=== PATIENT | female | born 1950 | race Caucasian/White ===

== ENCOUNTER → 2017-03-19 | Outpatient (CLI) | payer MEDICARE, OTHER ==
--- NOTE | 2017-03-19 11:23 | WOMENS IMAGING REPORT ---
EXAM DESCRIPTION: BONE DENSITY HIP/SPINE COMPLETED DATE/TIME: 03/19/2017 10:34 am REASON FOR STUDY: N95.9 Z12.31 ENCNTR SCREEN MAMMOGRAM FOR MALIGNANT NEOPLASM OF KAMRYN N95.9 UNSPECI FIED MENOPAUSAL AND PERIMENOPAUSAL DISORDER COMPARISON: None. TECHNIQUE: Dual-Energy X-ray Absorptiometry (DEXA) of the AP Spine and Hip. LIMITATIONS: None. FINDINGS: LUMBAR SPINE: The bone mineral density (BMD) measured from L1-L4 in the AP projection correlates with a T-score of +1.2, which is normal as defined by the World Health Organization. Please note that this does includ e vertebral body endplate sclerosis and posterior element bony sclerosis. HIP: The bone mineral density (BMD) measured in the left femoral neck at the hip correlates with a T-score of -2.1, which is osteopenic as defined by the World Health Organization. IMPRESSION: 1. LUMBAR SPINE: Normal 2. HIP: Osteopenic COMMENT: The World Health Organization defines low BMD as follows: T-score: Normal: Greater than -1.0 Osteopenia: Between -1.0 and -2.5 Osteoporosis: Less than -2.5 without fractures Established osteoporosis: Less than -2.5 with fractures In general, you may wish to consider: Diagnosis Treatment Follow-up DEXA Normal BMD Prevention 2-3 years Osteopenia Prevention/Therapy 1-2 years Osteoporosis Therapy Yearly TECHNICAL DOCUMENTATION: JOB ID: [id number] [employer]- All Rights Reserved
== END ==
LOC: WI 09:38
PROVIDERS: ATTEND Family Medicine
DX: Z12.31 Encounter for screening mammogram for malignant neoplasm of breast (principal); N95.9 Unspecified menopausal and perimenopausal disorder
CPT/HCPCS: 77063; 77080; G0202; 77067

== ENCOUNTER 2019-12-06 13:51 | Inpatient (IN) | payer MEDICARE, OTHER ==
[~2019-12-06 13:51] MED LIST: PHENYLEPHRINE HCL INJ/PF 10 MG/1 ML SDV ONE; ROCURONIUM BROMIDE INJ 50 MG/5 ML VIAL IV ONE; SUCCINYLCHOLINE CHLORIDE INJ 200 MG/10 ML VIAL ONE
[2019-12-06] MEDS ORDERED: NORMAL SALINE 1000 ML 1,000 ML IV ONE ×3 (14:18→16:36)
[2019-12-06] MEDS ORDERED: PANTOPRAZOLE SODIUM 40 MG VIAL IV ONE (14:19)
[2019-12-06 14:36] LABS: ABSOLUTE BASOPHILS # (AUTO) 0.1 10^3/uL (0.0-0.2); ABSOLUTE EOSINOPHILS # (AUTO) 0.3 10^3/uL (0.0-0.6); ABSOLUTE NEUT (AUTO) 7.6 10^3/uL (1.7-8.2); ALBUMIN 3.6 g/dL (3.5-5.0); ALKALINE PHOSPHATASE 57 U/L (38-126); ANION GAP 9 (5-19); ASPARTATE AMINO TRANSFERASE 19 U/L (14-36); BASOPHILS % (AUTO) 0.7 % (0-2); BILIRUBIN,TOTAL 0.4 mg/dL (0.2-1.3); BLOOD UREA NITROGEN 26 mg/dL (7-20); CALCIUM 8.8 mg/dL (8.4-10.2); CARBON DIOXIDE 23 mmol/L (22-30); CHLORIDE 103 mmol/L (98-107); EOSINOPHILS % (AUTO) 2.8 % (0-6); GLUCOSE 104 mg/dL (75-110); HEMATOCRIT 34.1 % (36.0-47.0); HEMOGLOBIN 11.7 g/dL (12.0-15.5); LYMPHOCYTES % (AUTO) 24.6 % (13-45); MEAN CORPUSCULAR HGB CONC 34.2 g/dL (32.0-36.0); MEAN CORPUSCULAR VOLUME 88 fl (80-97); MONOCYTES % (AUTO) 8.6 % (3-13); PLATELET COUNT 220 10^3/uL (150-450); POTASSIUM 4.7 mmol/L (3.6-5.0); RED CELL DISTRIBUTION WIDTH 16.5 % (11.5-14.0); SEGMENTED NEUTROPHILS % (AUTO) 63.3 % (42-78); TOTAL CELLS COUNTED % (AUTO) 100 %; TOTAL PROTEIN 6.3 g/dL (6.3-8.2)
--- NOTE | 2019-12-06 15:03 | ER Document Report ---
ED General - General Chief Complaint: GI Bleeding Stated Complaint: GI BLEED Time Seen by Provider: 12/06/19 14:01 Primary Care Provider: MARCOS RODRIGUEZ PA-C [Primary Care Provider] - Follow up as needed Mode of Arrival: Medic Information source: Patient TRAVEL OUTSIDE OF THE [place] IN LAST 30 DAYS: No - HPI Notes: Patient presents with the sudden onset of vomiting blood. She states she was at the grocery store when she began to have some epigastric pain and vomited blood. She states she continues to have constant epigastric pain. It is moderate in intensity. It is sharp and burning. Nothing makes it better or worse. It radiates into her back. Paramedics states she vomited approximately 500 cc of bright red blood at the scene. She has vomited several more times since she has been in the emergency department. She states she has never vomited blood in the past. No history of GI bleeds. No history of blood thinners. She states she did have bariatric surgery about 10 years ago. - Related Data Allergies/Adverse Reactions: No Known Allergies Allergy (Unverified 03/09/12 18:57) Home Medications: mobic. omeprazole Past Medical History - General Information source: Patient - Social History Smoking Status: Former Smoker Frequency of alcohol use: None Drug Abuse: None Family History: Reviewed & Not Pertinent Patient has homicidal ideation: No - Immunizations Hx Diphtheria, Pertussis, Tetanus Vaccination: No Review of Systems - Review of Systems Constitutional: Malaise, Weakness. denies: Chills, Fever Cardiovascular: denies: Chest pain, Palpitations Respiratory: denies: Cough, Short of breath -: Yes All other systems reviewed and negative Physical Exam - Vital signs Vitals: Temp 98.1 F 12/06/19 14:12 Interpretation: Normal - General General appearance: Appears well, Alert - HEENT Head: Normocephalic, Atraumatic Eyes: Normal Pupils: PERRL - Respiratory Respiratory status: No respiratory distress Chest status: Nontender Breath sounds: Normal Chest palpation: Normal - Cardiovascular Rhythm: Regular Heart sounds: Normal auscultation Murmur: No - Abdominal Inspection: Normal Distension: No distension Bowel sounds: Normal Tenderness: Tender - Mild epigastric tenderness to palpation Organomegaly: No organomegaly - Back Back: Normal, Nontender - Extremities General upper extremity: Normal inspection, Nontender, Normal color, Normal ROM, Normal temperature General lower extremity: Normal inspection, Nontender, Normal color, Normal ROM, Normal temperature, Normal weight bearing. No: Godwin's sign - Neurological Neuro grossly intact: Yes Cognition: Normal Orientation: AAOx4 Boston Coma Scale Eye Opening: Spontaneous Boston Coma Scale Verbal: Oriented Boston Coma Scale Motor: Obeys Commands Boston Coma Scale Total: 15 Speech: Normal Motor strength normal: LUE, RUE, LLE, RLE Sensory: Normal - Psychological Associated symptoms: Normal affect, Normal mood - Skin Skin Temperature: Warm Skin Moisture: Dry Skin Color: Normal Course - Re-evaluation Re-evalutation: 12/06/19 15:00 At this time patient currently has a blood pressure of 131/66. Heart rate is 108. She has not had any more significant emesis that I have seen. She has been educated about the need to be transferred. I called and spoke with interventional radiology who states that they do not have the equipment to perform an interventional procedure on this patient. I also spoke with the surgeon, Dr. Hernandez, who states that patient needs either GI or interventional. I have called [facility] who has accepted the patient in transfer. We are trying to arrange for a helicopter at this time. She is receiving Protonix and fluids. She has been typed and screened. Blood products were obviously be given if necessary. - Vital Signs Vital signs: Temp Pulse Resp BP Pulse Ox 98.1 F 106 H 16 120/79 97 12/06/19 14:21 12/06/19 14:21 12/06/19 14:21 12/06/19 14:21 12/06/19 14:21 - Laboratory Result Diagrams: 12/06/19 14:00 12/06/19 14:00 Laboratory results interpreted by me: 12/06/19 12/06/19 14:00 14:00 WBC 12.0 H Hgb 11.7 L Hct 34.1 L RDW 16.5 H Sodium 134.8 L BUN 26 H Creatinine 0.49 L Critical Care Note - Critical Care Note Total time excluding time spent on procedures (mins): 55 Comments: Approximate 55 minutes of critical care time were spent on this patient. This included multiple reassessments. And included talking to multiple consultants. It included reviewing labs. Discharge - Discharge Clinical Impression: Upper GI hemorrhage Condition: Critical Disposition: Pending Sale To [facility] Referrals: MARCOS RODRIGUEZ PA-C [Primary Care Provider] - Follow up as needed
[2019-12-06] MEDS ORDERED: NORMAL SALINE 250 ML IV PRN ×3 (15:21→22:55)
--- NOTE | 2019-12-06 16:47 | PDOC H&P ---
History of Present Illness Admission Date/PCP: 12/06/19 16:22 MARCOS RODRIGUEZ PA-C History of Present Illness: YELITZA MCMILLAN is a 69 year old vhgppi37/04/20 16:12 Initially I discussed the case with Dr. Hernandez. I also discussed it with interventional radiology here. Interventional radiology told me they did not have the coils to do the procedure. It was decided that patient's best care would be if she was transferred. Patient was accepted in transfer. While we are waiting for the helicopter to arrive patient suddenly became hypotensive, pale, diaphoretic and altered. Patient immediately had another liter of fluids started and was placed in reverse Trendelenburg. Her blood pressure did come up to 117 systolic. Pulse came down to 102. Her color did come back and became more alert and talkative. Blood had already been ordered in the meantime before this episode. We called and asked for to be rushed once this episode happened. We have now started blood transfusion. I then called Dr. Hernandez back and stated that I was concerned that maybe she was not stable for transfer. He has come and seen the patient and believes that she should not be transferred and is going to take the patient to the operating room. Past Medical History Cardiac Medical History: Reports: Hypertension Past Surgical History Past Surgical History: Reports: Gastric Bypass Surgery, Orthopedic Surgery - l. knee Social History Smoking Status: Former Smoker Family History Family History: Reviewed & Not Pertinent Parental Family History Reviewed: No Children Family History Reviewed: NA Sibling(s) Family History Reviewed.: NA Medication/Allergy Home Medications: Divalproex Sodium [Depakote Er 500 Mg Tab.Sr] 3,000 mg PO QHS 03/09/12 Allergies/Adverse Reactions: No Known Allergies Allergy (Unverified 03/09/12 18:57) Review of Systems Constitutional: PRESENT: anorexia, fatigue, weight loss Eyes: ABSENT: as per HPI, visual disturbances, other Ears: ABSENT: as per HPI, hearing changes, other Nose, Mouth, and Throat: ABSENT: as per HPI, headache(s), mouth pain, sore throat, vertigo, other Breasts: ABSENT: as per HPI, other Cardiovascular: ABSENT: as per HPI, chest pain, dyspnea on exertion, edema, orthropnea, palpitations, other Respiratory: ABSENT: as per HPI, cough, dyspnea, hemoptysis, sputum, other Gastrointestinal: PRESENT: hematemesis, melena, nausea, vomiting Genitourinary: ABSENT: as per HPI, difficulty urinating, dysuria, hematuria, nocturia, other Integumentary: ABSENT: as per HPI, diaphoresis, erythema, lesions, pruritus, rash, wounds, other Neurological: PRESENT: confusion, convulsions Endocrine: ABSENT: as per HPI, cold intolerance, flushing, heat intolerance, menstrual abnormalities, polydipsia, polyphagia, polyuria, other Hematologic/Lymphatic: ABSENT: as per HPI, easy bleeding, easy bruising, lymphad enopathy, other Allergic/Immunologic: ABSENT: as per HPI, seasonal rhinorrhea, other Physical Exam Vital Signs: Temp Pulse Resp BP Pulse Ox 97.9 F 98 14 157/70 H 99 12/06/19 16:01 12/06/19 16:31 12/06/19 16:31 12/06/19 16:30 12/06/19 16:31 Intake & Output 12/05/19 12/06/19 12/07/19 06:59 06:59 06:59 Intake Total 3300 Balance 3300 Weight 86.183 kg General appearance: PRESENT: no acute distress Head exam: PRESENT: normocephalic Eye exam: PRESENT: EOMI Ear exam: PRESENT: normal external ear exam Mouth exam: PRESENT: moist Teeth exam: PRESENT: poor dentation Respiratory exam: PRESENT: clear to auscultation shwetha Cardiovascular exam: PRESENT: RRR Pulses: PRESENT: normal radial pulses, normal femoral pulses Breast: PRESENT: Normal GI/Abdominal exam: PRESENT: soft, other - bright red blood per ng tube. Rectal exam: PRESENT: deferred Gentrourinary exam: PRESENT: indwelling catheter Extremities exam: PRESENT: full ROM Musculoskeletal exam: PRESENT: full ROM Neurological exam: PRESENT: altered, awake Skin exam: PRESENT: dry Results Laboratory Results: 12/06/19 14:00 12/06/19 14:00 12/06/19 12/06/19 12/06/19 14:00 14:00 14:00 WBC 12.0 H RBC 3.90 Hgb 11.7 L Hct 34.1 L MCV 88 MCH 30.0 MCHC 34.2 RDW 16.5 H Plt Count 220 Seg Neutrophils % 63.3 Sodium 134.8 L Potassium 4.7 Chloride 103 Carbon Dioxide 23 Anion Gap 9 BUN 26 H Creatinine 0.49 L Est GFR ( Amer) > 60 Glucose 104 Calcium 8.8 Total Bilirubin 0.4 AST 19 Alkaline Phosphatase 57 Total Protein 6.3 Albumin 3.6 Blood Type Cancelled Antibody Screen Cancelled 12/06/19 14:42 WBC RBC Hgb Hct MCV MCH MCHC RDW Plt Count Seg Neutrophils % Sodium Potassium Chloride Carbon Dioxide Anion Gap BUN Creatinine Est GFR ( Amer) Glucose Calcium Total Bilirubin AST Alkaline Phosphatase Total Protein Albumin Blood Type O POSITIVE Antibody Screen NEGATIVE Assessment & Plan - Plan Summary Plan Summary: Impression this is a 69-year-old female with a previous history of gastric bypass surgery. She has had previous history of ulcer disease which has been treated by [id number] proton pump inhibitors. She is really never been followed for her ulcer disease. She is had also had poor follow-up after gastric bypass surgery. She presents today with acute onset of vigorous upper GI bleeding hematemesis with bright red blood reported by the emergency room doctor is at [facility] 700 cc when she arrived here. That was ongoing after she had the initial 700 cc. An NG tube was placed which shows bright red blood being suctioned from her upper intestinal tract. She is also had fairly bright blood from her rectum. She remained somewhat hypotensive in the emergency room did respond initially to IV fluids but subsequent to that had another dip in her blood pressure upon waiting for the helicopter to transfer her divided. Therefore she is deemed by the emergency room physician and me is unstable for transfer at this point since she is in a Trendelenburg position with a marginal blood pressure. She is received 2 units of blood since her stay in the emergency room as well as 3 units of IV fluid she continues to have some blood per NG tube she will be taken to the operating room now for endoscopy and possible laparotomy. The risks and benefits of been explained to her caregiver which include bleeding infection pulmonary embolism stroke myocardial infarction and . She also understands the possibility of injury to adjacent organs including the pancreas the colon the small bowel the spleen and hepatic ducts. She understands the possibility of need for additional surgery and continued bleeding postoperatively. She will be given an ICU bed subsequent to her surgery.
--- NOTE | 2019-12-06 16:50 | Operative Report ---
Nonrecallable Operative Report DATE OF SURGERY: 12/06/19 PREOPERATIVE DIAGNOSIS: GI bleeding, hypotension due to to hemorrhagic shock. POSTOPERATIVE DIAGNOSIS: GI bleeding hypotension due to hemorrhagic shock. OPERATION: Right femoral line placement SURGEON: AMINAH COSTA ANESTHESIA: Local TISSUE REMOVED OR ALTERED: None COMPLICATIONS: None ESTIMATED BLOOD LOSS: 5 cc INTRAOPERATIVE FINDINGS: See note PROCEDURE: After appropriate timeout site verification the right groin was prepped and dr aped in usual sterile fashion. Using 1% lidocaine plain a small skin wheal was made over the femoral vein. The vein was then accessed with a 22-gauge needle for a finder needle. After appropriate contact of the vein was made we then use a 16-gauge needle passed into the vein through the needle a J-wire was placed into the inferior vena cava. A small skin diamond was made on this at the skin level with a an 11 blade. The dilator was then utilized to dilate a tract. The dilator was then removed and a triple-lumen catheter was placed over the wire secured in place with 2-0 silk suture. Patient tolerated the procedure well. Estimated blood loss 5 cc no complications
[2019-12-06] MEDS ORDERED: EPINEPHRINE INJ 1 MG/10 ML DISP.SYRIN ONE (17:05)
[2019-12-06] MEDS ORDERED: DEXAMETHASONE SOD PHOSPHATE INJ 4 MG/1 ML VIAL ONE (17:06)
[2019-12-06] MEDS ORDERED: ONDANSETRON HCL INJ/PF 4 MG/2 ML SDV ONE (17:06)
[2019-12-06] MEDS ORDERED: MIDAZOLAM 2 MG/2 ML INJ ONE (17:06)
[2019-12-06] MEDS ORDERED: FENTANYL CITRATE INJ/PF 100 MCG/2 ML AMPUL ONE ×3 (17:06→22:31)
[2019-12-06] MEDS ORDERED: PROPOFOL INJ 200 MG/20 ML VIAL IV ONE (17:07)
[2019-12-06 18:16] LABS: ABSOLUTE BASOPHILS # (AUTO) 0.1 10^3/uL (0.0-0.2); ABSOLUTE EOSINOPHILS # (AUTO) 0.1 10^3/uL (0.0-0.6); ABSOLUTE LYMPHOCYTES (AUTO) 1.6 10^3/uL (0.5-4.7); ABSOLUTE MONOCYTES (AUTO) 0.6 10^3/uL (0.1-1.4); ABSOLUTE NEUT (AUTO) 8.1 10^3/uL (1.7-8.2); BASOPHILS % (AUTO) 0.8 % (0-2); HEMATOCRIT 25.8 % (36.0-47.0); LYMPHOCYTES % (AUTO) 15.4 % (13-45); MEAN CORPUSCULAR HEMOGLOBIN 30.3 pg (27.0-33.4); MEAN CORPUSCULAR HGB CONC 34.9 g/dL (32.0-36.0); MEAN CORPUSCULAR VOLUME 87 fl (80-97); MONOCYTES % (AUTO) 5.8 % (3-13); PLATELET COUNT 147 10^3/uL (150-450); RED BLOOD COUNT 2.98 10^6/uL (3.72-5.28); RED CELL DISTRIBUTION WIDTH 14.6 % (11.5-14.0); TOTAL CELLS COUNTED % (AUTO) 100 %; WHITE BLOOD COUNT 10.5 10^3/uL (4.0-10.5)
[2019-12-06] MEDS ORDERED: CALCIUM GLUC IN NACL, ISO-OSM 1 GM/50 ML RTUPB IV ONE (18:22)
[2019-12-06] MEDS ORDERED: CALCIUM GLUCONATE 1000 MG/10 ML INJ IV ONE (18:23)
[2019-12-06] MEDS ORDERED: CEFAZOLIN INJ 1 GM VIAL ONE (18:29)
[2019-12-06] MEDS ORDERED: METRONIDAZOLE 500 MG/NS RTU 500 MG/100 ML RTUPB IV ONE (18:29)
[2019-12-06] MEDS ORDERED: METHYLENE BLUE 50 MG/10 ML AMPULE ONE (19:05)
--- NOTE | 2019-12-06 19:08 | EKG REPORT ---
SEVERITY:- ABNORMAL ECG - SINUS TACHYCARDIA PROBABLE INFERIOR INFARCT, OLD LA ENLARGEMENT : Confirmed by: Eugene Weiner MD 06-Dec-2019 19:07:48
[2019-12-06] MEDS ORDERED: RINGERS SOLUTION,LACTATED 1,000 ML IV ONE (21:20)
[2019-12-06] MEDS ORDERED: FENTANYL CITRATE INJ/PF 100 MCG/2 ML AMPUL IV ONE ×2 (22:00→22:51)
[2019-12-06 22:17] LABS: ARTERIAL BLOOD BASE EXCESS -13.8 mmol/L; ARTERIAL BLOOD H2CO3 1.21 mmol/L (1.05-1.35); ARTERIAL BLOOD HCO3 13.8 mmol/L (20-24); ARTERIAL BLOOD PCO2 40.3 mmHg (35-45); ARTERIAL BLOOD PO2 139.5 mmHg (80-100); ARTERIAL BLOOD TOTAL CO2 15.1 mmol/L (21-25)
[2019-12-06 22:20] LABS: ARTERIAL BLOOD FIO2 40%; HEMATOCRIT 20.6 % (36.0-47.0); MEAN CORPUSCULAR HEMOGLOBIN 30.7 pg (27.0-33.4); MEAN CORPUSCULAR HGB CONC 33.7 g/dL (32.0-36.0); RED BLOOD COUNT 2.26 10^6/uL (3.72-5.28); RED CELL DISTRIBUTION WIDTH 14.6 % (11.5-14.0); WHITE BLOOD COUNT 11.3 10^3/uL (4.0-10.5)
[2019-12-06 22:21] LABS: ARTERIAL BLOOD PH 7.15 (7.35-7.45)
[2019-12-06 22:29] LABS: INTERNATIONAL RATION (INR) 1.65; PROTHROMBIN TIME 19.7 SEC (11.4-15.4)
[2019-12-06 22:30] LABS: PARTIAL THROMBOPLASTIN TIME 31.9 SEC (23.5-35.8)
[2019-12-06 22:34] LABS: ALBUMIN 1.5 g/dL (3.5-5.0); ALKALINE PHOSPHATASE 30 U/L (38-126); ANION GAP 11 (5-19); ASPARTATE AMINO TRANSFERASE 93 U/L (14-36); BILIRUBIN,TOTAL 0.2 mg/dL (0.2-1.3); BLOOD UREA NITROGEN 24 mg/dL (7-20); CARBON DIOXIDE 16 mmol/L (22-30); CHLORIDE 107 mmol/L (98-107); GLUCOSE 297 mg/dL (75-110); PHOSPHORUS 5.5 mg/dL (2.5-4.5); POTASSIUM 4.4 mmol/L (3.6-5.0); TOTAL PROTEIN 3.1 g/dL (6.3-8.2)
--- NOTE | 2019-12-06 22:36 | RADIOLOGY REPORT (SQ) ---
CLINICAL INDICATION: intubated, check tube placement. TECHNIQUE: A single portable AP view was obtained of the chest at 2148 hours. COMPARISON: None available. FINDINGS: The cardiomediastinal silhouette is prominent. The lungs are of low volume but grossly clear. No evidence of effusion or pneumothorax. Endotracheal tube tip and nasogastric tube tip are both in satisfactory position. There also appears to be a left basilar chest drain Right shoulder obscured by postprocessing markers. IMPRESSION: Endotracheal tube and nasogastric tube are in satisfactory position.. There also appears be a left basilar chest drain.
[2019-12-06 22:40] LABS: FIBRINOGEN 139 mg/dL (209-497)
[2019-12-06 22:44] LABS: CALCIUM 6.8 mg/dL (8.4-10.2)
[2019-12-06 22:53] LABS: HEMOGLOBIN 6.9 g/dL (12.0-15.5); PLATELET COUNT 85 10^3/uL (150-450)
[2019-12-06] MEDS ORDERED: RINGERS SOLUTION,LACTATED 1,500 ML IV ONE (22:54)
[2019-12-06] MEDS ORDERED: DEXTROSE 50%-WATER 25 GM/50 ML DISP.SYRIN IV PRN ×2 (22:57)
[2019-12-06] MEDS ORDERED: GLUCAGON,HUMAN RECOMB 1 MG INJ SUBCUT PRN (22:57)
[2019-12-06] MEDS ORDERED: DEXTROSE 40% GEL 15 GM TUBE PO PRN ×2 (22:57)
[2019-12-06] MEDS ORDERED: MAGNESIUM SULFATE 4 GM/100 ML RTUPB IV ONE ×2 (23:00→23:38)
[2019-12-06 23:05] LABS: MEAN CORPUSCULAR VOLUME 91 fl (80-97)
[2019-12-06] MEDS ORDERED: DEXMEDETOMIDINE IN 0.9 % NACL 400 MCG/100 ML RTUPB IV PRN (23:28)
[2019-12-06] MEDS ORDERED: HYDROMORPHONE HCL INJ/PF 2 MG/ML AMPULE ONE (23:43)
[2019-12-06] MEDS ORDERED: DEXMEDETOMIDINE IN 0.9 % NACL 400 MCG/100 ML RTUPB IV ONE (23:44)
[2019-12-06] MEDS: RINGERS SOLUTION,LACTATED 1,000 ML IV PRN (23:50)
[2019-12-06] MEDS ORDERED: HYDROMORPHONE HCL INJ/PF 2 MG/ML AMPULE IV ONE (23:59)
[2019-12-06] MEDS ORDERED: METHOCARBAMOL INJ/PF 1000 MG/10 ML SDV IV ONE (23:59)
[2019-12-07] MEDS: ALBUMIN HUMAN 12.5 GM/50 ML RTUINJ IV PRN ×4 (00:05→05:00)
[2019-12-07] MEDS ORDERED: METHOCARBAMOL INJ/PF 1000 MG/10 ML SDV ONE (00:22)
[2019-12-07] MEDS ORDERED: NORMAL SALINE 250 ML IV PRN ×3 (00:31→03:02)
[2019-12-07] MEDS: MIDAZOLAM 2 MG/2 ML INJ IV PRN ×2 (01:38→04:48)
--- NOTE | 2019-12-07 01:43 | Operative Report ---
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 After appropriate timeout site verification the procedure commenced. The Olympus gastroscope was passed into the posterior pharynx and easily traversed the upper esophageal sphincter into the esophagus. Upon reaching the proximal esophagus there is a large amount of blood clot noted in the esophagus this was suctioned to gain better visualization. We finally were able to manipulate the scope down to the GE junction and noted a moderate sized hiatal hernia. Scope traversed the hiatal hernia into the gastric pouch upon reaching the gastric pouch there was a large amount of clot noted this was also suctioned free. After using a large amount of irrigant and suction we were finally able to identify the gastrojejunal anastomosis. On the posterior side of the anastomosis there was a large clot that was noted with debris this was difficult to clear of the clot but finally after some irrigation and suction we were able to identify the posterior ulcer that was bleeding vigorously. There was a constant pulsatile stream of blood noted from the posterior portion of the ulcer with a vessel that could not easily be identified but we could noted the navjot nued arterial bleed. The bleed was very vigorous and I did not feel that it could be controlled with either epinephrine injection or clips. For this reason the scope was then withdrawn. The patient's abdomen was quickly prepped and draped. A midline incision was used from the xiphoid to just below the umbilicus dissection was carried down through subtenons tissue with Bovie cautery the midline fascia was entered she had a large ventral hernia with colon adhesed in the ventral hernia which was removed with blunt dissection.. Finally we were able to gain access to the abdominal cavity and mobilized the loose adhesions from the anterior abdominal wall with sharp and blunt dissection. Once we are able to do that we placed a Bookwalter retractor and upper arms. We we were able to gain access to the upper abdomen. I then identified the Curtis limb and noted that the colon was full of blood as well as the Curtis limb. We mobilized the gastric remnant as well as the Curtis limb and and gastric pouch away from the undersurface first of the left lobe of the liver. We then were able to mobilize the triangular ligament of the left lobe of the liver with Bovie cautery and then retracted the left lobe of the liver medially. This gave us better access to the upper abdomen and the gastric pouch. Once I was able to identify the gastric pouch I got better visualization of the gastrojejunal anastomosis. It appeared that there was an ulcer on the lesser curvature of the gastric pouch that was penetrating the top of the pancreas and the left gastric artery. I was able to bluntly mobilize the left gastric artery away from the top of the pancreas and came across it with the LigaSure device. As I divided that we noted that the ulcer had been penetrating the top of the pancreas and it at this point now was open after I divided the left gastric artery with the LigaSure device. this maneuver was able to stem the bleeding. Once we divided the ulcer off the top of the pancreas and control the left gastric artery we then came across the proximal gastric pouch with 2 firings of the Endo ANITRA stapler with a green load. The the distal gastric pouch from the more proximal portion of it and the GE junction. Once this was completed I then divided the Curtis limb just distal to the anastomosis with one firing of the Endo ANITRA stapler with a blue load. I then mobilized the gastric pouch away from the short gastric vessels with the LigaSure device and then completely mobilized the gastric pouch and proximal Curtis limb and then remove that section of stomach and jejunum. The Curtis limb appeared to be in the retrogastric position I mobilized away from the gastric remnant. Once this was completed the bleeding seemed to stop in the reconstructive portion of the procedure commenced. I asked anesthesia to pass a 21 mm Orvil device and noted it in the abdomen and in the gastric pouch I used the Bovie cautery and made a small rent in the gastric pouch and pulled the Orvil device into it. I then and opened up the end of the Curtis limb passed a 21 mm EEA stapler into the end of the Curtis limb pierced it out it side connected to the Orvil l device in the remaining gastric pouch closed and fired creating a new gastrojejunostomy. I amputated off the end of the Curtis limb the pant leg with one firing the Endo ANITRA stapler with a blue load. I then asked anesthesia to pass an NG tube and that was manipulated past the new anastomosis into the proximal Curtis limb. I placed a bowel clamp on the Curtis limb distal to the NG tube and asked anesthesia to fill it with methylene blue dyed saline and under some pressure. There is no leak from the anastomosis. I reinforced the new gastrojejunal anastomosis with interrupted 2-0 silk suture. Once this was completed we then turned attention to the jejunum just distal to the jejunojejunostomy I used a small section of bowel for a feeding tube. I used a Dobbhoff feeding tube passed in through the left abdominal wall and made a pursestring suture in the jejunum with 2-0 chromic suture. I placed a Dobbhoff tube into the jejunum tied down the chromic suture and performed a Witzel maneuver with 2-0 silk suture. Once this was completed I tacked this up to the left abdominal wall with interrupted placed 2-0 silk suture. We irrigated out the abdominal cavity. I palpated the splenic artery which was intact I palpated the hepatic artery which was intact and the left gastric artery has been taken with the LigaSure device. There is no significant bleeding from the left gastric artery however I did place a [id number] 2-0 silk suture in the stump of it. Again we checked it for any residual bleeding there was none there was some mild ooze from the splenic hilum which was controlled with FloSeal and Surgicel pack. Once we remove the laparotomy sponges it was dry and the irrigant was clear after re-irrigation the abdominal cavity. I then used 2 Martin-Chavez drains placed on each side of the new gastrojeju nostomy and brought them out through the right and left abdominal wall. I then closed the midline fascia with a running double looped 0 PDS suture. The skin was then closed with standard skin clips. Estimated blood loss for the procedure was 600 cc from the abdominal portion of the procedure however the patient lost an additional 200 cc of blood from the bleeding ulcer during the endoscopy. For a total of approximately 800 cc blood loss. Patient received only 2 units of packed red cells during the procedure. She was then transferred directly to the intensive care unit for continued resu scitation. Her blood pressure after the operation was approximately 90-100 systolic. Sponge needle counts were correct x2 at the termination of the procedure.
[2019-12-07] MEDS ORDERED: CEFAZOLIN SODIUM 0.5 GM in DEXTROSE 5%-WATER 25 ML IV SCH ×2 (02:00→04:00)
[2019-12-07] MEDS ORDERED: VASOPRESSIN INJ 20 UNIT/1 ML VIAL IV ONE (02:15)
[2019-12-07] MEDS: FENTANYL CITRATE INJ/PF 100 MCG/2 ML AMPUL IV PRN ×3 (02:16→10:11)
[2019-12-07 02:22] LABS: ARTERIAL BLOOD BASE EXCESS -6.1 mmol/L; ARTERIAL BLOOD H2CO3 1.32 mmol/L (1.05-1.35); ARTERIAL BLOOD HCO3 20.4 mmol/L (20-24); ARTERIAL BLOOD O2 SATURATION 90.4 % (94-98); ARTERIAL BLOOD PCO2 43.9 mmHg (35-45); ARTERIAL BLOOD PH 7.29 (7.35-7.45); ARTERIAL BLOOD PO2 65.1 mmHg (80-100); ARTERIAL BLOOD TOTAL CO2 21.7 mmol/L (21-25)
--- NOTE | 2019-12-07 02:24 | Operative Report ---
Bedside Procedure - History of Present Illness History of Present Illness: YELITZA MCMILLAN is a 69 year old female with PMH hypothyroidism, epilepsy, HTN, and Curtis-en-y gastric bypass surgery who presented to [facility] with hematemesis. She was subsequently taken to the OR and found to have a marginal ulcer at the Curtis-gastric anastamosis site, resulting in an exploratory laparotomy with gastrectomy and esophagojejunal anastamosis. Postoperatively she was admitted to the ICU with hypotension, sanguineous drainage from both abdominal BAN's. She received 2L of LR transiently improving her BP. Given refractory hypotension in setting of GI bleeding/hypovolemia, it is prudent to proceed with an arterial line for closer hemodynamic monitoring. PROCEDURE: ARTERIAL LINE PROCEDURALIST: MOHAN PINO ANESTHESIA: 2 ML 1% LIDOCAINE COMPLICATIONS: NONE Consent obtained from patient's sister. Patient placed in proper procedural position followed by prepping and draping in usual sterile fashion. Utilizing ultrasound with a sterile sleeve and lubricant, the left radial artery was identified and the subcutaneous tissue superficial to the artery was anesthetized with 1% lidocaine. Next, a preloaded 18-gauge 4.45 cm catheter over 20-gauge introducer needle with internal guide wire was visualized entering the left radial artery with return of pulsatile blood. The guidewire was advanced through the needle into the left radial artery, the catheter was then advanced over the wire into the artery and the needle as well as guidewire were removed, again noting a pulsatile flow of blood from the catheter. Catheter was secured with a suture, hooked up to transducer tubing in usual fashion, and a sterile occlusive transparent dressing was applied. Patient tolerated procedure well. No complications. EBL 3 mL Indication for Procedure: refractory hypotension due to blood loss Date: 12/06/19 Provider: WILDA CHARLES
[2019-12-07 02:26] LABS: ARTERIAL BLOOD FIO2 30%
--- NOTE | 2019-12-07 02:28 | CRITICAL CARE ADMISSION REPORT ---
HPI Date:: 12/06/19 Time:: 21:00 Reason for ICU Reason:: s/p gastrectomy with esophagojejnal anastamosis, on mechanically assisted ventilator, hypotension due to blood loss HPI: YELITZA BROWN is a 69 year old female with PMH hypothyroidism, epilepsy, HTN, and Curtis-en-y gastric bypass surgery who presented to [facility] with hematemesis. While waiting in the ED for air transport to arrive and take her to another medical center, Mrs Brown suddenly became unstable with hypotension, pallor, diaphoretic and altered mental status for which she received IV fluids as well as 2 PRBC's and was taken to the OR by Dr Hernandez. Findings: marginal bleeding ulcer at gastro-jejunal anastamosis of Curtis limb that had eroded into the left gastric artery. She now presents to ICU status post gastrectomy with esophagojejunal anastamosis, J-tube placement, bridled NG tube, and two abdominal BAN drains for weaning from mechanical ventilator as well as hypotension due to bleeding for which she will require ongoing resuscitation. History obtained from:: medical record, RN - Diagnosis/Plan (1) Upper GI hemorrhage Is this a current diagnosis for this admission?: Yes Plan: Marginal ulcer of Curtis-gastric anastamosis now status post exploratory laparotomy with esophagojejunal anastomosis. Replete clotting factors Serial H&H, transfuse PRBCs PRN Monitor output quantity/characteristics from BAN drains and nasojejunal tube (2) Marginal ulcer Is this a current diagnosis for this admission?: Yes Plan: Plan as above (3) Hypotension due to blood loss Is this a current diagnosis for this admission?: Yes Plan: Resuscitate PRN with a preference of blood and clotting factors. We will also need crystalloid solution. Check cortisol level to determine if adrenal insufficiency and need for steroids. In a follow-up discussion with surgery, sounds like patient has cumulatively bled more than initially thought and that patient may have nearly had entire blood volume replaced. This concerns me for arginine vasopressin depletion for which I will give 40 units of exogenous Vasopressin; discussed with Dr Hernandez. (4) Acute blood loss anemia Is this a current diagnosis for this admission?: Yes Plan: Plan as above (5) Hypofibrinogenemia Is this a current diagnosis for this admission?: Yes Plan: Give 1 unit of cryoprecipitate (6) On mechanically assisted ventilation Is this a current diagnosis for this admission?: Yes Plan: Continue full mechanical ventilatory support while resuscitating. Goal is for spontaneous breathing trial in the early childhood assistant if hemodynamically stable. Decrease FiO2 in light of the ABG results. (7) Acute postoperative pain Is this a current diagnosis for this admission?: Yes Plan: Unable to utilize fentanyl gtt for analgosedation due to institutional drug shortage. Several pushes have been utilized which are effective but short-lived. Now that BP improved with blood products, will administer Dilaudid 1 mg now and evaluate response. Seek to avoid oversedation so patient can be liberated from ventilator tomorrow if hemodynamically stable. Can augment with low dose Precedex which has some analgesic properties, mon itoring HR/BP. Multimodal pain control with Ofirmev and Robaxin IV. (8) Hypomagnesemia Is this a current diagnosis for this admission?: Yes Plan: Give 4 g of magnesium sulfate. Check another magnesium level in 24 hours. (9) Hypothyroidism Qualifiers: Hypothyroidism type: unspecified Qualified Code(s): E03.9 - Hypothyroidism, unspecified Is this a current diagnosis for this admission?: Yes Plan: Resume levothyroxine when determine home dose (10) Epilepsy Qualifiers: Epilepsy type: unspecified Intractability: not intractable Status epilepticus: without status epilepticus Qualified Code(s): G40.909 - Epilepsy, unspecified, not intractable, without status epilepticus Is this a current diagnosis for this admission?: Yes Plan: Hx epilepsy on Depakote. Resume home Depakote albeit in IV form for now until cleared for PO. Will check valproic level first Past Medical History Cardiac Medical History: Reports: Hypertension Neurological Medical History: Reports: Seizures - Epilepsy Endocrine Medical History: Reports: Hypothyroidism Past Surgical History Past Surgical History: Reports: Gastric Bypass Surgery, Orthopedic Surgery - left knee Social/Family History - Social History Social History Note: unable to obtain at this time due to endotracheal tube and agitation Smoking Status: Former Smoker - Medication/Allergies Home Medications: Divalproex Sodium [Depakote Er 500 Mg Tab.Sr] 3,000 mg PO QHS 03/09/12 Allergies/Adverse Reactions: No Known Allergies Allergy (Unverified 03/09/12 18:57) Review of Systems ROS unobtainable: Due to endotracheal tube Physical Exam Vital Signs: Temp Pulse Resp BP Pulse Ox 97.4 F 101 H 16 156/64 H 100 12/06/19 23:31 12/06/19 23:31 12/06/19 23:31 12/06/19 23:31 12/06/19 23:31 Intake & Output 12/05/19 12/06/19 12/07/19 06:59 06:59 06:59 Intake Total 45822 Output Total 870 Balance 9185 Weight 86.183 kg Weight/Height Weight 86.183 kg Height 5 ft 8 in General appearance: PRESENT: no acute distress, cooperative, morbidly obese Head exam: PRESENT: atraumatic, normocephalic Eye exam: PRESENT: conjunctiva pink, EOMI, PERRLA, other - scleral edema bilaterally. ABSENT: periorbital swelling Ear exam: PRESENT: normal external ear exam Mouth exam: PRESENT: dry mucosa, neck supple, tongue midline Throat exam: PRESENT: other - ETT and NG tubes in place Neck exam: ABSENT: JVD, lymphadenopathy, tenderness, tracheal deviation Respiratory exam: PRESENT: clear to auscultation shwetha, symmetrical, unlabored. ABSENT: accessory muscle use, tachypnea Cardiovascular exam: PRESENT: +S1, +S2 Pulses: PRESENT: other - thready peripheral pulses to radial/DP/PT bilaterally Vascular exam: PRESENT: pallor GI/Abdominal exam: PRESENT: soft, other - protuberant, midline ex-lap incision C/D/I, 2 abdominal BAN drains to bulb compression with sanguineous drainage. ABSENT: rigid Rectal exam: PRESENT: deferred Gentrourinary exam: PRESENT: indwelling catheter Extremities exam: ABSENT: calf tenderness, pedal edema, tenderness Musculoskeletal exam: PRESENT: normal inspection. ABSENT: tenderness Neurological exam: PRESENT: awake, other - following commands, though understandably agitated from endotracheal tube, nods head yes to having abdominal incisional pain Skin exam: PRESENT: dry, intact, pallor, other - cool to touch. ABSENT: jaundice Laboratory/Radiographs Laboratory Results: 12/06/19 21:55 12/06/19 21:55 12/06/19 12/06/19 12/06/19 14:00 14:00 14:00 WBC 12.0 H RBC 3.90 Hgb 11.7 L Hct 34.1 L MCV 88 MCH 30.0 MCHC 34.2 RDW 16.5 H Plt Count 220 Seg Neutrophils % 63.3 Carbonic Acid HCO3/H2CO3 Ratio ABG pH ABG pCO2 ABG pO2 ABG HCO3 ABG O2 Saturation ABG Base Excess FiO2 Sodium 134.8 L Potassium 4.7 Chloride 103 Carbon Dioxide 23 Anion Gap 9 BUN 26 H Creatinine 0.49 L Est GFR ( Amer) > 60 Glucose 104 Calcium 8.8 Ionized Calcium Vandana Phosphorus Magnesium Total Bilirubin 0.4 AST 19 Alkaline Phosphatase 57 Total Protein 6.3 Albumin 3.6 Blood Type Cancelled Antibody Screen Cancelled 12/06/19 12/06/19 12/06/19 14:42 17:59 21:55 WBC 10.5 RBC 2.98 L Hgb 9.0 L D Hct 25.8 L MCV 87 MCH 30.3 MCHC 34.9 RDW 14.6 H Plt Count 147 L Seg Neutrophils % 77.0 Carbonic Acid 1.21 HCO3/H2CO3 Ratio 11:1 ABG pH 7.15 L* ABG pCO2 40.3 ABG pO2 139.5 H ABG HCO3 13.8 L ABG O2 Saturation 98.0 ABG Base Excess -13.8 FiO2 40% Sodium Potassium Chloride Carbon Dioxide Anion Gap BUN Creatinine Est GFR ( Amer) Glucose Calcium Ionized Calcium Vandana 1.07 L Phosphorus Magnesium Total Bilirubin AST Alkaline Phosphatase Total Protein Albumin Blood Type O POSITIVE Antibody Screen NEGATIVE 12/06/19 12/06/19 21:55 21:55 WBC 11.3 H RBC 2.26 L Hgb 6.9 L D Hct 20.6 L MCV 91 D MCH 30.7 MCHC 33.7 RDW 14.6 H Plt Count 85 L Seg Neutrophils % Carbonic Acid HCO3/H2CO3 Ratio ABG pH ABG pCO2 ABG pO2 ABG HCO3 ABG O2 Saturation ABG Base Excess FiO2 Sodium 133.8 L Potassium 4.4 Chloride 107 Carbon Dioxide 16 L Anion Gap 11 BUN 24 H Creatinine 0.69 Est GFR ( Amer) > 60 Glucose 297 H Calcium 6.8 L* Ionized Calcium Vandana Phosphorus 5.5 H Magnesium 1.4 L Total Bilirubin 0.2 AST 93 H Alkaline Phosphatase 30 L Total Protein 3.1 L Albumin 1.5 L Blood Type Antibody Screen Impressions: Chest X-Ray 12/06/19 00:00 IMPRESSION: Endotracheal tube and nasogastric tube are in satisfactory position.. There also appears be a left basilar chest drain. POCUS performed by myself upon initial evaluation of hypotension demonstrates profound hypovolemia with extremely underfilled ventricles. Unable to fully evaluate ventricular wall motion due to this. All labs, radiographs, diagnostic studies and EKGs were personally reviewed: Yes In addition, reports of radiographic and diagnostic studies were read: Yes Critical Time Critical Time (minutes): 120 -: The care of a critically ill patient is dynamic. This note represents a static moment in the admission process. Orders and treatments may be given simultaneously and urgently, and time is not jewelry sales representative of the treatment process. This patient requires Critical Care secondary to life threatening organ or limb dysfunction. Without Critical Care services, the patient is at risk for increased mortality and morbidity.
[2019-12-07 02:29] LABS: HEMATOCRIT 33.4 % (36.0-47.0); MEAN CORPUSCULAR HEMOGLOBIN 30.7 pg (27.0-33.4); MEAN CORPUSCULAR HGB CONC 35.1 g/dL (32.0-36.0); MEAN CORPUSCULAR VOLUME 88 fl (80-97); RED BLOOD COUNT 3.82 10^6/uL (3.72-5.28); RED CELL DISTRIBUTION WIDTH 14.3 % (11.5-14.0)
[2019-12-07 02:30] LABS: INTERNATIONAL RATION (INR) 1.26; PROTHROMBIN TIME 15.9 SEC (11.4-15.4)
[2019-12-07 02:31] LABS: FIBRINOGEN 206 mg/dL (209-497); PARTIAL THROMBOPLASTIN TIME 29.7 SEC (23.5-35.8)
[2019-12-07 02:48] LABS: HEMOGLOBIN 11.7 g/dL (12.0-15.5); PLATELET COUNT 46 10^3/uL (150-450); WHITE BLOOD COUNT 23.1 10^3/uL (4.0-10.5)
[2019-12-07 02:52] LABS: ANION GAP 8 (5-19); BLOOD UREA NITROGEN 26 mg/dL (7-20); CALCIUM 7.4 mg/dL (8.4-10.2); CARBON DIOXIDE 20 mmol/L (22-30); CHLORIDE 107 mmol/L (98-107); GLUCOSE 120 mg/dL (75-110); POTASSIUM 4.8 mmol/L (3.6-5.0)
[2019-12-07] MEDS ORDERED: METRONIDAZOLE 500 MG/NS RTU 250 MG in CONTAINER,EMPTY 1 EACH IV SCH ×2 (04:00→04:30)
[2019-12-07] MEDS ORDERED: CEFAZOLIN 1 GM/D5W RTU 0 GM/0 ML RTUPB IV ONE (04:02)
[2019-12-07] MEDS ORDERED: CEFAZOLIN INJ 1 GM VIAL ONE (04:03)
[2019-12-07] MEDS ORDERED: METRONIDAZOLE 500 MG/NS RTU 0 MG/0 ML RTUPB IV ONE (04:04)
[2019-12-07] MEDS ORDERED: CEFAZOLIN SODIUM IV SCH (05:45)
[2019-12-07] MEDS ORDERED: WATER IV SCH (05:45)
[2019-12-07] MEDS ORDERED: DEXTROSE 5% IV SCH (05:45)
[2019-12-07] MEDS ORDERED: CEFAZOLIN 1 GM/D5W RTU 1 GM/50 ML RTUPB IV ONE (05:58)
[2019-12-07] MEDS ORDERED: METRONIDAZOLE 500 MG/NS RTU 500 MG/100 ML RTUPB IV ONE (05:58)
[2019-12-07] MEDS ORDERED: ACETAMINOPHEN 1,000 MG/100 ML RTUPB IV ONE (06:07)
[2019-12-07] MEDS: ACETAMINOPHEN 1,000 MG/100 ML RTUPB IV SCH ×3 (06:12→21:56)
[2019-12-07] MEDS ORDERED: METRONIDAZOLE 500 MG/NS RTU 500 MG in CONTAINER,EMPTY 1 EACH IV SCH (06:30)
[2019-12-07] MEDS ORDERED: CEFAZOLIN 1 GM/D5W RTU 1 GM/50 ML RTUPB IV SCH (06:30)
[2019-12-07] MEDS: METRONIDAZOLE 500 MG/NS RTU 500 MG/100 ML RTUPB IV SCH ×3 (06:38→18:11)
[2019-12-07] MEDS: CEFAZOLIN 1 GM/D5W RTU 1 GM/50 ML RTUPB IV SCH ×3 (06:38→22:06)
[2019-12-07] MEDS ORDERED: RINGERS SOLUTION,LACTATED 500 ML IV ONE (06:52)
[2019-12-07] MEDS ORDERED: CEFAZOLIN SODIUM 1 GM in DEXTROSE 5%-WATER 50 ML IV SCH (07:00)
--- NOTE | 2019-12-07 07:51 | EKG REPORT ---
SEVERITY:- ABNORMAL ECG - SINUS RHYTHM LOW VOLTAGE IN FRONTAL LEADS AGE UNDETERMINED INFERIOR TX : Confirmed by: Eugene Weiner MD 07-Dec-2019 07:51:10
[2019-12-07 08:25] LABS: HEMATOCRIT 27.3 % (36.0-47.0); HEMOGLOBIN 9.8 g/dL (12.0-15.5); MEAN CORPUSCULAR HEMOGLOBIN 30.6 pg (27.0-33.4); MEAN CORPUSCULAR HGB CONC 35.8 g/dL (32.0-36.0); MEAN CORPUSCULAR VOLUME 86 fl (80-97); RED BLOOD COUNT 3.19 10^6/uL (3.72-5.28); RED CELL DISTRIBUTION WIDTH 14.2 % (11.5-14.0); WHITE BLOOD COUNT 18.9 10^3/uL (4.0-10.5)
[2019-12-07 08:41] LABS: PLATELET COUNT 98 10^3/uL (150-450)
[2019-12-07] MEDS: LEVOTHYROXINE SODIUM INJ/PF 0.1 MG SDV IV SCH (10:06)
[2019-12-07] MEDS: RINGERS SOLUTION,LACTATED 1,000 ML IV PRN ×2 (10:24→20:59)
[2019-12-07 10:30] LABS: ARTERIAL BLOOD BASE EXCESS -4.1 mmol/L; ARTERIAL BLOOD H2CO3 1.25 mmol/L (1.05-1.35); ARTERIAL BLOOD HCO3 21.5 mmol/L (20-24); ARTERIAL BLOOD O2 SATURATION 84.5 % (94-98); ARTERIAL BLOOD PCO2 41.6 mmHg (35-45); ARTERIAL BLOOD PH 7.33 (7.35-7.45); ARTERIAL BLOOD PO2 51.9 mmHg (80-100); ARTERIAL BLOOD TOTAL CO2 22.8 mmol/L (21-25)
[2019-12-07 10:32] LABS: ARTERIAL BLOOD FIO2 35%
[2019-12-07 11:28] LABS: HEMATOCRIT 28.5 % (36.0-47.0); HEMOGLOBIN 10.3 g/dL (12.0-15.5); MEAN CORPUSCULAR HEMOGLOBIN 30.8 pg (27.0-33.4); MEAN CORPUSCULAR HGB CONC 36.1 g/dL (32.0-36.0); MEAN CORPUSCULAR VOLUME 85 fl (80-97); PLATELET COUNT 135 10^3/uL (150-450); RED BLOOD COUNT 3.34 10^6/uL (3.72-5.28); RED CELL DISTRIBUTION WIDTH 14.3 % (11.5-14.0)
[2019-12-07] MEDS ORDERED: MORPHINE SULFATE 10 MG/ML INJ IV ONE (11:29)
--- NOTE | 2019-12-07 12:52 | CDI QUERY ---
CDI Query CDI Review: DEAR PROVIDER PLEASE DOCUMENT IN PROGRESS NOTES AND D/C SUMMARY IF YOU AGREE WITH THE CLINICAL FINDINGS: HYPOVOLEMIC SHOCK? HEMORRHAGIC SHOCK? OTHER? MULTIPLE PRBC INFUSION CRYOPRECIPITATE CRYSTALLOID IVF VASOPRESSIN CONTINUED RESUSITATION
[2019-12-07] MEDS: MORPHINE SULFATE 10 MG/ML INJ IV PRN ×4 (13:16→23:29)
--- NOTE | 2019-12-07 14:33 | PDOC PROGRESS REPORT ---
Subjective Progress Note for:: 12/07/19 Subjective:: awake, exutbated, feesl better Reason For Visit: UPPER GI BLEED Physical Exam Vital Signs: Temp Pulse Resp BP Pulse Ox 98.4 F 114 H 22 H 164/87 H 96 12/07/19 12:00 12/07/19 12:00 12/07/19 12:00 12/07/19 12:00 12/07/19 12:00 Intake & Output 12/06/19 12/07/19 12/08/19 06:59 06:59 06:59 Intake Total 48926 1483 Output Total 1605 940 Balance 9863 543 Weight 103.1 kg 103.1 kg General appearance: PRESENT: mild distress Head exam: PRESENT: normocephalic Eye exam: PRESENT: EOMI Ear exam: PRESENT: normal external ear exam Mouth exam: PRESENT: moist Neck exam: PRESENT: full ROM Cardiovascular exam: PRESENT: RRR Pulses: PRESENT: +2 pedal pulses bilateral GI/Abdominal exam: PRESENT: soft - sabrina's still sl bloody Rectal exam: PRESENT: deferred Gentrourinary exam: PRESENT: indwelling catheter Extremities exam: PRESENT: full ROM, +2 edema Musculoskeletal exam: PRESENT: full ROM Neurological exam: PRESENT: alert, awake, oriented to person, oriented to place Psychiatric exam: PRESENT: appropriate affect Skin exam: PRESENT: dry Results Laboratory Results: 12/07/19 11:20 12/07/19 02:06 12/06/19 12/06/19 12/06/19 14:00 14:00 14:00 WBC 12.0 H RBC 3.90 Hgb 11.7 L Hct 34.1 L MCV 88 MCH 30.0 MCHC 34.2 RDW 16.5 H Plt Count 220 Seg Neutrophils % 63.3 Carbonic Acid HCO3/H2CO3 Ratio ABG pH ABG pCO2 ABG pO2 ABG HCO3 ABG O2 Saturation ABG Base Excess FiO2 Sodium 134.8 L Potassium 4.7 Chloride 103 Carbon Dioxide 23 Anion Gap 9 BUN 26 H Creatinine 0.49 L Est GFR ( Amer) > 60 Glucose 104 Calcium 8.8 Ionized Calcium Vandana Phosphorus Magnesium Total Bilirubin 0.4 AST 19 Alkaline Phosphatase 57 Total Protein 6.3 Albumin 3.6 TSH Blood Type Cancelled Antibody Screen Cancelled 12/06/19 12/06/19 12/06/19 14:42 17:59 21:55 WBC 10.5 RBC 2.98 L Hgb 9.0 L D Hct 25.8 L MCV 87 MCH 30.3 MCHC 34.9 RDW 14.6 H Plt Count 147 L Seg Neutrophils % 77.0 Carbonic Acid 1.21 HCO3/H2CO3 Ratio 11:1 ABG pH 7.15 L* ABG pCO2 40.3 ABG pO2 139.5 H ABG HCO3 13.8 L ABG O2 Saturation 98.0 ABG Base Excess -13.8 FiO2 40% Sodium Potassium Chloride Carbon Dioxide Anion Gap BUN Creatinine Est GFR ( Amer) Glucose Calcium Ionized Calcium Vandana 1.07 L Phosphorus Magnesium Total Bilirubin AST Alkaline Phosphatase Total Protein Albumin TSH Blood Type O POSITIVE Antibody Screen NEGATIVE 12/06/19 12/06/19 12/07/19 21:55 21:55 02:06 WBC 11.3 H RBC 2.26 L Hgb 6.9 L D Hct 20.6 L MCV 91 D MCH 30.7 MCHC 33.7 RDW 14.6 H Plt Count 85 L Seg Neutrophils % Carbonic Acid 1.32 HCO3/H2CO3 Ratio 15:1 ABG pH 7.29 L ABG pCO2 43.9 ABG pO2 65.1 L ABG HCO3 20.4 ABG O2 Saturation 90.4 L ABG Base Excess -6.1 FiO2 30% Sodium 133.8 L Potassium 4.4 Chloride 107 Carbon Dioxide 16 L Anion Gap 11 BUN 24 H Creatinine 0.69 Est GFR ( Amer) > 60 Glucose 297 H Calcium 6.8 L* Ionized Calcium Vandana 1.12 L Phosphorus 5.5 H Magnesium 1.4 L Total Bilirubin 0.2 AST 93 H Alkaline Phosphatase 30 L Total Protein 3.1 L Albumin 1.5 L TSH Blood Type Antibody Screen 12/07/19 12/07/19 12/07/19 02:06 02:06 02:06 WBC 23.1 H D RBC 3.82 Hgb 11.7 L D Hct 33.4 L MCV 88 MCH 30.7 MCHC 35.1 RDW 14.3 H Plt Count 46 L Seg Neutrophils % Carbonic Acid HCO3/H2CO3 Ratio ABG pH ABG pCO2 ABG pO2 ABG HCO3 ABG O2 Saturation ABG Base Excess FiO2 Sodium 135.1 L Potassium 4.8 Chloride 107 Carbon Dioxide 20 L Anion Gap 8 BUN 26 H Creatinine 0.63 Est GFR ( Amer) > 60 Glucose 120 H Calcium 7.4 L Ionized Calcium Vandana Phosphorus Magnesium Total Bilirubin AST Alkaline Phosphatase Total Protein Albumin TSH 1.47 Blood Type Antibody Screen 12/07/19 12/07/19 12/07/19 08:08 10:20 11:20 WBC 18.9 H 19.0 H RBC 3.19 L 3.34 L Hgb 9.8 L 10.3 L Hct 27.3 L 28.5 L MCV 86 85 MCH 30.6 30.8 MCHC 35.8 36.1 H RDW 14.2 H 14.3 H Plt Count 98 L D 135 L Seg Neutrophils % Carbonic Acid 1.25 HCO3/H2CO3 Ratio 17:1 ABG pH 7.33 L ABG pCO2 41.6 ABG pO2 51.9 L ABG HCO3 21.5 ABG O2 Saturation 84.5 L ABG Base Excess -4.1 FiO2 35% Sodium Potassium Chloride Carbon Dioxide Anion Gap BUN Creatinine Est GFR ( Amer) Glucose Calcium Ionized Calcium Vandana Phosphorus Magnesium Total Bilirubin AST Alkaline Phosphatase Total Protein Albumin TSH Blood Type Antibody Screen Impressions: Chest X-Ray 12/06/19 00:00 IMPRESSION: Endotracheal tube and nasogastric tube are in satisfactory position.. There also appears be a left basilar chest drain. Assessment & Plan - Plan Summary Plan Summary: Impression postop day 1 status post exploratory laparotomy with subtotal gastrectomy for control of upper GI bleeding causing hemorrhagic and hypovolemic shock. Patient is done well postoperatively in the intensive care unit she is been resuscitated with packed red blood cells platelets and crystalloids for her he morrhagic and hypovolemic shock. She is now extubated she is answering questions appropriately she is complaining of incisional pain she continues to be volume resuscitated with IV crystalloid. Her blood pressure is now stable and her hemoglobin is relatively stable. She will be continued close monitoring in the ICU for the next 24 to 48 hours. NG tube will remain in place she will remain n.p.o. with NG suction tube feeds will be started possibly tomorrow. Surgery will continue to follow closely
--- NOTE | 2019-12-07 17:32 | PDOC CRITICAL CARE PROG REPORT ---
General Date:: 12/07/19 ICU Day:: 2 Ventilator Day:: 2 Hospital Day:: 2 Resuscitation Status: Full Code Events in the past 12 to 24 Hours:: This 69-year-old obese female was originally seen in consultation at t he request of Dr. Kalia Hernandez for recommendations on further evaluation and management of hypotension and postoperative ventilator management. The patient underwent gastrectomy with esophagojejunal anastomosis for a bleeding gastric ulcer on 12/06/2019. She initially presented to [facility] with hematemesis. She continued to have massive hemorrhage, prompting emergent operative intervention. She has received a total of 6 units PRBC, 1 unit platelets, 6 units FFP and 1 unit cryoprecipitate. She returned from the OR on mechanical ventilatory support. At the time of clinical interview, she remains intubated. She is awake, alert and interactive. She wants the tube out. Case was discussed with Dr. Hernandez, who reports identifying a bleeding gastric artery located at the margin of a previous Curtis-en-Y gastric anastomosis. Review of systems relevant to events:: Cardiovascular: Hypotension Gastrointestinal: Hematemesis Respiratory: Mechanical ventilatory support (postoperative) Hematologic: Anemia Reason for ICU Addmission:: s/p gastrectomy with esophagojejnal anastamosis, on mechanically assisted ventilator, hypotension due to blood loss - Medications: Medications reviewed and adjusted accordingly: Yes Vasopressors:: Vasopressin Sedation:: Fentanyl, Versed Physical Exam Vital Signs: Temp Pulse Resp BP Pulse Ox 97.9 F 106 H 15 136/77 H 90 L 12/07/19 10:00 12/07/19 10:00 12/07/19 10:31 12/07/19 10:31 12/07/19 10:31 Intake & Output 12/06/19 12/07/19 12/08/19 06:59 06:59 06:59 [place] 70205 1383 Output Total 160 615 Balance 9863 768 Weight 103.1 kg Weight/Height Weight 103.1 kg Height 1.73 m General appearance: PRESENT: no acute distress, obese, well-developed Head exam: PRESENT: atraumatic, normocephalic Eye exam: PRESENT: conjunctiva pink, EOMI, PERRLA. ABSENT: conjunctival injection, nystagmus Mouth exam: PRESENT: moist, neck supple. ABSENT: dry mucosa Neck exam: ABSENT: carotid bruit, JVD, tracheal deviation Respiratory exam: PRESENT: clear to auscultation shwetha. ABSENT: rales, rhonchi Cardiovascular exam: PRESENT: RRR, tachycardia Pulses: PRESENT: normal carotid pulses, normal radial pulses, normal dorsalis pedis pul GI/Abdominal exam: PRESENT: diminished bowel sounds, guarding, soft, tenderness - LLQ>RLQ, other - Midline laparotomy incision bandaged. 2 BAN drains intact with modest bloody output. Jejunostomy tube in situ.. ABSENT: distended, firm, rebound, rigid Extremities exam: ABSENT: calf tenderness, clubbing, pedal edema Musculoskeletal exam: PRESENT: normal inspection. ABSENT: deformity, tenderness Neurological exam: PRESENT: alert, awake, CN II-XII grossly intact. ABSENT: motor sensory deficit Skin exam: PRESENT: dry, intact, normal color. ABSENT: pallor Tubes/Lines: PRESENT: Endotracheal Tube, Central Line, Arterial Catheter, Nasogastic Tube, Other - Jejunostomy tube Laboratory/Radiographs Laboratory Results: 12/07/19 08:08 12/07/19 02:06 12/06/19 12/06/19 12/06/19 14:00 14:00 14:00 WBC 12.0 H RBC 3.90 Hgb 11.7 L Hct 34.1 L MCV 88 MCH 30.0 MCHC 34.2 RDW 16.5 H Plt Count 220 Seg Neutrophils % 63.3 Carbonic Acid HCO3/H2CO3 Ratio ABG pH ABG pCO2 ABG pO2 ABG HCO3 ABG O2 Saturation ABG Base Excess FiO2 Sodium 134.8 L Potassium 4.7 Chloride 103 Carbon Dioxide 23 Anion Gap 9 BUN 26 H Creatinine 0.49 L Est GFR ( Amer) > 60 Glucose 104 Calcium 8.8 Ionized Calcium Vandana Phosphorus Magnesium Total Bilirubin 0.4 AST 19 Alkaline Phosphatase 57 Total Protein 6.3 Albumin 3.6 TSH Blood Type Cancelled Antibody Screen Cancelled 12/06/19 12/06/19 12/06/19 14:42 17:59 21:55 WBC 10.5 RBC 2.98 L Hgb 9.0 L D Hct 25.8 L MCV 87 MCH 30.3 MCHC 34.9 RDW 14.6 H Plt Count 147 L Seg Neutrophils % 77.0 Carbonic Acid 1.21 HCO3/H2CO3 Ratio 11:1 ABG pH 7.15 L* ABG pCO2 40.3 ABG pO2 139.5 H ABG HCO3 13.8 L ABG O2 Saturation 98.0 ABG Base Excess -13.8 FiO2 40% Sodium Potassium Chloride Carbon Dioxide Anion Gap BUN Creatinine Est GFR ( Amer) Glucose Calcium Ionized Calcium Vandana 1.07 L Phosphorus Magnesium Total Bilirubin AST Alkaline Phosphatase Total Protein Albumin TSH Blood Type O POSITIVE Antibody Screen NEGATIVE 12/06/19 12/06/19 12/07/19 21:55 21:55 02:06 WBC 11.3 H RBC 2.26 L Hgb 6.9 L D Hct 20.6 L MCV 91 D MCH 30.7 MCHC 33.7 RDW 14.6 H Plt Count 85 L Seg Neutrophils % Carbonic Acid 1.32 HCO3/H2CO3 Ratio 15:1 ABG pH 7.29 L ABG pCO2 43.9 ABG pO2 65.1 L ABG HCO3 20.4 ABG O2 Saturation 90.4 L ABG Base Excess -6.1 FiO2 30% Sodium 133.8 L Potassium 4.4 Chloride 107 Carbon Dioxide 16 L Anion Gap 11 BUN 24 H Creatinine 0.69 Est GFR ( Amer) > 60 Glucose 297 H Calcium 6.8 L* Ionized Calcium Vandana 1.12 L Phosphorus 5.5 H Magnesium 1.4 L Total Bilirubin 0.2 AST 93 H Alkaline Phosphatase 30 L Total Protein 3.1 L Albumin 1.5 L TSH Blood Type Antibody Screen 12/07/19 12/07/19 12/07/19 02:06 02:06 02:06 WBC 23.1 H D RBC 3.82 Hgb 11.7 L D Hct 33.4 L MCV 88 MCH 30.7 MCHC 35.1 RDW 14.3 H Plt Count 46 L Seg Neutrophils % Carbonic Acid HCO3/H2CO3 Ratio ABG pH ABG pCO2 ABG pO2 ABG HCO3 ABG O2 Saturation ABG Base Excess FiO2 Sodium 135.1 L Potassium 4.8 Chloride 107 Carbon Dioxide 20 L Anion Gap 8 BUN 26 H Creatinine 0.63 Est GFR ( Amer) > 60 Glucose 120 H Calcium 7.4 L Ionized Calcium Vandana Phosphorus Magnesium Total Bilirubin AST Alkaline Phosphatase Total Protein Albumin TSH 1.47 Blood Type Antibody Screen 12/07/19 12/07/19 08:08 10:20 WBC 18.9 H RBC 3.19 L Hgb 9.8 L Hct 27.3 L MCV 86 MCH 30.6 MCHC 35.8 RDW 14.2 H Plt Count 98 L D Seg Neutrophils % Carbonic Acid 1.25 HCO3/H2CO3 Ratio 17:1 ABG pH 7.33 L ABG pCO2 41.6 ABG pO2 51.9 L ABG HCO3 21.5 ABG O2 Saturation 84.5 L ABG Base Excess -4.1 FiO2 35% Sodium Potassium Chloride Carbon Dioxide Anion Gap BUN Creatinine Est GFR ( Amer) Glucose Calcium Ionized Calcium Vandana Phosphorus Magnesium Total Bilirubin AST Alkaline Phosphatase Total Protein Albumin TSH Blood Type Antibody Screen Impressions: Chest X-Ray 12/06/19 00:00 IMPRESSION: Endotracheal tube and nasogastric tube are in satisfactory position.. There also appears be a left basilar chest drain. All labs, radiographs, diagnostic studies and EKGs were personally reviewed: Yes In addition, reports of radiographic and diagnostic studies were read: Yes Assessment and Plan - Diagnosis (1) Hemorrhagic shock Is this a current diagnosis for this admission?: Yes Plan: Improving with IV fluids and transfusion of blood products. (2) Upper GI hemorrhage Is this a current diagnosis for this admission?: Yes Plan: Monitor BAN drain output. Status post gastrectomy with esophagojejunal anastomosis. (3) Acute postoperative pain Is this a current diagnosis for this admission?: Yes Plan: Postoperative pain control will need to be optimized for this patient who is undergone open laparotomy. Will use morphine 2 mg IV q 2 hr PRN and fentnayl 100 mcg IV PRN for breakthrough pain. On perioperative Ancef/metronidazole. (4) Endotracheally intubated Is this a current diagnosis for this admission?: Yes Plan: Spontaneous breathing trial today. I anticipate that she will extubate supplemental oxygen. Incentive spirometry. (5) Acute blood loss anemia Is this a current diagnosis for this admission?: Yes Plan: Monitor H&H. (6) Marginal ulcer Is this a current diagnosis for this admission?: Yes (7) Hypotension due to blood loss Is this a current diagnosis for this admission?: Yes Critical Time Critical Time (minutes): 90 Level of Care: ICU -: 1. The care of a critical patient is a dynamic process. This note is a industrial relations representative synopsis but static in nature. The timeframe for treatments given in order is not necessarily the actual time these treatments may have been done. 2. This patient requires critical care secondary to ongoing requirements for therapy not offered or safe outside the critical care environment. Transfer to a lower level of care will result in altered life or limb morbidity and mortality. 3. Multidisciplinary rounds completed. 4. ABCDE bundle addressed.
[2019-12-07 20:57] LABS: HEMATOCRIT 26.5 % (36.0-47.0); HEMOGLOBIN 9.6 g/dL (12.0-15.5); MEAN CORPUSCULAR HGB CONC 36.3 g/dL (32.0-36.0); MEAN CORPUSCULAR VOLUME 86 fl (80-97); PLATELET COUNT 130 10^3/uL (150-450); RED CELL DISTRIBUTION WIDTH 14.6 % (11.5-14.0); WHITE BLOOD COUNT 19.4 10^3/uL (4.0-10.5)
[2019-12-08] MEDS ORDERED: NORMAL SALINE INJ/PF 0.9% 10 ML SDV IV PRN (00:22)
[2019-12-08] MEDS: METRONIDAZOLE 500 MG/NS RTU 500 MG/100 ML RTUPB IV SCH ×4 (01:08→18:11)
[2019-12-08] MEDS: MORPHINE SULFATE 10 MG/ML INJ IV PRN ×7 (01:43→22:04)
[2019-12-08 03:43] LABS: HEMATOCRIT 25.3 % (36.0-47.0); HEMOGLOBIN 9.2 g/dL (12.0-15.5); MEAN CORPUSCULAR HGB CONC 36.2 g/dL (32.0-36.0); MEAN CORPUSCULAR VOLUME 86 fl (80-97); PLATELET COUNT 132 10^3/uL (150-450); RED BLOOD COUNT 2.96 10^6/uL (3.72-5.28); RED CELL DISTRIBUTION WIDTH 14.4 % (11.5-14.0); WHITE BLOOD COUNT 19.1 10^3/uL (4.0-10.5)
[2019-12-08 03:48] LABS: ANION GAP 5 (5-19); BLOOD UREA NITROGEN 23 mg/dL (7-20); CARBON DIOXIDE 25 mmol/L (22-30); CHLORIDE 105 mmol/L (98-107); GLUCOSE 105 mg/dL (75-110); PHOSPHORUS 2.8 mg/dL (2.5-4.5); POTASSIUM 3.9 mmol/L (3.6-5.0)
[2019-12-08] MEDS: CEFAZOLIN 1 GM/D5W RTU 1 GM/50 ML RTUPB IV SCH ×3 (06:31→21:59)
--- NOTE | 2019-12-08 07:44 | PDOC PROGRESS REPORT ---
Subjective Progress Note for:: 12/08/19 Subjective:: awake, feels ok Reason For Visit: UPPER GI BLEED Physical Exam Vital Signs: Temp Pulse Resp BP Pulse Ox 98 F 117 H 17 116/66 94 12/08/19 03:39 12/07/19 22:00 12/08/19 06:45 12/08/19 06:32 12/08/19 06:45 Intake & Output 12/07/19 12/08/19 12/09/19 06:59 06:59 06:59 Intake Total 52187 3483 Output Total 1605 2635 Balance 9863 848 Weight 103.1 kg 107.9 kg General appearance: PRESENT: no acute distress Head exam: PRESENT: normocephalic Eye exam: PRESENT: EOMI Mouth exam: PRESENT: moist Teeth exam: PRESENT: poor dentation Neck exam: PRESENT: full ROM Respiratory exam: PRESENT: clear to auscultation shwetha Cardiovascular exam: PRESENT: RRR, tachycardia Pulses: PRESENT: normal radial pulses, normal femoral pulses Breast: PRESENT: Normal GI/Abdominal exam: PRESENT: soft - sabrina's serous Rectal exam: PRESENT: deferred Extremities exam: PRESENT: full ROM Musculoskeletal exam: PRESENT: full ROM Neurological exam: PRESENT: alert, awake, oriented to person, oriented to place Psychiatric exam: PRESENT: appropriate affect Skin exam: PRESENT: dry Results Laboratory Results: 12/08/19 03:32 12/08/19 03:21 12/06/19 12/07/19 12/07/19 14:42 08:08 10:20 WBC 18.9 H RBC 3.19 L Hgb 9.8 L Hct 27.3 L MCV 86 MCH 30.6 MCHC 35.8 RDW 14.2 H Plt Count 98 L D Carbonic Acid 1.25 HCO3/H2CO3 Ratio 17:1 ABG pH 7.33 L ABG pCO2 41.6 ABG pO2 51.9 L ABG HCO3 21.5 ABG O2 Saturation 84.5 L ABG Base Excess -4.1 FiO2 35% Sodium Potassium Chloride Carbon Dioxide Anion Gap BUN Creatinine Est GFR ( Amer) Glucose Calcium Phosphorus Magnesium Blood Type O POSITIVE Antibody Screen NEGATIVE 12/07/19 12/07/19 12/08/19 11:20 20:36 03:21 WBC 19.0 H 19.4 H RBC 3.34 L 3.10 L Hgb 10.3 L 9.6 L Hct 28.5 L 26.5 L MCV 85 86 MCH 30.8 31.0 MCHC 36.1 H 36.3 H RDW 14.3 H 14.6 H Plt Count 135 L 130 L Carbonic Acid HCO3/H2CO3 Ratio ABG pH ABG pCO2 ABG pO2 ABG HCO3 ABG O2 Saturation ABG Base Excess FiO2 Sodium 134.8 L Potassium 3.9 Chloride 105 Carbon Dioxide 25 Anion Gap 5 BUN 23 H Creatinine 0.45 L Est GFR ( Amer) > 60 Glucose 105 Calcium 8.0 L Phosphorus 2.8 Magnesium 2.1 Blood Type Antibody Screen 12/08/19 03:32 WBC 19.1 H RBC 2.96 L Hgb 9.2 L Hct 25.3 L MCV 86 MCH 31.0 MCHC 36.2 H RDW 14.4 H Plt Count 132 L Carbonic Acid HCO3/H2CO3 Ratio ABG pH ABG pCO2 ABG pO2 ABG HCO3 ABG O2 Saturation ABG Base Excess FiO2 Sodium Potassium Chloride Carbon Dioxide Anion Gap BUN Creatinine Est GFR ( Amer) Glucose Calcium Phosphorus Magnesium Blood Type Antibody Screen Assessment & Plan - Plan Summary Plan Summary: pt remains stable overnight hct stable overnight no further bleeding from sabrina's abd soft, incision clean sl tachy this am plan- out of bed todayt ice chips incentive spirometer start tube feeds. cont icu monitioring
[2019-12-08] MEDS: RINGERS SOLUTION,LACTATED 1,000 ML IV PRN ×3 (07:55→21:21)
[2019-12-08] MEDS ORDERED: SODIUM PHOS,M-BASIC-D-BASIC 40 MMOL in NORMAL SALINE 500 ML IV ONE (08:00)
--- NOTE | 2019-12-08 08:35 | RADIOLOGY REPORT (SQ) ---
EXAM DESCRIPTION: CHEST SINGLE VIEW IMAGES COMPLETED DATE/TIME: 12/08/2019 6:23 am REASON FOR STUDY: dyspnea COMPARISON: 12/06/2019 EXAM PARAMETERS: NUMBER OF VIEWS: One view. TECHNIQUE: Single frontal radiographic view of the chest acquired. RADIATION DOSE: NA LIMITATIONS: None. FINDINGS: LUNGS AND PLEURA: Low lung volumes with bibasilar opacities, likely atelectasis. No large effusion. No pneumothorax. MEDIASTINUM AND HILAR STRUCTURES: No masses. Contour normal. HEART AND VASCULAR STRUCTURES: Stable. BONES: No acute findings. HARDWARE: Extubation. Enteric tube tip overlies gastric body. OTHER: No other significant finding. IMPRESSION: Extubation. Low lung volumes with bibasilar opacities, likely atelectasis. TECHNICAL DOCUMENTATION: JOB ID: [id number] 2010 [employer]- All Rights Reserved Reading location - IP/workstation name: [email or web address]
[2019-12-08] MEDS: LEVOTHYROXINE SODIUM INJ/PF 0.1 MG SDV IV SCH (09:52)
--- NOTE | 2019-12-08 12:11 | PDOC CRITICAL CARE PROG REPORT ---
General Date:: 12/08/19 ICU Day:: 3 Hospital Day:: 3 Resuscitation Status: Full Code Events in the past 12 to 24 Hours:: This 69-year-old obese female was originally seen in consultation at the request of Dr. Kalia Hernandez for recommendations on further evaluation and management of hypotension and postoperative ventilator management. The patient underwent gastrectomy with esophagojejunal anastomosis for a bleeding gastric ulcer on 12/06/2019. She initially presented to [facility] with hematemesis. She continued to have massive hemorrhage, prompting emergent operative intervention. She has received a total of 6 units PRBC, 1 unit platelets, 6 units FFP and 1 unit cryoprecipitate. She returned from the OR on mechanical ventilatory support. At the time of clinical interview, she remains intubated. She is awake, alert and interactive. She wants the tube out. Case was discussed with Dr. Hernandez, who reports identifying a bleeding gastric artery located at the margin of a previous Curtis-en-Y gastric anastomosis. 12/07: Patient was successfully extubated to nasal cannula yesterday. Cooperating diligently with incentive spirometry. Complains of diffuse back pain ("uncomfortable in bed"). No ecchymoses. Reports frequent belching but no flatus. Wants to know if Trinh catheter can be removed. Not requiring vasopressors for blood pressure support. Reports satisfactory postoperative pain control on IV Tylenol and morphine. General surgery recommendations to start tube feeds noted. Review of systems relevant to events:: Cardiovascular: Hypotension Gastrointestinal: Hematemesis Respiratory: Mechanical ventilatory support (postoperative) Hematologic: Anemia Reason for ICU Addmission:: s/p gastrectomy with esophagojejnal anastamosis, on mechanically assisted ventilator, hypotension due to blood loss - Medications: Medications reviewed and adjusted accordingly: Yes Vasopressors:: None Sedation:: Not applicable Physical Exam Vital Signs: Temp Pulse Resp BP Pulse Ox 98.1 F 119 H 27 H 152/65 H 94 12/08/19 10:00 12/08/19 10:00 12/08/19 10:02 12/08/19 10:02 12/08/19 10:02 Intake & Output 12/07/19 12/08/19 12/09/19 06:59 06:59 06:59 Intake Total 8634603 6463 Output Total 1605 2635 360 Balance 9863 1848 -360 Weight 103.1 kg 107.9 kg Weight/Height Weight 107.9 kg Height 1.73 m General appearance: PRESENT: no acute distress, morbidly obese, well-developed, well-nourished Head exam: PRESENT: atraumatic, normocephalic Eye exam: PRESENT: conjunctiva pink, EOMI, PERRLA. ABSENT: scleral icterus Mouth exam: PRESENT: dry mucosa, tongue midline Neck exam: ABSENT: carotid bruit, JVD, lymphadenopathy, thyromegaly Respiratory exam: PRESENT: clear to auscultation shwetha. ABSENT: rales, rhonchi, wheezes Cardiovascular exam: PRESENT: RRR. ABSENT: diastolic murmur, rubs, systolic murmur GI/Abdominal exam: PRESENT: hypoactive bowel sounds, soft, tenderness. ABSENT: distended, guarding, mass, organolmegaly, rebound Extremities exam: PRESENT: pedal edema. ABSENT: calf tenderness, clubbing Musculoskeletal exam: PRESENT: normal inspection. ABSENT: deformity Neurological exam: PRESENT: alert, awake, oriented to person, oriented to place, oriented to time, oriented to situation, CN II-XII grossly intact. ABSENT: motor sensory deficit Tubes/Lines: PRESENT: Central Line, Arterial Catheter - 2 BAN drains, jejunostomy tube, Other Laboratory/Radiographs Laboratory Results: 12/08/19 03:32 12/08/19 03:21 12/06/19 12/07/19 12/08/19 14:42 20:36 03:21 WBC 19.4 H RBC 3.10 L Hgb 9.6 L Hct 26.5 L MCV 86 MCH 31.0 MCHC 36.3 H RDW 14.6 H Plt Count 130 L Sodium 134.8 L Potassium 3.9 Chloride 105 Carbon Dioxide 25 Anion Gap 5 BUN 23 H Creatinine 0.45 L Est GFR ( Amer) > 60 Glucose 105 Calcium 8.0 L Phosphorus 2.8 Magnesium 2.1 Blood Type O POSITIVE Antibody Screen NEGATIVE 12/08/19 03:32 WBC 19.1 H RBC 2.96 L Hgb 9.2 L Hct 25.3 L MCV 86 MCH 31.0 MCHC 36.2 H RDW 14.4 H Plt Count 132 L Sodium Potassium Chloride Carbon Dioxide Anion Gap BUN Creatinine Est GFR ( Amer) Glucose Calcium Phosphorus Magnesium Blood Type Antibody Screen Impressions: Chest X-Ray 12/08/19 05:00 IMPRESSION: Extubation. Low lung volumes with bibasilar opacities, likely atelectasis. All labs, radiographs, diagnostic studies and EKGs were personally reviewed: Yes In addition, reports of radiographic and diagnostic studies were read: Yes Assessment and Plan - Diagnosis (1) Chest pain Qualifiers: Chest pain type: precordial pain Qualified Code(s): R07.2 - Precordial pain Is this a current diagnosis for this admission?: Yes Plan: A be related to anxiety. Restart sertraline (home medication). Check troponin. Check 12-lead EKG. (2) Hemorrhagic shock Is this a current diagnosis for this admission?: Yes Plan: Resolved (3) Upper GI hemorrhage Is this a current diagnosis for this admission?: Yes Plan: Monitor BAN drain output. Status post gastrectomy with esophagojejunal anastomosis. (4) Acute postoperative pain Is this a current diagnosis for this admission?: Yes Plan: Well controlled with IV Tylenol and morphine as needed. Continue Ancef/Flagyl. I will defer to general surgery service regarding timing of discontinuation of antibiotics. (5) Acute blood loss anemia Is this a current diagnosis for this admission?: Yes Plan: Monitor H&H. Hemoglobin 9.6>9.2 (6) Marginal ulcer Is this a current diagnosis for this admission?: Yes (7) Hypotension due to blood loss Is this a current diagnosis for this admission?: Yes (8) Epilepsy Qualifiers: Epilepsy type: unspecified Intractability: not intractable Status epilepticus: without status epilepticus Qualified Code(s): G40.909 - Epilepsy, unspecified, not intractable, without status epilepticus Is this a current diagnosis for this admission?: Yes Plan: Restart Depakote (takes Depakote ER 1500 mg p.o. nightly at home). (9) Hypothyroidism Qualifiers: Hypothyroidism type: unspecified Qualified Code(s): E03.9 - Hypothyroidism, unspecified Is this a current diagnosis for this admission?: Yes Plan: Continue Synthroid Plan Summary: Start tube feeds, as recommended by general surgery. We will restart Depakote via jejunostomy tube. PT/OT consult. Should be able to transfer out of ICU soon. Critical Time Critical Time (minutes): 60 Level of Care: ICU -: 1. The care of a critical patient is a dynamic process. This note is a chemical sales representative synopsis but static in nature. The timeframe for treatments given in order is not necessarily the actual time these treatments may have been done. 2. This patient requires critical care secondary to ongoing requirements for therapy not offered or safe outside the critical care environment. Transfer to a lower level of care will result in altered life or limb morbidity and mortality. 3. Multidisciplinary rounds completed. 4. ABCDE bundle addressed.
[2019-12-08] MEDS ORDERED: SERTRALINE HCL 50 MG TABLET JT SCH (12:15)
[2019-12-08] MEDS ORDERED: VALPROATE SODIUM SYRUP 250 MG/5 ML UDCUP PO SCH (12:15)
[2019-12-08] MEDS: SERTRALINE HCL 50 MG TABLET JT SCH (14:02)
[2019-12-08] MEDS: VALPROATE SODIUM SYRUP 250 MG/5 ML UDCUP JT SCH ×2 (14:04→21:07)
--- NOTE | 2019-12-08 19:53 | EKG REPORT ---
SEVERITY:- ABNORMAL ECG - SINUS TACHYCARDIA LOW VOLTAGE IN FRONTAL LEADS CONSIDER INFERIOR INFARCT LA ENLARGEMENT : Confirmed by: Eugene Weiner MD 08-Dec-2019 19:52:50
[2019-12-08] MEDS: FENTANYL CITRATE INJ/PF 100 MCG/2 ML AMPUL IV PRN (21:09)
[2019-12-08] MEDS ORDERED: METHOCARBAMOL INJ/PF 1000 MG/10 ML SDV IV SCH (23:00)
[2019-12-09] MEDS: METRONIDAZOLE 500 MG/NS RTU 500 MG/100 ML RTUPB IV SCH ×4 (00:34→20:08)
[2019-12-09] MEDS: MORPHINE SULFATE 10 MG/ML INJ IV PRN ×2 (00:34→02:26)
[2019-12-09] MEDS ORDERED: METHOCARBAMOL INJ/PF 1000 MG/10 ML SDV ONE (01:43)
[2019-12-09] MEDS: FENTANYL CITRATE INJ/PF 100 MCG/2 ML AMPUL IV PRN (03:07)
[2019-12-09 03:25] LABS: HEMATOCRIT 24.1 % (36.0-47.0); HEMOGLOBIN 8.6 g/dL (12.0-15.5); MEAN CORPUSCULAR HEMOGLOBIN 31.2 pg (27.0-33.4); MEAN CORPUSCULAR HGB CONC 35.5 g/dL (32.0-36.0); MEAN CORPUSCULAR VOLUME 88 fl (80-97); PLATELET COUNT 160 10^3/uL (150-450); RED BLOOD COUNT 2.74 10^6/uL (3.72-5.28); RED CELL DISTRIBUTION WIDTH 14.6 % (11.5-14.0); WHITE BLOOD COUNT 21.9 10^3/uL (4.0-10.5)
[2019-12-09 03:41] LABS: BLOOD UREA NITROGEN 15 mg/dL (7-20); GLUCOSE 96 mg/dL (75-110); PHOSPHORUS 2.4 mg/dL (2.5-4.5); POTASSIUM 3.7 mmol/L (3.6-5.0)
[2019-12-09 03:42] LABS: ABSOLUTE LYMPHOCYTES# (MANUAL) 0.7 10^3/uL (0.5-4.7); ABSOLUTE MONOCYTES # (MANUAL) 2.2 10^3/uL (0.1-1.4); BASOPHILS % (MANUAL) 0 % (0-2); EOSINOPHILS % (MANUAL) 0 % (0-6); LYMPHOCYTES % (MANUAL) 3 % (13-45); MONOCYTES % (MANUAL) 10 % (3-13); PLATELET COMMENT ADEQUATE; RBC MORPHOLOGY COMMENT NORMO-CYTIC/CHROMIC; SEGMENTED NEUTROPHILS % (MAN) 87 % (42-78); TOTAL CELLS COUNTED 100
[2019-12-09 03:46] LABS: CARBON DIOXIDE 28 mmol/L (22-30); CHLORIDE 105 mmol/L (98-107)
[2019-12-09 03:49] LABS: ANION GAP 4 (5-19)
[2019-12-09] MEDS: HYDROCOD/ACETAMIN 7.5-325 MG/15 ML ORAL SOLN UDCUP JT PRN ×3 (03:51→21:22)
[2019-12-09] MEDS: CEFAZOLIN 1 GM/D5W RTU 1 GM/50 ML RTUPB IV SCH ×3 (05:53→21:30)
[2019-12-09] MEDS: VALPROATE SODIUM SYRUP 250 MG/5 ML UDCUP JT SCH ×3 (05:53→21:21)
--- NOTE | 2019-12-09 09:22 | PDOC PROGRESS REPORT ---
Subjective Progress Note for:: 12/09/19 Subjective:: awake, alert, comfortable min c/o incisional pain passed stool Reason For Visit: UPPER GI BLEED Physical Exam Vital Signs: Temp Pulse Resp BP Pulse Ox 97.9 F 124 H 20 141/74 H 95 12/09/19 03:46 12/08/19 22:00 12/09/19 06:04 12/09/19 06:04 12/09/19 06:04 Intake & Output 12/08/19 12/09/19 12/10/19 06:59 06:59 06:59 Intake Total 4483 912 Output Total 2635 1055 Balance 1848 -143 Weight 107.9 kg 110.3 kg General appearance: PRESENT: no acute distress Head exam: PRESENT: normocephalic Eye exam: PRESENT: EOMI Ear exam: PRESENT: normal external ear exam Mouth exam: PRESENT: moist Teeth exam: PRESENT: poor dentation Neck exam: PRESENT: full ROM Respiratory exam: PRESENT: decreased breath sounds Cardiovascular exam: PRESENT: RRR Pulses: PRESENT: +2 pedal pulses bilateral Vascular exam: PRESENT: normal capillary refill Breast: PRESENT: Normal GI/Abdominal exam: PRESENT: diminished bowel sounds, soft Rectal exam: PRESENT: deferred Gentrourinary exam: PRESENT: indwelling catheter Extremities exam: PRESENT: full ROM Neurological exam: PRESENT: alert, awake, oriented to person, oriented to place Psychiatric exam: PRESENT: appropriate affect Skin exam: PRESENT: dry Results Laboratory Results: 12/09/19 03:15 12/09/19 03:15 12/09/19 12/09/19 03:15 03:15 WBC 21.9 H RBC 2.74 L Hgb 8.6 L Hct 24.1 L MCV 88 MCH 31.2 MCHC 35.5 RDW 14.6 H Plt Count 160 Seg Neutrophils % Not Reportable Sodium 136.7 L Potassium 3.7 Chloride 105 Carbon Dioxide 28 Anion Gap 4 L BUN 15 Creatinine 0.42 L Est GFR ( Amer) > 60 Glucose 96 Calcium 8.0 L Phosphorus 2.4 L Magnesium 2.0 12/08/19 12:18 Troponin I < 0.012 Impressions: Chest X-Ray 12/08/19 05:00 IMPRESSION: Extubation. Low lung volumes with bibasilar opacities, likely atelectasis. Assessment & Plan - Plan Summary Plan Summary: s/p completion gastrectomy (after old gastric bypass) for massive gi bleed pod 2 extubated still sl tachy gerneralized edema after multiple blood txn now passing some stool tube feeds started yesterday appreciated input and care of Dr Pagan. discused with him this morning consider diuresis iwth albumin. surgery will cont to follow.
[2019-12-09] MEDS: METHOCARBAMOL INJ/PF 1000 MG/10 ML SDV IV SCH ×2 (09:23→17:49)
[2019-12-09] MEDS: LEVOTHYROXINE SODIUM INJ/PF 0.1 MG SDV IV SCH (09:23)
[2019-12-09] MEDS: SERTRALINE HCL 50 MG TABLET JT SCH (09:24)
[2019-12-09] MEDS: ALBUMIN HUMAN 12.5 GM/50 ML RTUINJ IV SCH ×2 (11:30→12:00)
[2019-12-09] MEDS: DEXMEDETOMIDINE IN 0.9 % NACL 400 MCG/100 ML RTUPB IV PRN (11:48)
[2019-12-09] MEDS ORDERED: FUROSEMIDE INJ/PF 20 MG/2 ML SDV IV ONE (12:30)
--- NOTE | 2019-12-09 12:57 | EKG REPORT ---
SEVERITY:- ABNORMAL ECG - SINUS TACHYCARDIA OLD INFERIOR PR : Confirmed by: Eugene Weiner MD 09-Dec-2019 12:56:35
[2019-12-09] MEDS ORDERED: ALBUTEROL SULFATE 0.083% NEB 2.5 MG/3 ML AMPUL NEB ONE (14:07)
--- NOTE | 2019-12-09 14:19 | PDOC CRITICAL CARE PROG REPORT ---
General Date:: 12/09/19 ICU Day:: 4 Hospital Day:: 4 Resuscitation Status: Full Code Events in the past 12 to 24 Hours:: This 69-year-old obese female was originally seen in consultation at the request of Dr. Kalia Hernandez for recommendations on further evaluation and management of hypotension and postoperative ventilator management. The patient underwent gastrectomy with esophagojejunal anastomosis for a bleeding gastric ulcer on 12/06/2019. She initially presented to [facility] with hematemesis. She continued to have massive hemorrhage, prompting emergent operative intervention. She has received a total of 6 units PRBC, 1 unit platelets, 6 units FFP and 1 unit cryoprecipitate. She returned from the OR on mechanical ventilatory support. At the time of clinical interview, she remains intubated. She is awake, alert and interactive. She wants the tube out. Case was discussed with Dr. Hernandez, who reports identifying a bleeding gastric artery located at the margin of a previous Curtis-en-Y gastric anastomosis. 12/07: Patient was successfully extubated to nasal cannula yesterday. Cooperating diligently with incentive spirometry. Complains of diffuse back pain ("uncomfortable in bed"). No ecchymoses. Reports frequent belching but no flatus. Wants to know if Trinh catheter can be removed. Not requiring vasopressors for blood pressure support. Reports satisfactory postoperative pain control on IV Tylenol and morphine. General surgery recommendations to start tube feeds noted. 12/08: Case discussed with Dr. Hernandez. The patient was able to tolerate being out of bed to chair for several hours yesterday. Overall, in good spirits; however, does seem to have periods of anxiety. She has remained tachycardic subsequent to surgery. She does occasionally endorse discomfort but denies unsatisfactory postop pain control. On the other hand, it is noted that she takes Vyvanse and Adderall at home and has missed several doses. Her other complaint is that she is "puffy". Although she does diligently attempt incentive spirometry, she is only able to pull about 200 mL. At present, she seems to have satisfactory oxygen saturation on 35% face tent. Review of systems relevant to events:: Cardiovascular: Hypotension Gastrointestinal: Hematemesis Respiratory: Mechanical ventilatory support (postoperative) Hematologic: Anemia Reason for ICU Addmission:: s/p gastrectomy with esophagojejnal anastamosis, on mechanically assisted ventilator, hypotension due to blood loss - Medications: Medications reviewed and adjusted accordingly: Yes Vasopressors:: None Sedation:: Not applicable Physical Exam Vital Signs: Temp Pulse Resp BP Pulse Ox 98.9 F 115 H 19 146/68 H 94 12/09/19 12:00 12/09/19 12:00 12/09/19 13:45 12/09/19 13:03 12/09/19 13:45 Intake & Output 12/08/19 12/09/19 12/10/19 06:59 06:59 06:59 Intake Total 4483 912 125 Output Total 2635 1055 200 Balance 1848 -143 -75 Weight 107.9 kg 110.3 kg Weight/Height Weight 110.3 kg Height 1.73 m General appearance: PRESENT: no acute distress, well-developed, well-nourished Head exam: PRESENT: atraumatic, normocephalic Eye exam: PRESENT: conjunctiva pink, EOMI, PERRLA. ABSENT: scleral icterus Mouth exam: PRESENT: moist, tongue midline Neck exam: ABSENT: carotid bruit, JVD, lymphadenopathy, thyromegaly Respiratory exam: PRESENT: crackles - Basilar crackles, decreased breath sounds - Shallow respirations. ABSENT: rhonchi, wheezes Cardiovascular exam: PRESENT: RRR, tachycardia. ABSENT: diastolic murmur, rubs, systolic murmur Pulses: PRESENT: normal dorsalis pedis pul GI/Abdominal exam: PRESENT: hypoactive bowel sounds, soft, tenderness, other - Midline laparotomy incision clean, dry, intact. ABSENT: distended, guarding, mass, organolmegaly, rebound Extremities exam: PRESENT: full ROM, pedal edema. ABSENT: calf tenderness, clubbing Musculoskeletal exam: PRESENT: normal inspection. ABSENT: deformity, tenderness Neurological exam: PRESENT: alert, awake, oriented to person, oriented to place, oriented to time, oriented to situation, CN II-XII grossly intact. ABSENT: motor sensory deficit Tubes/Lines: PRESENT: Other - J-tube. 2 BAN drains. Laboratory/Radiographs Laboratory Results: 12/09/19 03:15 12/09/19 03:15 12/09/19 12/09/19 03:15 03:15 WBC 21.9 H RBC 2.74 L Hgb 8.6 L Hct 24.1 L MCV 88 MCH 31.2 MCHC 35.5 RDW 14.6 H Plt Count 160 Seg Neutrophils % Not Reportable Sodium 136.7 L Potassium 3.7 Chloride 105 Carbon Dioxide 28 Anion Gap 4 L BUN 15 Creatinine 0.42 L Est GFR ( Amer) > 60 Glucose 96 Calcium 8.0 L Phosphorus 2.4 L Magnesium 2.0 12/08/19 12/09/19 12:18 12:10 Troponin I < 0.012 < 0.012 Impressions: Chest X-Ray 12/08/19 05:00 IMPRESSION: Extubation. Low lung volumes with bibasilar opacities, likely atelectasis. All labs, radiographs, diagnostic studies and EKGs were personally reviewed: Yes In addition, reports of radiographic and diagnostic studies were read: Yes Assessment and Plan - Diagnosis (1) Chest pain Qualifiers: Chest pain type: precordial pain Qualified Code(s): R07.2 - Precordial pain Is this a current diagnosis for this admission?: Yes Plan: I doubt that this is of cardiac etiology. Nonetheless, will check troponin and 12-lead EKG for completeness. She was restarted on sertraline yesterday. Home medications also include V yvanse and Adderall. As these medications are not available on our formulary, I will attempt to use low-dose Precedex until she is allowed to take p.o. medications (patient's personal supply). . (2) Hemorrhagic shock Is this a current diagnosis for this admission?: Yes Plan: Resolved (3) Upper GI hemorrhage Is this a current diagnosis for this admission?: Yes (4) Acute postoperative pain Is this a current diagnosis for this admission?: Yes Plan: Well controlled with IV Tylenol and morphine as needed. Continue Ancef/Flagyl. I will defer to general surgery service regarding timing of discontinuation of antibiotics. (5) Acute blood loss anemia Is this a current diagnosis for this admission?: Yes Plan: Monitor H&H. Hemoglobin 9.6>9.2--> 8.6 (6) Marginal ulcer Is this a current diagnosis for this admission?: Yes (7) Hypotension due to blood loss Is this a current diagnosis for this admission?: Yes Plan: Albumin 25 g IV (may need to be followed by furosemide single dose). (8) Epilepsy Qualifiers: Epilepsy type: unspecified Intractability: not intractable Status epilepticus: without status epilepticus Qualified Code(s): G40.909 - Epilepsy, unspecified, not intractable, without status epilepticus Is this a current diagnosis for this admission?: Yes (9) Hypothyroidism Qualifiers: Hypothyroidism type: unspecified Qualified Code(s): E03.9 - Hypothyroidism, unspecified Is this a current diagnosis for this admission?: Yes Plan: Change Synthroid from IV to J-tube. Will resume 88 mcg p.o. daily dose. Critical Time Critical Time (minutes): 60 Level of Care: ICU -: 1. The care of a critical patient is a dynamic process. This note is a bank representative synopsis but static in nature. The timeframe for treatments given in order is not necessarily the actual time these treatments may have been done. 2. This patient requires critical care secondary to ongoing requirements for therapy not offered or safe outside the critical care environment. Transfer to a lower level of care will result in altered life or limb morbidity and mortality. 3. Multidisciplinary rounds completed. 4. ABCDE bundle addressed.
[2019-12-09] MEDS: RINGERS SOLUTION,LACTATED 1,000 ML IV PRN (17:49)
[2019-12-09] MEDS: ALBUTEROL SULFATE 0.083% NEB 2.5 MG/3 ML AMPUL NEB PRN (22:24)
[2019-12-10] MEDS: METRONIDAZOLE 500 MG/NS RTU 500 MG/100 ML RTUPB IV SCH ×4 (00:48→18:26)
[2019-12-10] MEDS: METHOCARBAMOL INJ/PF 1000 MG/10 ML SDV IV SCH (01:42)
[2019-12-10] MEDS: ALBUTEROL SULFATE 0.083% NEB 2.5 MG/3 ML AMPUL NEB PRN (02:43)
[2019-12-10 04:27] LABS: ABSOLUTE EOSINOPHILS # (AUTO) 0.1 10^3/uL (0.0-0.6); ABSOLUTE LYMPHOCYTES (AUTO) 1.1 10^3/uL (0.5-4.7); ABSOLUTE MONOCYTES (AUTO) 2.4 10^3/uL (0.1-1.4); ABSOLUTE NEUT (AUTO) 14.7 10^3/uL (1.7-8.2); BASOPHILS % (AUTO) 0.1 % (0-2); EOSINOPHILS % (AUTO) 0.3 % (0-6); HEMATOCRIT 20.5 % (36.0-47.0); LYMPHOCYTES % (AUTO) 6.2 % (13-45); MEAN CORPUSCULAR HEMOGLOBIN 30.6 pg (27.0-33.4); MEAN CORPUSCULAR HGB CONC 34.6 g/dL (32.0-36.0); MEAN CORPUSCULAR VOLUME 88 fl (80-97); MONOCYTES % (AUTO) 13.2 % (3-13); PLATELET COUNT 184 10^3/uL (150-450); RED BLOOD COUNT 2.32 10^6/uL (3.72-5.28); SEGMENTED NEUTROPHILS % (AUTO) 80.2 % (42-78); TOTAL CELLS COUNTED % (AUTO) 100 %; WHITE BLOOD COUNT 18.4 10^3/uL (4.0-10.5)
[2019-12-10 04:29] LABS: HEMOGLOBIN 7.1 g/dL (12.0-15.5)
[2019-12-10] MEDS ORDERED: NORMAL SALINE 250 ML IV PRN (04:32)
[2019-12-10 04:36] LABS: BLOOD UREA NITROGEN 17 mg/dL (7-20); GLUCOSE 106 mg/dL (75-110); PHOSPHORUS 2.5 mg/dL (2.5-4.5); POTASSIUM 3.3 mmol/L (3.6-5.0)
[2019-12-10 04:41] LABS: ANION GAP 5 (5-19); CARBON DIOXIDE 28 mmol/L (22-30); CHLORIDE 106 mmol/L (98-107)
[2019-12-10] MEDS ORDERED: POTASSI CL 20 MEQ/50 ML RIDER 20 MEQ/50 ML RTUPB IV ONE (04:56)
[2019-12-10] MEDS: VALPROATE SODIUM SYRUP 250 MG/5 ML UDCUP JT SCH ×3 (05:01→21:53)
[2019-12-10] MEDS: DEXMEDETOMIDINE IN 0.9 % NACL 400 MCG/100 ML RTUPB IV PRN (05:04)
[2019-12-10] MEDS: HYDROCOD/ACETAMIN 7.5-325 MG/15 ML ORAL SOLN UDCUP JT PRN ×2 (05:04→17:05)
[2019-12-10] MEDS: POTASSI CL 20 MEQ/50 ML RIDER 20 MEQ/50 ML RTUPB IV SCH ×2 (05:16→06:46)
[2019-12-10] MEDS: LEVOTHYROXINE SODIUM 0.088 MG TABLET JT SCH (06:21)
[2019-12-10] MEDS: CEFAZOLIN 1 GM/D5W RTU 1 GM/50 ML RTUPB IV SCH ×3 (06:22→21:54)
--- NOTE | 2019-12-10 08:07 | RADIOLOGY REPORT (SQ) ---
EXAM DESCRIPTION: CHEST SINGLE VIEW IMAGES COMPLETED DATE/TIME: 12/10/2019 6:20 am REASON FOR STUDY: wheezing, dyspnea COMPARISON: 12/08/2019 EXAM PARAMETERS: NUMBER OF VIEWS: One view. TECHNIQUE: Single frontal radiographic view of the chest acquired. RADIATION DOSE: NA LIMITATIONS: Low lung volumes. FINDINGS: LUNGS AND PLEURA: There is perihilar airspace disease. MEDIASTINUM AND HILAR STRUCTURES: No masses. Contour normal. HEART AND VASCULAR STRUCTURES: Heart is enlarged. The central vascular prominence. BONES: No acute findings. HARDWARE: NG tube remains in place. OTHER: No other significant finding. IMPRESSION: Findings are consistent with vascular congestion new from yesterday. NG tube remains in place. TECHNICAL DOCUMENTATION: JOB ID: [id number] 2010 [employer]- All Rights Reserved Reading location - IP/workstation name: [email or web address]
[2019-12-10] MEDS: MORPHINE SULFATE 10 MG/ML INJ IV PRN ×2 (08:23→19:42)
[2019-12-10] MEDS ORDERED: HALOPERIDOL LACTATE INJ 5 MG/1 ML VIAL IV ONE (09:00)
--- NOTE | 2019-12-10 10:10 | PDOC PROGRESS REPORT ---
Subjective Progress Note for:: 12/10/19 Subjective:: up in chair, more confused today have not restarted her home meds as yet not on formulary, family bringing them today Reason For Visit: UPPER GI BLEED Physical Exam Vital Signs: Temp Pulse Resp BP Pulse Ox 99.7 F 100 18 132/78 H 95 12/10/19 08:00 12/10/19 08:00 12/10/19 08:00 12/10/19 08:00 12/10/19 08:00 Intake & Output 12/09/19 12/10/19 12/11/19 06:59 06:59 06:59 Intake Total 962 1609 600 Output Total 1055 1510 60 Balance -93 99 540 Weight 110.3 kg 108.9 kg General appearance: PRESENT: no acute distress Head exam: PRESENT: normocephalic Eye exam: PRESENT: EOMI Ear exam: PRESENT: normal external ear exam Mouth exam: PRESENT: dry mucosa Neck exam: PRESENT: full ROM Respiratory exam: PRESENT: clear to auscultation shwetha Cardiovascular exam: PRESENT: RRR Pulses: PRESENT: normal radial pulses, normal femoral pulses Vascular exam: PRESENT: normal capillary refill Breast: PRESENT: Normal GI/Abdominal exam: PRESENT: soft, other - jps min op Rectal exam: PRESENT: deferred Extremities exam: PRESENT: full ROM Musculoskeletal exam: PRESENT: full ROM Neurological exam: PRESENT: awake, oriented to place Skin exam: PRESENT: dry Results Laboratory Results: 12/10/19 04:09 12/10/19 04:09 12/07/19 12/10/19 12/10/19 02:06 04:09 04:09 WBC 18.4 H RBC 2.32 L Hgb 7.1 L Hct 20.5 L MCV 88 MCH 30.6 MCHC 34.6 RDW 15.0 H Plt Count 184 Seg Neutrophils % 80.2 H Sodium 135.1 L 138.9 Potassium 4.8 3.3 L Chloride 107 106 Carbon Dioxide 20 L 28 Anion Gap 8 5 BUN 26 H 17 Creatinine 0.63 0.48 L Est GFR ( Amer) > 60 > 60 Glucose 120 H 106 Calcium 7.4 L 8.0 L Phosphorus 2.5 Magnesium 2.0 Blood Type Antibody Screen 12/10/19 04:50 WBC RBC Hgb Hct MCV MCH MCHC RDW Plt Count Seg Neutrophils % Sodium Potassium Chloride Carbon Dioxide Anion Gap BUN Creatinine Est GFR ( Amer) Glucose Calcium Phosphorus Magnesium Blood Type O POSITIVE Antibody Screen NEGATIVE 12/08/19 12/09/19 12:18 12:10 Troponin I < 0.012 < 0.012 Impressions: Chest X-Ray 12/10/19 00:00 IMPRESSION: Findings are consistent with vascular congestion new from yesterday. NG tube remains in place. Assessment & Plan - Plan Summary Plan Summary: pt diiuresed yesterday less swollen hct this am 20 1 unit ordered more confused today, however on precedex and home meds yet to start no obvious bleeding iain tube feeds will increase rate to 40cc will plan on ugi in am to check anastomosis ok to restart hoime meds via ng
[2019-12-10] MEDS ORDERED: ZIPRASIDONE MESYLATE INJ/PF 20 MG SDV IM PRN (10:58)
[2019-12-10] MEDS: SERTRALINE HCL 50 MG TABLET JT SCH (11:13)
[2019-12-10 11:40] LABS: HEMATOCRIT 25.4 % (36.0-47.0); HEMOGLOBIN 8.8 g/dL (12.0-15.5); MEAN CORPUSCULAR HEMOGLOBIN 30.8 pg (27.0-33.4); MEAN CORPUSCULAR HGB CONC 34.8 g/dL (32.0-36.0); MEAN CORPUSCULAR VOLUME 88 fl (80-97); PLATELET COUNT 199 10^3/uL (150-450); RED BLOOD COUNT 2.87 10^6/uL (3.72-5.28); RED CELL DISTRIBUTION WIDTH 14.8 % (11.5-14.0); WHITE BLOOD COUNT 18.5 10^3/uL (4.0-10.5)
--- NOTE | 2019-12-10 13:23 | PDOC CRITICAL CARE PROG REPORT ---
General Date:: 12/10/19 ICU Day:: 5 Hospital Day:: 5 Resuscitation Status: Full Code Events in the past 12 to 24 Hours:: This 69-year-old obese female was originally seen in consultation at the request of Dr. Kalia Hernandez for recommendations on further evaluation and management of hypotension and postoperative ventilator management. The patient underwent gastrectomy with esophagojejunal anastomosis for a bleeding gastric ulcer on 12/06/2019. She initially presented to [facility] with hematemesis. She continued to have massive hemorrhage, prompting emergent operative intervention. She has received a total of 6 units PRBC, 1 unit platelets, 6 units FFP and 1 unit cryoprecipitate. She returned from the OR on mechanical ventilatory support. At the time of clinical interview, she remains intubated. She is awake, alert and interactive. She wants the tube out. Case was discussed with Dr. Hernandez, who reports identifying a bleeding gastric artery located at the margin of a previous Curtis-en-Y gastric anastomosis. 12/07: Patient was successfully extubated to nasal cannula yesterday. Cooperating diligently with incentive spirometry. Complains of diffuse back pain ("uncomfortable in bed"). No ecchymoses. Reports frequent belching but no flatus. Wants to know if Trinh catheter can be removed. Not requiring vasopressors for blood pressure support. Reports satisfactory postoperative pain control on IV Tylenol and morphine. General surgery recommendations to start tube feeds noted. 12/08: Case discussed with Dr. Hernandez. The patient was able to tolerate being out of bed to chair for several hours yesterday. Overall, in good spirits; however, does seem to have periods of anxiety. She has remained tachycardic subsequent to surgery. She does occasionally endorse discomfort but denies unsatisfactory postop pain control. On the other hand, it is noted that she takes Vyvanse and Adderall at home and has missed several doses. Her other complaint is that she is "puffy". Although she does diligently attempt incentive spirometry, she is only able to pull about 200 mL. At present, she seems to have satisfactory oxygen saturation on 35% face tent. 12/09: Case discussed with Dr. Hernandez. Continues to do well postoperatively. Mentally/psychologically, the patient is starting to show signs of delirium. She has emotional lability, irritability and occasionally demonstrates confusion factual information. In the interim, we did start a low-dose Precedex infusion, which has been quite helpful. However, she appears to develop hypotension while on Precedex infusion. Consequently, we did try a 2.5 mg dose of Haldol IV (single dose) this morning, which has provide the patient with considerable relief. In fact, her tachycardia is dramatically improved. At the time of clinical interview, the patient is out of bed to a bedside chair. She is able to move around and adjust her position in the chair quite nimbly. Review of systems relevant to events:: Cardiovascular: Hypotension Gastrointestinal: Hematemesis, postop abdominal pain Respiratory: Hypoxia, postoperative atelectasis Hematologic: Anemia Reason for ICU Addmission:: s/p gastrectomy with esophagojejnal anastamosis, on mechanically assisted ventilator, hypotension due to blood loss - Medications: Medications reviewed and adjusted accordingly: Yes Vasopressors:: None Sedation:: Not applicable Physical Exam Vital Signs: Temp Pulse Resp BP Pulse Ox 100.0 F 96 15 118/56 L 100 12/10/19 12:00 12/10/19 12:00 12/10/19 12:00 12/10/19 12:00 12/10/19 12:00 Intake & Output 12/09/19 12/10/19 12/11/19 06:59 06:59 06:59 Intake Total 962 1609 700 Output Total 1055 1510 225 Balance -93 99 475 Weight 110.3 kg 108.9 kg Weight/Height Weight 108.9 kg Height 1.73 m General appearance: PRESENT: disheveled, mild distress, well-developed, well- nourished Head exam: PRESENT: atraumatic, normocephalic Eye exam: PRESENT: conjunctiva pink, EOMI, PERRLA. ABSENT: scleral icterus Neck exam: ABSENT: carotid bruit, JVD, lymphadenopathy, thyromegaly Respiratory exam: PRESENT: crackles, decreased breath sounds, rales. ABSENT: prolonged expiratory phas, rhonchi, wheezes Cardiovascular exam: PRESENT: RRR. ABSENT: gallop, rubs, systolic murmur Pulses: PRESENT: normal carotid pulses, normal radial pulses GI/Abdominal exam: PRESENT: hypoactive bowel sounds, soft. ABSENT: distended, guarding, mass, organolmegaly, rebound, tenderness Extremities exam: PRESENT: full ROM. ABSENT: calf tenderness, clubbing, pedal edema Neurological exam: PRESENT: alert, awake, CN II-XII grossly intact. ABSENT: motor sensory deficit Psychiatric exam: PRESENT: agitated, anxious Tubes/Lines: PRESENT: Nasogastic Tube, Other - 2 BAN drains. Jejunostomy tube. Laboratory/Radiographs Laboratory Results: 12/10/19 11:25 12/10/19 04:09 12/07/19 12/10/19 12/10/19 02:06 04:09 04:09 WBC 18.4 H RBC 2.32 L Hgb 7.1 L Hct 20.5 L MCV 88 MCH 30.6 MCHC 34.6 RDW 15.0 H Plt Count 184 Seg Neutrophils % 80.2 H Sodium 135.1 L 138.9 Potassium 4.8 3.3 L Chloride 107 106 Carbon Dioxide 20 L 28 Anion Gap 8 5 BUN 26 H 17 Creatinine 0.63 0.48 L Est GFR ( Amer) > 60 > 60 Glucose 120 H 106 Calcium 7.4 L 8.0 L Phosphorus 2.5 Magnesium 2.0 Blood Type Antibody Screen 12/10/19 12/10/19 04:50 11:25 WBC 18.5 H RBC 2.87 L Hgb 8.8 L Hct 25.4 L MCV 88 MCH 30.8 MCHC 34.8 RDW 14.8 H Plt Count 199 Seg Neutrophils % Sodium Potassium Chloride Carbon Dioxide Anion Gap BUN Creatinine Est GFR ( Amer) Glucose Calcium Phosphorus Magnesium Blood Type O POSITIVE Antibody Screen NEGATIVE 12/08/19 12/09/19 12/10/19 12:18 12:10 11:25 Troponin I < 0.012 < 0.012 NT-Pro-B Natriuret Pep 858 H Impressions: Chest X-Ray 12/10/19 00:00 IMPRESSION: Findings are consistent with vascular congestion new from [facility]. NG tube remains in place. All labs, radiographs, diagnostic studies and EKGs were personally reviewed: Yes In addition, reports of radiographic and diagnostic studies were read: Yes Assessment and Plan - Diagnosis (1) Postoperative hypoxia Is this a current diagnosis for this admission?: Yes Plan: Of note, proBNP was elevated (858) and chest x-ray findings are compatible with vascular congestion. She may benefit from diuresis. Incentive spirometry. (2) Delirium due to multiple etiologies Is this a current diagnosis for this admission?: Yes Plan: Case discussed with Dr. Hernandez. Will restart home medications, as able. As Haldol 2.5 mg appears to have had a helpful effect, may consider Geodon 10 mg IM every 12 hours as needed. (3) Chest pain Qualifiers: Chest pain type: precordial pain Qualified Code(s): R07.2 - Precordial pain Is this a current diagnosis for this admission?: Yes Plan: I doubt that this is of cardiac etiology. Opponent I has been undetectable x2. The patient's chest pain seems to be most exquisitely associated with her level of anxiety. Home medications also include Vyvanse and Adderall. (4) Hemorrhagic shock Is this a current diagnosis for this admission?: Yes (5) Upper GI hemorrhage Is this a current diagnosis for this admission?: Yes (6) Acute postoperative pain Is this a current diagnosis for this admission?: Yes (7) Acute blood loss anemia Is this a current diagnosis for this admission?: Yes (8) Marginal ulcer Is this a current diagnosis for this admission?: Yes (9) Hypotension due to blood loss Is this a current diagnosis for this admission?: Yes (10) Epilepsy Qualifiers: Epilepsy type: unspecified Intractability: not intractable Status epilepticus: without status epilepticus Qualified Code(s): G40.909 - Epilepsy, unspecified, not intractable, without status epilepticus Is this a current diagnosis for this admission?: Yes Plan: Restart Depakote (takes Depakote ER 1500 mg p.o. nightly at home). (11) Hypothyroidism Qualifiers: Hypothyroidism type: unspecified Qualified Code(s): E03.9 - Hypothyroidism, unspecified Is this a current diagnosis for this admission?: Yes Plan: Change Synthroid from IV to J-tube. Will resume 88 mcg p.o. daily dose. Critical Time Critical Time (minutes): 60 Level of Care: ICU -: 1. The care of a critical patient is a dynamic process. This note is a senior account representative synopsis but static in nature. The timeframe for treatments given in order is not necessarily the actual time these treatments may have been done. 2. This patient requires critical care secondary to ongoing requirements for therapy not offered or safe outside the critical care environment. Transfer to a lower level of care will result in altered life or limb morbidity and mortality. 3. Multidisciplinary rounds completed. 4. ABCDE bundle addressed.
[2019-12-11] MEDS: HYDROCOD/ACETAMIN 7.5-325 MG/15 ML ORAL SOLN UDCUP JT PRN ×4 (00:38→23:03)
[2019-12-11] MEDS: METRONIDAZOLE 500 MG/NS RTU 500 MG/100 ML RTUPB IV SCH ×4 (00:38→18:55)
[2019-12-11 06:14] LABS: HEMATOCRIT 27.6 % (36.0-47.0); HEMOGLOBIN 9.7 g/dL (12.0-15.5); MEAN CORPUSCULAR HGB CONC 35.2 g/dL (32.0-36.0); MEAN CORPUSCULAR VOLUME 88 fl (80-97); PLATELET COUNT 261 10^3/uL (150-450); RED BLOOD COUNT 3.13 10^6/uL (3.72-5.28); WHITE BLOOD COUNT 15.7 10^3/uL (4.0-10.5)
[2019-12-11] MEDS: VALPROATE SODIUM SYRUP 250 MG/5 ML UDCUP JT SCH ×3 (06:17→23:05)
[2019-12-11] MEDS: LEVOTHYROXINE SODIUM 0.088 MG TABLET JT SCH (06:17)
[2019-12-11] MEDS: CEFAZOLIN 1 GM/D5W RTU 1 GM/50 ML RTUPB IV SCH ×3 (06:18→23:04)
[2019-12-11 06:38] LABS: BLOOD UREA NITROGEN 17 mg/dL (7-20); CALCIUM 8.2 mg/dL (8.4-10.2); GLUCOSE 106 mg/dL (75-110); POTASSIUM 3.9 mmol/L (3.6-5.0)
[2019-12-11 06:43] LABS: CARBON DIOXIDE 30 mmol/L (22-30); CHLORIDE 107 mmol/L (98-107)
[2019-12-11 06:49] LABS: ANION GAP 3 (5-19)
--- NOTE | 2019-12-11 07:48 | PDOC PROGRESS REPORT ---
Subjective Progress Note for:: 12/11/19 Subjective:: awake this am cooperative no bm yesterday recieved 1 unit prbc. Reason For Visit: UPPER GI BLEED Physical Exam Vital Signs: Temp Pulse Resp BP Pulse Ox 100.2 F 106 H 18 165/73 H 100 12/11/19 05:59 12/10/19 22:00 12/11/19 06:15 12/11/19 06:09 12/11/19 06:15 Intake & Output 12/10/19 12/11/19 12/12/19 06:59 06:59 06:59 Intake Total 1659 1100 Output Total 1510 1445 Balance 149 -345 Weight 108.9 kg 107 kg General appearance: PRESENT: no acute distress Head exam: PRESENT: normocephalic Eye exam: PRESENT: EOMI Mouth exam: PRESENT: moist Teeth exam: PRESENT: poor dentation Neck exam: PRESENT: full ROM Respiratory exam: PRESENT: clear to auscultation shwetha Cardiovascular exam: PRESENT: RRR Pulses: PRESENT: normal radial pulses, normal femoral pulses Vascular exam: PRESENT: normal capillary refill Breast: PRESENT: Normal GI/Abdominal exam: PRESENT: soft, other - sabrina serous Rectal exam: PRESENT: deferred Gentrourinary exam: PRESENT: indwelling catheter Extremities exam: PRESENT: full ROM Musculoskeletal exam: PRESENT: full ROM Neurological exam: PRESENT: alert, awake, oriented to place Psychiatric exam: PRESENT: appropriate affect Skin exam: PRESENT: dry Results Laboratory Results: 12/11/19 05:50 12/11/19 05:50 12/07/19 12/10/19 12/11/19 02:06 11:25 05:50 WBC 18.5 H 15.7 H RBC 2.87 L 3.13 L Hgb 8.8 L 9.7 L Hct 25.4 L 27.6 L MCV 88 88 MCH 30.8 31.0 MCHC 34.8 35.2 RDW 14.8 H 15.0 H Plt Count 199 261 Sodium 135.1 L Potassium 4.8 Chloride 107 Carbon Dioxide 20 L Anion Gap 8 BUN 26 H Creatinine 0.63 Est GFR ( Amer) > 60 Glucose 120 H Calcium 7.4 L 12/11/19 05:50 WBC RBC Hgb Hct MCV MCH MCHC RDW Plt Count Sodium 140.0 Potassium 3.9 Chloride 107 Carbon Dioxide 30 Anion Gap 3 L BUN 17 Creatinine 0.33 L Est GFR ( Amer) > 60 Glucose 106 Calcium 8.2 L 12/08/19 12/09/19 12/10/19 12:18 12:10 11:25 Troponin I < 0.012 < 0.012 NT-Pro-B Natriuret Pep 858 H Impressions: Chest X-Ray 12/10/19 00:00 IMPRESSION: Findings are consistent with vascular congestion new from yesterday. NG tube remains in place. Assessment & Plan - Plan Summary Plan Summary: doing ok will obtain ugi arlene
[2019-12-11] MEDS: RINGERS SOLUTION,LACTATED 1,000 ML IV PRN (09:17)
[2019-12-11] MEDS ORDERED: NITROGLYCERIN 0.4 MG/TAB 25 TAB/BOTTLE ONE (09:22)
[2019-12-11] MEDS: SERTRALINE HCL 50 MG TABLET JT SCH (09:29)
[2019-12-11] MEDS ORDERED: NITROGLYCERIN 0.4 MG/TAB 25 TAB/BOTTLE SL ONE (10:00)
[2019-12-11] MEDS: MORPHINE SULFATE 10 MG/ML INJ IV PRN ×3 (12:45→20:35)
--- NOTE | 2019-12-11 16:21 | RADIOLOGY REPORT (SQ) ---
EXAM DESCRIPTION: CT ABD/PELVIS NO ORAL OR IV IMAGES COMPLETED DATE/TIME: 12/11/2019 3:59 pm REASON FOR STUDY: Post UGI to assess for esophagojeunostomy (s/p emergency gastrectomy) COMPARISON: Upper GI same date TECHNIQUE: CT scan of the abdomen and pelvis performed with oral contrast and no intravenous contras t. Images reviewed with lung, soft tissue, and bone windows. Reconstructed coronal and sagittal MPR i mages reviewed. All images stored on PACS. All CT scanners at this facility use dose modulation, iterative reconstruction, and/or weight based d osing when appropriate to reduce radiation dose to as low as reasonably achievable (ALARA). [facility]: Dose Right [facility]: CareDose [facility]: Dose Right [facility]: Teradose 4D [facility]: Smart Revert RADIATION DOSE: CT Rad equipment meets quality standard of care and radiation dose reduction techniq ues were employed. CTDIvol: 27.1 mGy. DLP: 1567 mGy-cm. mGy. LIMITATIONS: None. FINDINGS: LOWER CHEST: No significant findings. No nodules or infiltrates. NON-CONTRASTED LIVER, SPLEEN, ADRENALS: Large bilateral pleural effusions with atelectasis opacities. PANCREAS: No masses. No peripancreatic inflammatory changes. GALLBLADDER: No identified stones by CT criteria. No inflammatory changes to suggest cholecystitis. RIGHT KIDNEY AND URETER: No suspicious masses. Assessment limited by lack of IV contrast. No signif icant calcifications. No hydronephrosis or hydroureter. LEFT KIDNEY AND URETER: No suspicious masses. Assessment limited by lack of IV contrast. No signifi cant calcifications. No hydronephrosis or hydroureter. AORTA AND RETROPERITONEUM: No aneurysm. No retroperitoneal masses or adenopathy. BOWEL AND PERITONEAL CAVITY: Contrast injected in the esophagus jejunostomy tube. Small pouch at the anastomosis but no anastomotic leak. No obstruction. APPENDIX: Normal. PELVIS, BLADDER, AND ABDOMINAL WALL: Trinh catheter. BONES: No significant findings. OTHER: Anasarca. IMPRESSION: No identified leak at the anastomotic site. There is a small pouch containing contain c ontrast which communicates. Large bilateral pleural effusions and basilar opacities. TECHNICAL DOCUMENTATION: JOB ID: [id number] Quality ID # [id number]: Final reports with documentation of one or more dose reduction techniques (e.g., Au tomated exposure control, adjustment of the mA and/or kV according to patient size, use of iterative reconstruction technique) 2010 [employer]- All Rights Reserved Reading location - IP/workstation name: [email or web address]
--- NOTE | 2019-12-11 16:42 | RADIOLOGY REPORT (SQ) ---
EXAM DESCRIPTION: UGI W/ SINGLE CONTRAST IMAGES COMPLETED DATE/TIME: 12/11/2019 12:52 pm REASON FOR STUDY: r/o leak for esophagojejunostomy COMPARISON: CT of the abdomen pelvis dated 10/11/2019. TECHNIQUE: Under fluoroscopic guidance, patient ingested water soluble contrast. Fluoroscopic spot i mages and routine radiographic images acquired and stored on PACS. 12 MM BARIUM TABLET GIVEN: No. LIMITATIONS: Body habitus. FLUOROSCOPY TIME: FLUORO TIME: 1 minutes 12 seconds 14 images saved to PACS. FINDINGS: NEUROMUSCULAR COORDINATION OF SWALLOW: Not assessed due to jejunostomy-tube. ESOPHAGEAL MOTILITY: Not assessed due to jejunostomy -tube. ESOPHAGEAL MUCOSA: Do not assess due to jejunostomy-tube. ANASTOMOSIS SITE: Small pouch filled with contrast. No extravasation at the anastomosis site. DUODENUM: Mucosa normal. No extrinsic masses or malrotation. PROXIMAL JEJUNUM: Normal mucosal pattern. No dilatation, segmentation, strictures or masses. NON-GI TRACT STRUCTURES: No significant finding. OTHER: No other significant finding. IMPRESSION: NO EXTRAVASATION OF CONTRAST. SMALL POUCH CONTAINING CONTRAST. COMMENT: Quality ID [id number]: Final reports for procedures using fluoroscopy that document radiation exp osure indices, or exposure time and number of fluorographic images (if radiation exposure indices are not available) TECHNICAL DOCUMENTATION: JOB ID: [id number] 2010 [employer]- All Rights Reserved Reading location - IP/workstation name: [email or web address]
--- NOTE | 2019-12-11 18:00 | PDOC CRITICAL CARE PROG REPORT ---
General Date:: 12/11/19 ICU Day:: 6 Hospital Day:: 6 Resuscitation Status: Full Code Events in the past 12 to 24 Hours:: 12/05: 69-year-old obese female seen in consultation at the request of Dr. Kalia Hernandez for recommendations on further evaluation and management of hypotension and postoperative ventilator management after gastrectomy with esophagojejunal anastomosis for a bleeding marginal ulcer. She has received a total of 6 units PRBC, 1 unit platelets, 6 units FFP and 1 unit cryoprecipitate. She returned from the OR on mechanical ventilatory support. 12/07: Patient was successfully extubated to nasal cannula yesterday. Cooperating diligently with incentive spirometry. Complains of diffuse back pain ("uncomfortable in bed"). No ecchymoses. Reports frequent belching but no flatus. Wants to know if Trinh catheter can be removed. Not requiring vasopressors for blood pressure support. Reports satisfactory postoperative pain control on IV Tylenol and morphine. General surgery recommendations to start tube feeds noted. 12/08: Case discussed with Dr. Hernandez. The patient was able to tolerate being out of bed to chair for several hours yesterday. Overall, in good spirits; however, does seem to have periods of anxiety. She has remained tachycardic subsequent to surgery. She does occasionally endorse discomfort but denies unsatisfactory postop pain control. On the other hand, it is noted that she takes Vyvanse and Adderall at home and has missed several doses. Her other complaint is that she is "puffy". Although she does diligently attempt incentive spirometry, she is only able to pull about 200 mL. At present, she seems to have satisfactory oxygen saturation on 35% face tent. 12/09: Case discussed with Dr. Hernandze. Continues to do well postoperatively. Mentally/psychologically, the patient is starting to show signs of delirium. She has emotional lability, irritability and occasionally demonstrates confusion factual information. In the interim, we did start a low-dose Precedex infusion, which has been quite helpful. However, she appears to develop hypotension while on Precedex infusion. Consequently, we did try a 2.5 mg dose of Haldol IV (single dose) this morning, which has provide the patient with considerable relief. In fact, her tachycardia is dramatically improved. At the time of clinical interview, the patient is out of bed to a bedside chair. She is able to move around and adjust her position in the chair quite nimbly. 12/10: Case discussed with Dr. Hernandez. Patient continues to do well postoperatively. Spent time out of bed to chair for several hours yesterday. Although the patient has not yet been able to restart her home Vyvanse and Adderall, she did well with Haldol and Geodon yesterday. She is anticipating upper GI series today, in hopes of being able to have the NG tube removed. Review of systems relevant to events:: Cardiovascular: Hypotension Gastrointestinal: Hematemesis, postop abdominal pain Respiratory: Hypoxia, postoperative atelectasis Hematologic: Anemia Reason for ICU Addmission:: s/p gastrectomy with esophagojejnal anastamosis, on mechanically assisted ventilator, hypotension due to blood loss - Medications: Medications reviewed and adjusted accordingly: Yes Sedation:: Haldol as needed, Geodon as needed Physical Exam Vital Signs: Temp Pulse Resp BP Pulse Ox 99.7 F 117 H 19 167/86 H 97 12/11/19 08:00 12/11/19 08:00 12/11/19 08:00 12/11/19 08:00 12/11/19 08:00 Intake & Output 12/10/19 12/11/19 12/12/19 06:59 06:59 06:59 Intake Total 1659 1100 Output Total 1510 1445 150 Balance 149 -345 -150 Weight 108.9 kg 107 kg Weight/Height Weight 107 kg Height 1.73 m General appearance: PRESENT: no acute distress, well-developed, well-nourished Head exam: PRESENT: atraumatic, normocephalic Eye exam: PRESENT: conjunctiva pink, EOMI, PERRLA. ABSENT: scleral icterus Mouth exam: PRESENT: dry mucosa, tongue midline Respiratory exam: PRESENT: clear to auscultation shwetha. ABSENT: rales, rhonchi, wheezes Cardiovascular exam: PRESENT: RRR, tachycardia. ABSENT: diastolic murmur, rubs, systolic murmur Pulses: PRESENT: normal dorsalis pedis pul GI/Abdominal exam: PRESENT: hypoactive bowel sounds, soft, tenderness. ABSENT: distended, guarding, mass, organolmegaly, rebound Extremities exam: PRESENT: full ROM, pedal edema. ABSENT: calf tenderness, clubbing Neurological exam: PRESENT: alert, awake, oriented to person, oriented to place, oriented to time, oriented to situation, CN II-XII grossly intact. ABSENT: motor sensory deficit Laboratory/Radiographs Laboratory Results: 12/11/19 05:50 12/11/19 05:50 12/10/19 12/11/19 12/11/19 11:25 05:50 05:50 WBC 18.5 H 15.7 H RBC 2.87 L 3.13 L Hgb 8.8 L 9.7 L Hct 25.4 L 27.6 L MCV 88 88 MCH 30.8 31.0 MCHC 34.8 35.2 RDW 14.8 H 15.0 H Plt Count 199 261 Sodium 140.0 Potassium 3.9 Chloride 107 Carbon Dioxide 30 Anion Gap 3 L BUN 17 Creatinine 0.33 L Est GFR ( Amer) > 60 Glucose 106 Calcium 8.2 L 12/08/19 12/09/19 12/10/19 12:18 12:10 11:25 Troponin I < 0.012 < 0.012 NT-Pro-B Natriuret Pep 858 H Impressions: Chest X-Ray 12/10/19 00:00 IMPRESSION: Findings are consistent with vascular congestion new from yesterday. NG tube remains in place. All labs, radiographs, diagnostic studies and EKGs were personally reviewed: Yes In addition, reports of radiographic and diagnostic studies were read: Yes Assessment and Plan - Diagnosis (1) Postoperative hypoxia Is this a current diagnosis for this admission?: Yes Plan: Titrate supplemental oxygen to maintain SPO2 93+% Incentive spirometry. (2) Delirium due to multiple etiologies Is this a current diagnosis for this admission?: Yes Plan: Case discussed with Dr. Hernandez. Family members report that the patient does have a significant psychiatric history. Will restart home medications, as able. As Haldol 2.5 mg IV as needed, Geodon 10 mg IM every 12 hours as needed. (3) Chest pain Qualifiers: Chest pain type: precordial pain Qualified Code(s): R07.2 - Precordial pain Is this a current diagnosis for this admission?: Yes Plan: I doubt that this is of cardiac etiology. Troponin-I has been undetectable x2. Of note, she was given 1 sublingual nitroglycerin with immediate relief, suspicious for esophageal spasm. There is also a correlation with her level of anxiety. (4) Upper GI hemorrhage Is this a current diagnosis for this admission?: Yes Plan: Monitor BAN drain output. Status post gastrectomy with esophagojejunal anastomosis. Hemoglobin 9.7. Anticipating upper GI series today. (5) Acute postoperative pain Is this a current diagnosis for this admission?: Yes Plan: Well controlled with IV Tylenol and morphine as needed. Continue Ancef/Flagyl. I will defer to general surgery service regarding timing of discontinuation of antibiotics. (6) Acute blood loss anemia Is this a current diagnosis for this admission?: Yes (7) Marginal ulcer Is this a current diagnosis for this admission?: Yes (8) Hypotension due to blood loss Is this a current diagnosis for this admission?: Yes (9) Epilepsy Qualifiers: Epilepsy type: unspecified Intractability: not intractable Status epilepticus: without status epilepticus Qualified Code(s): G40.909 - Epilepsy, unspecified, not intractable, without status epilepticus Is this a current diagnosis for this admission?: Yes (10) Hypothyroidism Qualifiers: Hypothyroidism type: unspecified Qualified Code(s): E03.9 - Hypothyroidism, unspecified Is this a current diagnosis for this admission?: Yes Plan: Change Synthroid from IV to J-tube. Will resume 88 mcg p.o. daily dose. Critical Time Critical Time (minutes): 60 Level of Care: ICU -: 1. The care of a critical patient is a dynamic process. This note is a inside sales account representative synopsis but static in nature. The timeframe for treatments given in order is not necessarily the actual time these treatments may have been done. 2. This patient requires critical care secondary to ongoing requirements for therapy not offered or safe outside the critical care environment. Transfer to a lower level of care will result in altered life or limb morbidity and mortality. 3. Multidisciplinary rounds completed. 4. ABCDE bundle addressed.
[2019-12-11] MEDS ORDERED: ACETAMINOPHEN SOLN 325 MG/10.15 ML UDCUP ONE (21:02)
[2019-12-12] MEDS: METRONIDAZOLE 500 MG/NS RTU 500 MG/100 ML RTUPB IV SCH ×4 (01:27→18:27)
[2019-12-12] MEDS: FENTANYL CITRATE INJ/PF 100 MCG/2 ML AMPUL IV PRN ×4 (01:27→18:30)
[2019-12-12] MEDS ORDERED: ALBUMIN HUMAN 12.5 GM/50 ML RTUINJ IV ONE (03:10)
[2019-12-12] MEDS: LEVOTHYROXINE SODIUM 0.088 MG TABLET JT SCH (06:01)
[2019-12-12] MEDS: VALPROATE SODIUM SYRUP 250 MG/5 ML UDCUP JT SCH ×3 (06:01→21:02)
[2019-12-12] MEDS: CEFAZOLIN 1 GM/D5W RTU 1 GM/50 ML RTUPB IV SCH (06:02)
[2019-12-12 07:13] LABS: CALCIUM 8.1 mg/dL (8.4-10.2); GLUCOSE 108 mg/dL (75-110)
[2019-12-12 07:14] LABS: HEMATOCRIT 25.3 % (36.0-47.0); HEMOGLOBIN 8.6 g/dL (12.0-15.5); MEAN CORPUSCULAR HEMOGLOBIN 30.4 pg (27.0-33.4); MEAN CORPUSCULAR VOLUME 89 fl (80-97); PLATELET COUNT 209 10^3/uL (150-450); RED BLOOD COUNT 2.83 10^6/uL (3.72-5.28); RED CELL DISTRIBUTION WIDTH 15.2 % (11.5-14.0); WHITE BLOOD COUNT 17.1 10^3/uL (4.0-10.5)
[2019-12-12 07:14] LABS: ANION GAP 1 (5-19); BLOOD UREA NITROGEN 19 mg/dL (7-20); CARBON DIOXIDE 32 mmol/L (22-30); CHLORIDE 109 mmol/L (98-107); POTASSIUM 3.6 mmol/L (3.6-5.0)
[2019-12-12 07:44] LABS: ABSOLUTE MONOCYTES # (MANUAL) 0.7 10^3/uL (0.1-1.4); BAND NEUTROPHILS % (MANUAL) 1 % (3-5); BASOPHILS % (MANUAL) 0 % (0-2); EOSINOPHILS % (MANUAL) 0 % (0-6); LYMPHOCYTES % (MANUAL) 6 % (13-45); METAMYELOCYTES % (MANUAL) 3 % (0-1); MONOCYTES % (MANUAL) 4 % (3-13); NUCLEATED RED BLOOD CELLS 1 /100 WBC (0); SEGMENTED NEUTROPHILS % (MAN) 86 % (42-78); TOTAL CELLS COUNTED 100
[2019-12-12 07:45] LABS: ANISOCYTOSIS SLIGHT; POIKILOCYTOSIS SLIGHT
[2019-12-12 07:46] LABS: OVALOCYTES SLIGHT; PLATELET COMMENT ADEQUATE
[2019-12-12] MEDS: ACETAMINOPHEN 325 MG TABLET PO PRN ×2 (09:33→20:05)
[2019-12-12] MEDS: SERTRALINE HCL 50 MG TABLET JT SCH (09:33)
[2019-12-12] MEDS ORDERED: CEFEPIME 1 GM/D5W RTU 1 GM/50 ML RTUPB IV SCH (11:00)
--- NOTE | 2019-12-12 11:42 | PDOC PROGRESS REPORT ---
Subjective Progress Note for:: 12/12/19 Subjective:: feels ok Reason For Visit: UPPER GI BLEED Physical Exam Vital Signs: Temp Pulse Resp BP Pulse Ox 99.0 F 108 H 20 141/91 H 93 12/12/19 10:00 12/12/19 10:00 12/12/19 10:00 12/12/19 10:00 12/12/19 10:00 Intake & Output 12/11/19 12/12/19 12/13/19 06:59 06:59 06:59 Intake Total 2075 500 200 Output Total 1445 1420 295 Balance 630 -920 -95 Weight 107 kg 107.9 kg General appearance: PRESENT: no acute distress Head exam: PRESENT: normocephalic Eye exam: PRESENT: EOMI Ear exam: PRESENT: normal external ear exam Mouth exam: PRESENT: moist Neck exam: PRESENT: full ROM Respiratory exam: PRESENT: clear to auscultation shwetha Cardiovascular exam: PRESENT: RRR Pulses: PRESENT: normal radial pulses Vascular exam: PRESENT: normal capillary refill Breast: PRESENT: Normal GI/Abdominal exam: PRESENT: soft Rectal exam: PRESENT: deferred Extremities exam: PRESENT: full ROM Musculoskeletal exam: PRESENT: full ROM Neurological exam: PRESENT: alert, awake, oriented to person, oriented to place Psychiatric exam: PRESENT: appropriate affect Skin exam: PRESENT: dry Results Laboratory Results: 12/12/19 06:50 12/12/19 04:30 12/11/19 12/12/19 12/12/19 20:50 04:30 06:50 WBC 17.1 H RBC 2.83 L Hgb 8.6 L Hct 25.3 L MCV 89 MCH 30.4 MCHC 34.0 RDW 15.2 H Plt Count 209 Seg Neutrophils % Not Reportable Sodium 142.2 Potassium 3.6 Chloride 109 H Carbon Dioxide 32 H Anion Gap 1 L BUN 19 Creatinine 0.44 L Est GFR ( Amer) > 60 Glucose 108 Lactic Acid 1.9 Calcium 8.1 L 12/11/19 20:50 Blood Blood Culture (PCR) - Final Klebsiella Oxytoca 12/08/19 12/09/19 12/10/19 12:18 12:10 11:25 Troponin I < 0.012 < 0.012 NT-Pro-B Natriuret Pep 858 H Impressions: Chest X-Ray 12/10/19 00:00 IMPRESSION: Findings are consistent with vascular congestion new from yesterday. NG tube remains in place. Abdomen/Pelvis CT 12/11/19 00:00 IMPRESSION: No identified leak at the anastomotic site. There is a small pouch containing contain contrast which communicates. Large bilateral pleural effusions and basilar opacities. Upper GI Series-Limited 12/11/19 00:00 IMPRESSION: NO EXTRAVASATION OF CONTRAST. SMALL POUCH CONTAINING CONTRAST. Assessment & Plan - Plan Summary Plan Summary: doing ok will obtain ugi todday 12/12/2019. Patient is doing well today her NG tube is still in place that CT scan and an upper GI done yesterday did not show evidence of leak we will remove her NG tube today. We will increase activity start some p.o. liquids. Continue tube feeds continue IV antibiotics. We will order physical therapy for increase mobilization probably okay for patient to
[2019-12-12] MEDS: RINGERS SOLUTION,LACTATED 1,000 ML IV PRN (14:43)
--- NOTE | 2019-12-12 16:31 | PDOC CRITICAL CARE PROG REPORT ---
General Date:: 12/12/19 ICU Day:: 7 Hospital Day:: 7 Resuscitation Status: Full Code Events in the past 12 to 24 Hours:: 12/05: 69-year-old obese female seen in consultation at the request of Dr. Kalia Hernandez for recommendations on further evaluation and management of hypotension and postoperative ventilator management after gastrectomy with esophagojejunal anastomosis for a bleeding marginal ulcer. She has received a total of 6 units PRBC, 1 unit platelets, 6 units FFP and 1 unit cryoprecipitate. She returned from the OR on mechanical ventilatory support. 12/07: Patient was successfully extubated to nasal cannula yesterday. Cooperating diligently with incentive spirometry. Complains of diffuse back pain ("uncomfortable in bed"). No ecchymoses. Reports frequent belching but no flatus. Wants to know if Trinh catheter can be removed. Not requiring vasopressors for blood pressure support. Reports satisfactory postoperative pain control on IV Tylenol and morphine. General surgery recommendations to start tube feeds noted. 12/08: Case discussed with Dr. Hernandez. The patient was able to tolerate being out of bed to chair for several hours yesterday. Overall, in good spirits; however, does seem to have periods of anxiety. She has remained tachycardic subsequent to surgery. She does occasionally endorse discomfort but denies unsatisfactory postop pain control. On the other hand, it is noted that she takes Vyvanse and Adderall at home and has missed several doses. Her other complaint is that she is "puffy". Although she does diligently attempt incentive spirometry, she is only able to pull about 200 mL. At present, she seems to have satisfactory oxygen saturation on 35% face tent. 12/09: Case discussed with Dr. Hernandez. Continues to do well postoperatively. Mentally/psychologically, the patient is starting to show signs of delirium. She has emotional lability, irritability and occasionally demonstrates confusion factual information. In the interim, we did start a low-dose Precedex infusion, which has been quite helpful. However, she appears to develop hypotension while on Precedex infusion. Consequently, we did try a 2.5 mg dose of Haldol IV (single dose) this morning, which has provide the patient with considerable relief. In fact, her tachycardia is dramatically improved. At the time of clinical interview, the patient is out of bed to a bedside chair. She is able to move around and adjust her position in the chair quite nimbly. 12/10: Case discussed with Dr. Hernandez. Patient continues to do well postoperatively. Spent time out of bed to chair for several hours yesterday. Although the patient has not yet been able to restart her home Vyvanse and Adderall, she did well with Haldol and Geodon yesterday. She is anticipating upper GI series today, in hopes of being able to have the NG tube removed. 12/11: Doing well. In better spirits today. New fever (T-max 102.2 F). Has been on Ancef/metronidazole postoperatively. Had upper GI series yesterday. NG tube has been removed. Starting p.o. intake. Blood cultures obtained last night isolating gram-negative rods: Klebsiella oxytoca. Review of systems relevant to events:: Cardiovascular: Hypotension Gastrointestinal: Hematemesis, postop abdominal pain Respiratory: Hypoxia, postoperative atelectasis Hematologic: Anemia Reason for ICU Addmission:: s/p gastrectomy with esophagojejnal anastamosis, on mechanically assisted ventilator, hypotension due to blood loss - Medications: Medications reviewed and adjusted accordingly: Yes Physical Exam Vital Signs: Temp Pulse Resp BP Pulse Ox 99.0 F 101 H 17 126/66 H 96 12/12/19 08:00 12/12/19 08:00 12/12/19 08:00 12/12/19 08:00 12/12/19 08:00 Intake & Output 12/11/19 12/12/19 12/13/19 06:59 06:59 06:59 Intake Total 2075 500 200 Output Total 1445 1420 155 Balance 630 -920 45 Weight 107 kg 107.9 kg Weight/Height Weight 107.9 kg Height 1.73 m General appearance: PRESENT: no acute distress, well-developed, well-nourished Eye exam: PRESENT: conjunctiva pink, EOMI, PERRLA. ABSENT: scleral icterus Mouth exam: PRESENT: moist, tongue midline Respiratory exam: PRESENT: crackles, decreased breath sounds - Bases Pulses: PRESENT: normal dorsalis pedis pul GI/Abdominal exam: PRESENT: hypoactive bowel sounds, soft, tenderness, other - Laparotomy incision clean, dry and intact. ABSENT: distended, guarding, mass, organolmegaly, rebound Extremities exam: PRESENT: full ROM, pedal edema, +1 edema. ABSENT: calf tenderness, clubbing Neurological exam: PRESENT: alert, awake, oriented to person, oriented to place, oriented to time, oriented to situation, CN II-XII grossly intact. ABSENT: motor sensory deficit Tubes/Lines: PRESENT: Other - BAN drains, J-tube Laboratory/Radiographs Laboratory Results: 12/12/19 06:50 12/12/19 04:30 12/11/19 12/12/19 12/12/19 20:50 04:30 06:50 WBC 17.1 H RBC 2.83 L Hgb 8.6 L Hct 25.3 L MCV 89 MCH 30.4 MCHC 34.0 RDW 15.2 H Plt Count 209 Seg Neutrophils % Not Reportable Sodium 142.2 Potassium 3.6 Chloride 109 H Carbon Dioxide 32 H Anion Gap 1 L BUN 19 Creatinine 0.44 L Est GFR ( Amer) > 60 Glucose 108 Lactic Acid 1.9 Calcium 8.1 L 12/11/19 20:50 Blood Blood Culture (PCR) - Final Klebsiella Oxytoca 12/08/19 12/09/19 12/10/19 12:18 12:10 11:25 Troponin I < 0.012 < 0.012 NT-Pro-B Natriuret Pep 858 H Impressions: Chest X-Ray 12/10/19 00:00 IMPRESSION: Findings are consistent with vascular congestion new from yesterday. NG tube remains in place. Abdomen/Pelvis CT 12/11/19 00:00 IMPRESSION: No identified leak at the anastomotic site. There is a small pouch containing contain contrast which communicates. Large bilateral pleural effusions and basilar opacities. Upper GI Series-Limited 12/11/19 00:00 IMPRESSION: NO EXTRAVASATION OF CONTRAST. SMALL POUCH CONTAINING CONTRAST. All labs, radiographs, diagnostic studies and EKGs were personally reviewed: Yes In addition, reports of radiographic and diagnostic studies were read: Yes Assessment and Plan - Diagnosis (1) Bacteremia due to Klebsiella pneumoniae Is this a current diagnosis for this admission?: Yes Plan: Stop Ancef. Start cefepime 1 g IV every 12 hours. Central venous catheter looks good. However, if ever and leukocytosis are not improving within the next 24 hours on cefepime, removal of the central venous catheter should be considered. Repeat blood cultures in a.m. (2) Postoperative hypoxia Is this a current diagnosis for this admission?: Yes Plan: Titrate supplemental oxygen to maintain SPO2 93+% Incentive spirometry. (3) Delirium due to multiple etiologies Is this a current diagnosis for this admission?: Yes Plan: Case discussed with Dr. Hernandez. Family members report that the patient does have a significant psychiatric history. Will restart home medications, as able. As Haldol 2.5 mg IV as needed, Geodon 10 mg IM every 12 hours as needed. (4) Chest pain Qualifiers: Chest pain type: precordial pain Qualified Code(s): R07.2 - Precordial pain Is this a current diagnosis for this admission?: Yes (5) Upper GI hemorrhage Is this a current diagnosis for this admission?: Yes (6) Acute postoperative pain Is this a current diagnosis for this admission?: Yes (7) Acute blood loss anemia Is this a current diagnosis for this admission?: Yes (8) Marginal ulcer Is this a current diagnosis for this admission?: Yes (9) Hypotension due to blood loss Is this a current diagnosis for this admission?: Yes (10) Epilepsy Qualifiers: Epilepsy type: unspecified Intractability: not intractable Status epilepticus: without status epilepticus Qualified Code(s): G40.909 - Epilepsy, unspecified, not intractable, without status epilepticus Is this a current diagnosis for this admission?: Yes (11) Hypothyroidism Qualifiers: Hypothyroidism type: unspecified Qualified Code(s): E03.9 - Hypothyroidism, unspecified Is this a current diagnosis for this admission?: Yes (12) Bilateral pleural effusion Is this a current diagnosis for this admission?: Yes Plan: likely secondary to 3rd spacing from postoperative state and nutritional status. Too small to tap at this time. Critical Time Critical Time (minutes): 45 Level of Care: ICU -: 1. The care of a critical patient is a dynamic process. This note is a congressional representative synopsis but static in nature. The timeframe for treatments g iven in order is not necessarily the actual time these treatments may have been done. 2. This patient requires critical care secondary to ongoing requirements for therapy not offered or safe outside the critical care environment. Transfer to a lower level of care will result in altered life or limb morbidity and mortality. 3. Multidisciplinary rounds completed. 4. ABCDE bundle addressed.
[2019-12-12] MEDS ORDERED: PANTOPRAZOLE SODIUM 40 MG VIAL IV ONE (17:41)
[2019-12-12] MEDS ORDERED: MAG HYDROX/AL HYDROX/SIMETH SUSP 30 ML UDCUP ONE (17:41)
[2019-12-12 19:44] LABS: APPEARANCE,URINE SLIGHTLY-CLOUDY; BILIRUBIN,URINE NEGATIVE (NEGATIVE); COLOR,URINE AMBER; GLUCOSE, URINE NEGATIVE (NEGATIVE); KETONES,URINE NEGATIVE (NEGATIVE); PROTEIN,URINE 30 mg/dL (NEGATIVE); URINE SPECIFIC GRAVITY 1.021
[2019-12-12] MEDS: CEFEPIME 1 GM/D5W RTU 1 GM/50 ML RTUPB IV SCH (21:05)
[2019-12-12] MEDS: MORPHINE SULFATE 10 MG/ML INJ IV PRN (21:58)
[2019-12-13] MEDS: FENTANYL CITRATE INJ/PF 100 MCG/2 ML AMPUL IV PRN ×2 (00:37→08:48)
[2019-12-13] MEDS: METRONIDAZOLE 500 MG/NS RTU 500 MG/100 ML RTUPB IV SCH ×4 (01:00→18:02)
[2019-12-13] MEDS: MORPHINE SULFATE 10 MG/ML INJ IV PRN ×3 (02:41→19:20)
[2019-12-13 05:11] LABS: HEMOGLOBIN 9.3 g/dL (12.0-15.5); MEAN CORPUSCULAR HEMOGLOBIN 30.5 pg (27.0-33.4); MEAN CORPUSCULAR HGB CONC 34.5 g/dL (32.0-36.0); MEAN CORPUSCULAR VOLUME 89 fl (80-97); PLATELET COUNT 208 10^3/uL (150-450); RED BLOOD COUNT 3.06 10^6/uL (3.72-5.28); RED CELL DISTRIBUTION WIDTH 14.6 % (11.5-14.0)
[2019-12-13] MEDS: VALPROATE SODIUM SYRUP 250 MG/5 ML UDCUP JT SCH (05:11)
[2019-12-13] MEDS: LEVOTHYROXINE SODIUM 0.088 MG TABLET JT SCH (05:11)
[2019-12-13 05:34] LABS: ABSOLUTE LYMPHOCYTES# (MANUAL) 0.6 10^3/uL (0.5-4.7); ABSOLUTE MONOCYTES # (MANUAL) 3.2 10^3/uL (0.1-1.4); BAND NEUTROPHILS % (MANUAL) 6 % (3-5); BASOPHILS % (MANUAL) 0 % (0-2); EOSINOPHILS % (MANUAL) 4 % (0-6); LYMPHOCYTES % (MANUAL) 4 % (13-45); MONOCYTES % (MANUAL) 20 % (3-13); POLYCHROMASIA 1+; SEGMENTED NEUTROPHILS % (MAN) 66 % (42-78); TOTAL CELLS COUNTED 100
[2019-12-13 05:35] LABS: ANISOCYTOSIS 1+; BLOOD UREA NITROGEN 18 mg/dL (7-20); CALCIUM 8.2 mg/dL (8.4-10.2); GLUCOSE 102 mg/dL (75-110); PLATELET COMMENT ADEQUATE; POTASSIUM 3.7 mmol/L (3.6-5.0)
[2019-12-13] MEDS ORDERED: HALOPERIDOL LACTATE INJ 5 MG/1 ML VIAL IV ONE (05:40)
[2019-12-13 05:41] LABS: CARBON DIOXIDE 32 mmol/L (22-30); CHLORIDE 107 mmol/L (98-107)
[2019-12-13] MEDS ORDERED: HALOPERIDOL LACTATE INJ 5 MG/1 ML VIAL ONE (05:41)
[2019-12-13 05:42] LABS: ANION GAP 2 (5-19); PREALBUMIN 6.7 mg/dL (17.6-36.0)
[2019-12-13] MEDS ORDERED: PANTOPRAZOLE SODIUM 40 MG VIAL IV SCH (10:00)
[2019-12-13] MEDS: SERTRALINE HCL 50 MG TABLET JT SCH (10:56)
[2019-12-13] MEDS: CEFEPIME 1 GM/D5W RTU 1 GM/50 ML RTUPB IV SCH ×2 (10:57→21:44)
[2019-12-13] MEDS: FUROSEMIDE INJ/PF 20 MG/2 ML SDV IV SCH ×2 (10:58→21:45)
--- NOTE | 2019-12-13 11:01 | PDOC CRITICAL CARE PROG REPORT ---
General Date:: 12/13/19 ICU Day:: 7 Hospital Day:: 7 Resuscitation Status: Full Code Events in the past 12 to 24 Hours:: Starting to eat. Need to mobilize. Hope to downgrade later today. Review of systems relevant to events:: GI, neurological-anxious Reason for ICU Addmission:: s/p gastrectomy with esophagojejnal anastamosis, on mechanically assisted ventilator, hypotension due to blood loss - Medications: Medications reviewed and adjusted accordingly: Yes Vasopressors:: None Sedation:: None Physical Exam Vital Signs: Temp Pulse Resp BP Pulse Ox 99.1 F 94 14 160/103 H 98 12/13/19 08:00 12/13/19 09:28 12/13/19 10:30 12/13/19 10:21 12/13/19 10:30 Intake & Output 12/12/19 12/13/19 12/14/19 06:59 06:59 06:59 Intake Total 1500 500 Output Total 1420 1821 225 Balance 80 -1321 -225 Weight 107.9 kg 108 kg Weight/Height Weight 108 kg Height 5 ft 8 in General appearance: PRESENT: no acute distress, well-developed, well-nourished Head exam: PRESENT: atraumatic, normocephalic Eye exam: PRESENT: conjunctival injection Ear exam: PRESENT: normal external ear exam Mouth exam: PRESENT: moist, tongue midline Respiratory exam: PRESENT: clear to auscultation shwetha. ABSENT: rales, rhonchi, wheezes Cardiovascular exam: PRESENT: RRR. ABSENT: diastolic murmur, rubs, systolic murmur GI/Abdominal exam: PRESENT: normal bowel sounds, soft, other - Incision clean. JPs with small out put.. ABSENT: distended, guarding, mass, organolmegaly, rebound, tenderness Rectal exam: PRESENT: deferred Extremities exam: PRESENT: full ROM. ABSENT: calf tenderness, clubbing, pedal edema Musculoskeletal exam: PRESENT: normal inspection Neurological exam: PRESENT: alert, awake, oriented to person, oriented to place, oriented to time, oriented to situation, CN II-XII grossly intact, other - Sleepy. ABSENT: motor sensory deficit Psychiatric exam: PRESENT: anxious Skin exam: PRESENT: dry, intact, warm. ABSENT: cyanosis, rash Laboratory/Radiographs Laboratory Results: 12/13/19 04:35 12/13/19 04:35 12/12/19 12/13/19 12/13/19 18:22 04:35 04:35 WBC 16.0 H RBC 3.06 L Hgb 9.3 L Hct 27.0 L MCV 89 MCH 30.5 MCHC 34.5 RDW 14.6 H Plt Count 208 Seg Neutrophils % Not Reportable Sodium 141.3 Potassium 3.7 Chloride 107 Carbon Dioxide 32 H Anion Gap 2 L BUN 18 Creatinine 0.29 L Est GFR ( Amer) > 60 Glucose 102 Calcium 8.2 L Phosphorus 3.0 Magnesium 2.2 Prealbumin 6.7 L Urine Color DESTINY Urine Appearance SLIGHTLY-CLOUDY Urine pH 6.0 Ur Specific [place] 1.021 Urine Protein 30 H Urine Glucose (UA) NEGATIVE Urine Ketones NEGATIVE Urine Blood MODERATE H Urine RBC (Auto) 127 12/11/19 20:50 Blood Blood Culture (PCR) - Final Klebsiella Oxytoca 12/08/19 12/09/19 12/10/19 12:18 12:10 11:25 Troponin I < 0.012 < 0.012 NT-Pro-B Natriuret Pep 858 H Impressions: Chest X-Ray 12/10/19 00:00 IMPRESSION: Findings are consistent with vascular congestion new from yesterday. NG tube remains in place. Abdomen/Pelvis CT 12/11/19 00:00 IMPRESSION: No identified leak at the anastomotic site. There is a small pouch containing contain contrast which communicates. Large bilateral pleural effusions and basilar opacities. Upper GI Series-Limited 12/11/19 00:00 IMPRESSION: NO EXTRAVASATION OF CONTRAST. SMALL POUCH CONTAINING CONTRAST. All labs, radiographs, diagnostic studies and EKGs were personally reviewed: Yes In addition, reports of radiographic and diagnostic studies were read: Yes Assessment and Plan - Diagnosis (1) Bacteremia due to Klebsiella pneumoniae Is this a current diagnosis for this admission?: Yes Plan: On cefepime and flagyl. (2) Marginal ulcer Is this a current diagnosis for this admission?: Yes Plan: Repaired surgically. (3) Upper GI hemorrhage Is this a current diagnosis for this admission?: Yes Plan: The cause of her hemmorhagic shock which was brief. Plan Summary: If she does well, transfer to floor later today. Critical Time Critical Time (minutes): 35 Level of Care: ICU Anticipated discharge: Home with Homehealth Within: within 72 hours -: 1. The care of a critical patient is a dynamic process. This note is a tax compliance representative synopsis but static in nature. The timeframe for treatments given in order is not necessarily the actual time these treatments may have been done. 2. This patient requires critical care secondary to ongoing requirements for therapy not offered or safe outside the critical care environment. Transfer to a lower level of care will result in altered life or limb morbidity and mortality. 3. Multidisciplinary rounds completed. 4. ABCDE bundle addressed.
[2019-12-13] MEDS: MAG HYDROX/AL HYDROX/SIMETH SUSP 30 ML UDCUP PO PRN (15:02)
[2019-12-13] MEDS: RINGERS SOLUTION,LACTATED 1,000 ML IV PRN (18:01)
[2019-12-13] MEDS: PANTOPRAZOLE SODIUM 40 MG TABLET.DR PO SCH (21:44)
[2019-12-13] MEDS: DIVALPROEX SODIUM 500 MG TAB.SR.24H PO SCH (21:44)
[2019-12-14] MEDS: METRONIDAZOLE 500 MG/NS RTU 500 MG/100 ML RTUPB IV SCH (00:52)
[2019-12-14] MEDS: HYDROCOD/ACETAMIN 7.5-325 MG/15 ML ORAL SOLN UDCUP JT PRN ×3 (03:53→19:33)
[2019-12-14 06:02] LABS: ABSOLUTE EOSINOPHILS # (AUTO) 0.4 10^3/uL (0.0-0.6); ABSOLUTE MONOCYTES (AUTO) 3.4 10^3/uL (0.1-1.4); ABSOLUTE NEUT (AUTO) 12.7 10^3/uL (1.7-8.2); BASOPHILS % (AUTO) 0.2 % (0-2); EOSINOPHILS % (AUTO) 2.2 % (0-6); HEMATOCRIT 28.1 % (36.0-47.0); HEMOGLOBIN 9.6 g/dL (12.0-15.5); LYMPHOCYTES % (AUTO) 5.6 % (13-45); MEAN CORPUSCULAR HEMOGLOBIN 30.4 pg (27.0-33.4); MEAN CORPUSCULAR VOLUME 89 fl (80-97); MONOCYTES % (AUTO) 19.5 % (3-13); PLATELET COUNT 279 10^3/uL (150-450); RED BLOOD COUNT 3.15 10^6/uL (3.72-5.28); SEGMENTED NEUTROPHILS % (AUTO) 72.5 % (42-78); TOTAL CELLS COUNTED % (AUTO) 100 %; WHITE BLOOD COUNT 17.4 10^3/uL (4.0-10.5)
[2019-12-14 06:17] LABS: BLOOD UREA NITROGEN 18 mg/dL (7-20); GLUCOSE 106 mg/dL (75-110); POTASSIUM 3.7 mmol/L (3.6-5.0)
[2019-12-14 06:22] LABS: CARBON DIOXIDE 34 mmol/L (22-30); CHLORIDE 102 mmol/L (98-107)
[2019-12-14 06:23] LABS: ANION GAP 2 (5-19)
[2019-12-14] MEDS ORDERED: LISDEXAMFETAMINE DIMESYLATE 50 MG PO SCH (08:00)
--- NOTE | 2019-12-14 08:26 | PDOC PROGRESS REPORT ---
Subjective Progress Note for:: 12/14/19 Subjective:: feels better, more alert Reason For Visit: UPPER GI BLEED Physical Exam Vital Signs: Temp Pulse Resp BP Pulse Ox 98.3 F 105 H 14 111/59 L 97 12/13/19 20:00 12/13/19 20:00 12/14/19 06:04 12/14/19 06:04 12/14/19 06:04 Intake & Output 12/13/19 12/14/19 12/15/19 06:59 06:59 06:59 Intake Total 550 3150 Output Total 1821 2670 Balance -1271 480 Weight 108 kg 107.6 kg General appearance: PRESENT: no acute distress Head exam: PRESENT: normocephalic Eye exam: PRESENT: EOMI Ear exam: PRESENT: normal external ear exam Mouth exam: PRESENT: moist Teeth exam: PRESENT: edentulous Neck exam: PRESENT: full ROM Respiratory exam: PRESENT: clear to auscultation shwetha Cardiovascular exam: PRESENT: RRR Breast: PRESENT: Normal GI/Abdominal exam: PRESENT: soft - both sabrina's are clear serous Rectal exam: PRESENT: deferred Gentrourinary exam: PRESENT: indwelling catheter Extremities exam: PRESENT: full ROM Musculoskeletal exam: PRESENT: full ROM Neurological exam: PRESENT: alert, awake, oriented to person, oriented to place Skin exam: PRESENT: dry Results Laboratory Results: 12/14/19 05:39 12/14/19 05:39 12/14/19 12/14/19 05:39 05:39 WBC 17.4 H RBC 3.15 L Hgb 9.6 L Hct 28.1 L MCV 89 MCH 30.4 MCHC 34.0 RDW 15.0 H Plt Count 279 Seg Neutrophils % 72.5 Sodium 138.4 Potassium 3.7 Chloride 102 Carbon Dioxide 34 H Anion Gap 2 L BUN 18 Creatinine 0.33 L Est GFR ( Amer) > 60 Glucose 106 Calcium 8.0 L 12/11/19 20:50 Blood Blood Culture (PCR) - Final Klebsiella Oxytoca 12/08/19 12/09/19 12/10/19 12:18 12:10 11:25 Troponin I < 0.012 < 0.012 NT-Pro-B Natriuret Pep 858 H Impressions: Chest X-Ray 12/10/19 00:00 IMPRESSION: Findings are consistent with vascular congestion new from yesterday. NG tube remains in place. Abdomen/Pelvis CT 12/11/19 00:00 IMPRESSION: No identified leak at the anastomotic site. There is a small pouch containing contain contrast which communicates. Large bilateral pleural effusions and basilar opacities. Upper GI Series-Limited 12/11/19 00:00 IMPRESSION: NO EXTRAVASATION OF CONTRAST. SMALL POUCH CONTAINING CONTRAST. Assessment & Plan - Plan Summary Plan Summary: pt now taking full liquids vanilla ice cream pudding pts sabrina's remain clear serous iain tube feeds less anxious wbc sl up to 17k less edema plan cont full liquids ok to tx to reg floor.
--- NOTE | 2019-12-14 08:39 | PDOC CRITICAL CARE PROG REPORT ---
General Date:: 12/14/19 ICU Day:: 8 Hospital Day:: 8 Resuscitation Status: Full Code Events in the past 12 to 24 Hours:: More alert. Still sleepy but stable. Review of systems relevant to events:: Neurological, GI Reason for ICU Addmission:: s/p gastrectomy with esophagojejnal anastamosis, on mechanically assisted ventilator, hypotension due to blood loss, all resolved - Medications: Medications reviewed and adjusted accordingly: Yes Vasopressors:: None Sedation:: None Physical Exam Vital Signs: Temp Pulse Resp BP Pulse Ox 98.3 F 105 H 14 111/59 L 97 12/13/19 20:00 12/13/19 20:00 12/14/19 06:04 12/14/19 06:04 12/14/19 06:04 Intake & Output 12/13/19 12/14/19 12/15/19 06:59 06:59 06:59 Intake Total 550 3150 Output Total 1821 2670 Balance -1271 480 Weight 108 kg 107.6 kg Weight/Height Weight 107.6 kg Height 5 ft 8 in General appearance: PRESENT: no acute distress, cooperative, well-developed, well-nourished Head exam: PRESENT: atraumatic, normocephalic Eye exam: PRESENT: conjunctiva pink, EOMI, PERRLA. ABSENT: scleral icterus Ear exam: PRESENT: normal external ear exam Mouth exam: PRESENT: moist, tongue midline Respiratory exam: PRESENT: clear to auscultation shwetha. ABSENT: rales, rhonchi, wheezes Cardiovascular exam: PRESENT: RRR. ABSENT: diastolic murmur, rubs, systolic murmur GI/Abdominal exam: PRESENT: normal bowel sounds, soft, other - Incision clean. Tolerated tube feedings.. ABSENT: distended, guarding, mass, organolmegaly, rebound, tenderness Rectal exam: PRESENT: deferred Gentrourinary exam: PRESENT: indwelling catheter Extremities exam: PRESENT: full ROM. ABSENT: calf tenderness, clubbing, pedal edema Musculoskeletal exam: PRESENT: normal inspection Neurological exam: PRESENT: alert, awake, oriented to person, oriented to place, oriented to time, oriented to situation, CN II-XII grossly intact, other - Sl eepy.. ABSENT: motor sensory deficit Psychiatric exam: PRESENT: agitated - Occassionaly Skin exam: PRESENT: dry, intact, warm. ABSENT: cyanosis, rash Tubes/Lines: PRESENT: Peg Tube Laboratory/Radiographs Laboratory Results: 12/14/19 05:39 12/14/19 05:39 12/14/19 12/14/19 05:39 05:39 WBC 17.4 H RBC 3.15 L Hgb 9.6 L Hct 28.1 L MCV 89 MCH 30.4 MCHC 34.0 RDW 15.0 H Plt Count 279 Seg Neutrophils % 72.5 Sodium 138.4 Potassium 3.7 Chloride 102 Carbon Dioxide 34 H Anion Gap 2 L BUN 18 Creatinine 0.33 L Est GFR ( Amer) > 60 Glucose 106 Calcium 8.0 L 12/11/19 20:50 Blood Blood Culture (PCR) - Final Klebsiella Oxytoca 12/08/19 12/09/19 12/10/19 12:18 12:10 11:25 Troponin I < 0.012 < 0.012 NT-Pro-B Natriuret Pep 858 H Impressions: Chest X-Ray 12/10/19 00:00 IMPRESSION: Findings are consistent with vascular congestion new from yesterday. NG tube remains in place. Abdomen/Pelvis CT 12/11/19 00:00 IMPRESSION: No identified leak at the anastomotic site. There is a small pouch containing contain contrast which communicates. Large bilateral pleural effusions and basilar opacities. Upper GI Series-Limited 12/11/19 00:00 IMPRESSION: NO EXTRAVASATION OF CONTRAST. SMALL POUCH CONTAINING CONTRAST. All labs, radiographs, diagnostic studies and EKGs were personally reviewed: Yes In addition, reports of radiographic and diagnostic studies were read: Yes Assessment and Plan - Diagnosis (1) Bacteremia due to Klebsiella pneumoniae Is this a current diagnosis for this admission?: Yes Plan: Probably bacteremic from a UTI. Continue antibiotics for now. Probably contributing to sleepiness. (2) Marginal ulcer Is this a current diagnosis for this admission?: Yes Plan: Repaired surgically. (3) Upper GI hemorrhage Is this a current diagnosis for this admission?: Yes Plan: Resolved. Hgb 9.6 resolved. (4) UTI (urinary tract infection) Qualifiers: Urinary tract infection type: acute cystitis Hematuria presence: without hematuria Qualified Code(s): N30.00 - Acute cystitis without hematuria Is this a current diagnosis for this admission?: Yes Plan: Growing GNR, likely klebsiella, continue antibiotics. Remove mercado. (5) Physical deconditioning Is this a current diagnosis for this admission?: Yes Plan: PT ordered to mobilize more. Plan Summary: OK to transfer to medical floor. Critical Time Critical Time (minutes): 30 Level of Care: MEDICAL Anticipated discharge: Home Within: within 72 hours -: 1. The care of a critical patient is a dynamic process. This note is a public health representative synopsis but static in nature. The timeframe for treatments given in order is not necessarily the actual time these treatments may have been done. 2. This patient requires critical care secondary to ongoing requirements for therapy not offered or safe outside the critical care environment. Transfer to a lower level of care will result in altered life or limb morbidity and mortality. 3. Multidisciplinary rounds completed. 4. ABCDE bundle addressed.
[2019-12-14] MEDS: MORPHINE SULFATE 10 MG/ML INJ IV PRN (09:25)
[2019-12-14] MEDS: CEFEPIME 1 GM/D5W RTU 1 GM/50 ML RTUPB IV SCH ×2 (09:28→21:33)
[2019-12-14] MEDS: HYDROCHLOROTHIAZIDE 12.5 MG TABLET PO SCH (09:29)
[2019-12-14] MEDS: LOSARTAN POTASSIUM 50 MG TABLET PO SCH (09:31)
[2019-12-14] MEDS: SERTRALINE HCL 50 MG TABLET PO SCH (09:31)
[2019-12-14] MEDS: LEVOTHYROXINE SODIUM 0.088 MG TABLET PO SCH (09:33)
[2019-12-14] MEDS ORDERED: DEXTROAMPHETAMINE PO SCH (10:00)
[2019-12-14] MEDS ORDERED: (PENDING PHARMACY ID) (Sertraline Hcl [Sertraline Hcl] 25 MG) PO SCH (10:00)
[2019-12-14] MEDS ORDERED: [UNRECOGNIZED DRUG - OTHER] PO SCH (10:00)
[2019-12-14] MEDS ORDERED: (PENDING PHARMACY ID) (Telmisartan/Hydrochlorothiazid [Telmisartan-Hctz 40-12.5 Mg Tb] 1 E PO SCH (10:00)
[2019-12-14] MEDS ORDERED: AMPHETAMINE PO SCH (10:00)
[2019-12-14] MEDS: MAG HYDROX/AL HYDROX/SIMETH SUSP 30 ML UDCUP PO PRN (13:17)
[2019-12-14] MEDS: RINGERS SOLUTION,LACTATED 1,000 ML IV PRN (15:31)
[2019-12-14] MEDS: DIVALPROEX SODIUM 500 MG TAB.SR.24H PO SCH (21:31)
[2019-12-14] MEDS: PANTOPRAZOLE SODIUM 40 MG TABLET.DR PO SCH (21:32)
[2019-12-15] MEDS: HYDROCOD/ACETAMIN 7.5-325 MG/15 ML ORAL SOLN UDCUP JT PRN ×3 (01:04→12:53)
[2019-12-15] MEDS: LEVOTHYROXINE SODIUM 0.088 MG TABLET PO SCH (06:13)
[2019-12-15 07:59] LABS: HEMATOCRIT 28.3 % (36.0-47.0); HEMOGLOBIN 9.7 g/dL (12.0-15.5); MEAN CORPUSCULAR HEMOGLOBIN 30.3 pg (27.0-33.4); MEAN CORPUSCULAR HGB CONC 34.1 g/dL (32.0-36.0); MEAN CORPUSCULAR VOLUME 89 fl (80-97); PLATELET COUNT 361 10^3/uL (150-450); RED BLOOD COUNT 3.19 10^6/uL (3.72-5.28); RED CELL DISTRIBUTION WIDTH 14.8 % (11.5-14.0); WHITE BLOOD COUNT 16.3 10^3/uL (4.0-10.5)
[2019-12-15 08:24] LABS: ABSOLUTE LYMPHOCYTES# (MANUAL) 1.1 10^3/uL (0.5-4.7); ABSOLUTE MONOCYTES # (MANUAL) 3.1 10^3/uL (0.1-1.4); BASOPHILS % (MANUAL) 0 % (0-2); EOSINOPHILS % (MANUAL) 5 % (0-6); LYMPHOCYTES % (MANUAL) 4 % (13-45); METAMYELOCYTES % (MANUAL) 1 % (0-1); MONOCYTES % (MANUAL) 19 % (3-13); NUCLEATED RED BLOOD CELLS 1 /100 WBC (0); SEGMENTED NEUTROPHILS % (MAN) 68 % (42-78); TOTAL CELLS COUNTED 100
[2019-12-15 08:25] LABS: ANISOCYTOSIS SLIGHT; HOWELL-JOLLY BODIES PRESENT; POLYCHROMASIA 1+; TARGET CELLS SLIGHT
[2019-12-15 08:26] LABS: PLATELET COMMENT ADEQUATE
[2019-12-15 08:29] LABS: BLOOD UREA NITROGEN 12 mg/dL (7-20); CARBON DIOXIDE 36 mmol/L (22-30); CHLORIDE 98 mmol/L (98-107); GLUCOSE 103 mg/dL (75-110)
[2019-12-15 08:33] LABS: ANION GAP 2 (5-19)
[2019-12-15] MEDS: HYDROCHLOROTHIAZIDE 12.5 MG TABLET PO SCH (09:35)
[2019-12-15] MEDS: SERTRALINE HCL 50 MG TABLET PO SCH (09:35)
[2019-12-15] MEDS: LOSARTAN POTASSIUM 50 MG TABLET PO SCH (09:35)
[2019-12-15] MEDS: FUROSEMIDE INJ/PF 20 MG/2 ML SDV IV SCH ×2 (09:35→17:10)
[2019-12-15] MEDS: CEFEPIME 1 GM/D5W RTU 1 GM/50 ML RTUPB IV SCH ×2 (09:35→22:33)
--- NOTE | 2019-12-15 11:49 | PDOC PROGRESS REPORT ---
Subjective Progress Note for:: 12/15/19 Subjective:: pt feels better today iain full liquids Reason For Visit: UPPER GI BLEED Physical Exam Vital Signs: Temp Pulse Resp BP Pulse Ox 97.8 F 93 17 137/68 H 92 12/14/19 23:32 12/15/19 08:58 12/15/19 08:58 12/14/19 23:32 12/15/19 08:58 Intake & Output 12/14/19 12/15/19 12/16/19 06:59 06:59 06:59 Intake Total 3200 2972 856 Output Total 2670 940 80 Balance 530 2032 776 Weight 107.6 kg 107.6 kg General appearance: PRESENT: no acute distress Head exam: PRESENT: normocephalic Eye exam: PRESENT: EOMI Mouth exam: PRESENT: moist Teeth exam: PRESENT: edentulous Neck exam: PRESENT: full ROM Respiratory exam: PRESENT: clear to auscultation shwetha Cardiovascular exam: PRESENT: RRR Pulses: PRESENT: normal radial pulses, normal femoral pulses Breast: PRESENT: Normal GI/Abdominal exam: PRESENT: soft Rectal exam: PRESENT: deferred Gentrourinary exam: PRESENT: indwelling catheter Extremities exam: PRESENT: full ROM, +2 edema Musculoskeletal exam: PRESENT: full ROM Neurological exam: PRESENT: alert, awake, oriented to person, oriented to place Psychiatric exam: PRESENT: appropriate affect Skin exam: PRESENT: dry Results Laboratory Results: 12/15/19 07:46 12/15/19 07:46 12/15/19 12/15/19 07:46 07:46 WBC 16.3 H RBC 3.19 L Hgb 9.7 L Hct 28.3 L MCV 89 MCH 30.3 MCHC 34.1 RDW 14.8 H Plt Count 361 Seg Neutrophils % Not Reportable Sodium 135.8 L Potassium 4.0 Chloride 98 Carbon Dioxide 36 H Anion Gap 2 L BUN 12 Creatinine 0.30 L Est GFR ( Amer) > 60 Glucose 103 Calcium 8.0 L 12/11/19 20:56 Blood Blood Culture - Final Klebsiella Oxytoca 12/11/19 20:50 Blood Blood Culture (PCR) - Final Klebsiella Oxytoca 12/11/19 20:50 Blood Blood Culture - Final Klebsiella Oxytoca 12/12/19 18:22 Catheterized Urine Urine Culture - Final Pseudomonas Aeruginosa 12/08/19 12/09/1912/09/20 12:18 12:10 11:25 Troponin I < 0.012 < 0.012 NT-Pro-B Natriuret Pep 858 H Impressions: Chest X-Ray 12/10/19 00:00 IMPRESSION: Findings are consistent with vascular congestion new from yesterday. NG tube remains in place. Abdomen/Pelvis CT 12/11/19 00:00 IMPRESSION: No identified leak at the anastomotic site. There is a small pouch containing contain contrast which communicates. Large bilateral pleural effusions and basilar opacities. Upper GI Series-Limited 12/11/19 00:00 IMPRESSION: NO EXTRAVASATION OF CONTRAST. SMALL POUCH CONTAINING CONTRAST. Assessment & Plan - Plan Summary Plan Summary: s/p completion gastrectomy for bleeding doing better tdoay iain full lilquids still with 2+ edema will restart lasix cont full liquids anticipate dic in 1 or 2 days will cont folely due to lasix rx.
[2019-12-15] MEDS: MAG HYDROX/AL HYDROX/SIMETH SUSP 30 ML UDCUP PO PRN ×2 (12:28→20:26)
[2019-12-15] MEDS: ACETAMINOPHEN 325 MG TABLET PO PRN (20:25)
[2019-12-15] MEDS: DIVALPROEX SODIUM 500 MG TAB.SR.24H PO SCH (22:32)
[2019-12-15] MEDS: PANTOPRAZOLE SODIUM 40 MG TABLET.DR PO SCH (22:33)
[2019-12-16] MEDS: HYDROCOD/ACETAMIN 7.5-325 MG/15 ML ORAL SOLN UDCUP JT PRN (04:30)
[2019-12-16] MEDS: LEVOTHYROXINE SODIUM 0.088 MG TABLET PO SCH (06:04)
[2019-12-16 06:50] LABS: ABSOLUTE BASOPHILS # (AUTO) 0.1 10^3/uL (0.0-0.2); ABSOLUTE EOSINOPHILS # (AUTO) 0.6 10^3/uL (0.0-0.6); ABSOLUTE LYMPHOCYTES (AUTO) 0.9 10^3/uL (0.5-4.7); ABSOLUTE MONOCYTES (AUTO) 2.6 10^3/uL (0.1-1.4); ABSOLUTE NEUT (AUTO) 10.4 10^3/uL (1.7-8.2); BASOPHILS % (AUTO) 0.5 % (0-2); EOSINOPHILS % (AUTO) 4.1 % (0-6); HEMATOCRIT 25.4 % (36.0-47.0); HEMOGLOBIN 8.7 g/dL (12.0-15.5); LYMPHOCYTES % (AUTO) 6.4 % (13-45); MEAN CORPUSCULAR HEMOGLOBIN 30.4 pg (27.0-33.4); MEAN CORPUSCULAR HGB CONC 34.1 g/dL (32.0-36.0); MEAN CORPUSCULAR VOLUME 89 fl (80-97); MONOCYTES % (AUTO) 17.7 % (3-13); PLATELET COUNT 421 10^3/uL (150-450); RED BLOOD COUNT 2.86 10^6/uL (3.72-5.28); RED CELL DISTRIBUTION WIDTH 14.9 % (11.5-14.0); SEGMENTED NEUTROPHILS % (AUTO) 71.3 % (42-78); TOTAL CELLS COUNTED % (AUTO) 100 %; WHITE BLOOD COUNT 14.6 10^3/uL (4.0-10.5)
[2019-12-16 07:13] LABS: BLOOD UREA NITROGEN 10 mg/dL (7-20); CALCIUM 7.8 mg/dL (8.4-10.2); GLUCOSE 107 mg/dL (75-110); POTASSIUM 4.1 mmol/L (3.6-5.0)
[2019-12-16 07:18] LABS: CARBON DIOXIDE 35 mmol/L (22-30); CHLORIDE 99 mmol/L (98-107)
[2019-12-16 07:25] LABS: ANION GAP 2 (5-19)
--- NOTE | 2019-12-16 08:05 | PDOC DISCHARGE SUMMARY ---
General - Admit/Disc Date/PCP Admission Date/Primary Care Provider: 12/06/19 16:22 MARCOS RODRIGUEZ PA-C Discharge Date: 12/16/19 - Discharge Diagnosis Final Diagnosis: Upper GI hemorrhage - Assessment Summary: This is [age]-year-old female was admitted on 12/06/2019 with an acute upper GI hemorrhage. The patient was shopping at a grocery store and she underwent a acute vomiting episode which was noted to be blood and blood clots. She was brought to the emergency room via ambulance and continued to have a aggressive upper GI bleeding. 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 She then underwent a esophagojejunostomy. She was taken back to the intensive care unit where she remained intubated for the first time and eventually was extubated. In the intensive care unit she remained initially hypotensive and required further blood transfusion but eventually stabilized and eventually was transferred out of the intensive care unit after approximately a week. She was monitored on the floor and she underwent a upper GI which did not show a extravasation from her esophagojejunostomy which then she was started on a clear liquid diet which was slowly advanced to a's full liquid diet. She required diuresis with Lasix and has markedly decreased swelling. Today she is tolerating a full liquid diet well she is sitting up in a chair and wanting to be discharged home. She has a feeding tube in place which will be capped off and not utilized as she is Boss tolerating full liquid diet. She will be given a follow-up appointment with me a week after discharge. Final diagnosis is acute upper GI hemorrhage. - Additional Information Resuscitation Status: Full Code Discharge Diet: Full Liquids Discharge Activity: No Lifting Over 10 Pounds Referrals: MARCOS RODRIGUEZ PA-C [Primary Care Provider] - Follow up as needed Prescriptions: Hydrocodone/Acetaminophen [[place] 10-325 mg Tablet] 1 tab PO Q6HP PRN #20 tablet PRN Reason: Home Medications: Divalproex Sodium [Depakote Er 500 Mg Tab.Sr] 1,500 mg PO QHS 03/09/12 Dextroamphetamine/Amphetamine [Dextroamp-Amphetamin 10 mg Tab] 10 mg PO DAILY 12/07/19 Levothyroxine Sodium [Synthroid 0.088 mg Tablet] 88 mcg PO DAILY 12/07/19 Lisdexamfetamine Dimesylate [Vyvanse] 50 mg PO QAM 12/07/19 Meloxicam [Mobic 7.5 mg Tablet] 7.5 mg PO DAILY 12/07/19 Omeprazole 40 mg PO QHS 12/07/19 Sertraline HCl 25 mg PO DAILY 12/07/19 Telmisartan/Hydrochlorothiazid [Telmisartan-Hctz 40-12.5 mg Tb] 1 each PO DAILY 12/07/19 Hydrocodone/Acetaminophen [[place] 10-325 mg Tablet] 1 tab PO Q6HP PRN #20 tablet 12/16/19 History of Present Illiness History of Present Illness: YELITZA MCMILLAN is a 69 year old etdqso10/04/20 16:12 Initially I discussed the case with Dr. Hernandez. I also discussed it with interventional radiology here. Interventional radiology told me they did not have the coils to do the procedure. It was decided that patient's best care would be if she was transferred. Patient was accepted in transfer. While we are waiting for the helicopter to arrive patient suddenly became hypotensive, pale, diaphoretic and altered. Patient immediately had another liter of fluids started and was placed in reverse Trendelenburg. Her blood pressure did come up to 117 systolic. Pulse came down to 102. Her color did come back and became more alert and talkative. Blood had already been ordered in the meantime before this episode. We called and asked for to be rushed once this episode happened. We have now started blood transfusion. I then called Dr. Hernandez back and stated that I was concerned that maybe she was not stable for transfer. He has come and seen the patient and believes that she should not be transferred and is going to take the patient to the operating room. Physical Exam Vital Signs: Temp Pulse Resp BP Pulse Ox 97.7 F 69 16 125/50 L 93 12/15/19 06:56 12/15/19 20:40 12/15/19 20:40 12/15/19 06:56 12/16/19 05:44 Intake & Output 12/15/19 12/16/19 12/17/19 06:59 06:59 06:59 Intake Total 2972 2146 Output Total 940 190 Balance 2031 1955 Weight 107.6 kg 98.1 kg Results Laboratory Results: WBC 14.6 10^3/uL (4.0-10.5) H 12/16/19 06:42 RBC 2.86 10^6/uL (3.72-5.28) L 12/16/19 06:42 Hgb 8.7 g/dL (12.0-15.5) L 12/16/19 06:42 Hct 25.4 % (36.0-47.0) L 12/16/19 06:42 MCV 89 fl (80-97) 12/16/19 06:42 MCH 30.4 pg (27.0-33.4) 12/16/19 06:42 MCHC 34.1 g/dL (32.0-36.0) 12/16/19 06:42 RDW 14.9 % (11.5-14.0) H 12/16/19 06:42 Plt Count 421 10^3/uL (150-450) 12/16/19 06:42 Lymph % (Auto) 6.4 % (13-45) L 12/16/19 06:42 [place] % (Auto) 17.7 % (3-13) H 12/16/19 06:42 Eos % (Auto) 4.1 % (0-6) 12/16/19 06:42 Baso % (Auto) 0.5 % (0-2) 12/16/19 06:42 Absolute Neuts (auto) 10.4 10^3/uL (1.7-8.2) H 12/16/19 06:42 Absolute Lymphs (auto) 0.9 10^3/uL (0.5-4.7) 12/16/19 06:42 Absolute Monos (auto) 2.6 10^3/uL (0.1-1.4) H 12/16/19 06:42 Absolute Eos (auto) 0.6 10^3/uL (0.0-0.6) 12/16/19 06:42 Absolute Basos (auto) 0.1 10^3/uL (0.0-0.2) 12/16/19 06:42 Total Counted 100 12/15/19 07:46 Seg Neutrophils % 71.3 % (42-78) 12/16/19 06:42 Seg Neuts % (Manual) 68 % (42-78) 12/15/19 07:46 Band Neutrophils % 6 % (3-5) H 12/13/19 04:35 Lymphocytes % (Manual) 4 % (13-45) L 12/15/19 07:46 Atypical Lymphs % 3 % (0) 12/15/19 07:46 Monocytes % (Manual) 19 % (3-13) H 12/15/19 07:46 Eosinophils % (Manual) 5 % (0-6) 12/15/19 07:46 Basophils % (Manual) 0 % (0-2) 12/15/19 07:46 Metamyelocytes % 1 % (0-1) 12/15/19 07:46 Abs Neuts (Manual) 11.2 10^3/uL (1.7-8.2) H 12/15/19 07:46 Abs Lymphs (Manual) 1.1 10^3/uL (0.5-4.7) 12/15/19 07:46 Abs Monocytes (Manual) 3.1 10^3/uL (0.1-1.4) H 12/15/19 07:46 Absolute Eos (Manual) 0.8 10^3/uL (0.0-0.6) H 12/15/19 07:46 Abs Basophils (Manual) 0.0 10^3/uL (0.0-0.2) 12/15/19 07:46 Nucleated RBCs 1 /100 WBC (0) 12/15/19 07:46 Platelet Comment ADEQUATE 12/15/19 07:46 Polychromasia 1+ 12/15/19 07:46 Poikilocytosis SLIGHT 12/12/19 06:50 Anisocytosis SLIGHT 12/15/19 07:46 Target Cells SLIGHT 12/15/19 07:46 Ovalocytes SLIGHT 12/12/19 06:50 Vick-[place] Bodies PRESENT 12/15/19 07:46 RBC Morph Comment NORMO-CYTIC/CHROMIC 12/09/19 03:15 PT 15.9 SEC (11.4-15.4) H 12/07/19 02:06 INR 1.26 12/07/19 02:06 APTT 29.7 SEC (23.5-35.8) 12/07/19 02:06 Fibrinogen 206 mg/dL (209-497) L 12/07/19 02:06 Carbonic Acid 1.25 mmol/L (1.05-1.35) 12/07/19 10:20 HCO3/H2CO3 Ratio 17:1 12/07/19 10:20 ABG pH 7.33 (7.35-7.45) L 12/07/19 10:20 ABG pCO2 41.6 mmHg (35-45) 12/07/19 10:20 ABG pO2 51.9 mmHg (80-100) L 12/07/19 10:20 ABG HCO3 21.5 mmol/L (20-24) 12/07/19 10:20 ABG Total CO2 22.8 mmol/L (21-25) 12/07/19 10:20 ABG O2 Saturation 84.5 % (94-98) L 12/07/19 10:20 ABG Base Excess -4.1 mmol/L 12/07/19 10:20 FiO2 35% 12/07/19 10:20 Sodium 135.7 mmol/L (137-145) L 12/16/19 06:42 Potassium 4.1 mmol/L (3.6-5.0) 12/16/19 06:42 Chloride 99 mmol/L (98-107) 12/16/19 06:42 Carbon Dioxide 35 mmol/L (22-30) H 12/16/19 06:42 Anion Gap 2 (5-19) L 12/16/19 06:42 BUN 10 mg/dL (7-20) 12/16/19 06:42 Creatinine 0.32 mg/dL (0.52-1.25) L 12/16/19 06:42 Est GFR ( Amer) > 60 (>60) 12/16/19 06:42 Est GFR (MDRD) Non-Af > 60 (>60) 12/16/19 06:42 Glucose 107 mg/dL (75-110) 12/16/19 06:42 Lactic Acid 1.9 mmol/L (0.7-2.1) 12/11/19 20:50 Calcium 7.8 mg/dL (8.4-10.2) L 12/16/19 06:42 Ionized Calcium Vandana 1.12 mmol/L (1.14-1.30) L 12/07/19 02:06 Phosphorus 3.0 mg/dL (2.5-4.5) 12/13/19 04:35 Magnesium 2.2 mg/dL (1.6-2.3) 12/13/19 04:35 Total Bilirubin 0.2 mg/dL (0.2-1.3) 12/06/19 21:55 Direct Bilirubin 0.0 mg/dL (0.0-0.4) 12/06/19 21:55 Neonat Total Bilirubin Not Reportable 12/06/19 21:55 Neonat Direct Bilirubin Not Reportable 12/06/19 21:55 Neonat Indirect Bili Not Reportable 12/06/19 21:55 AST 93 U/L (14-36) H 12/06/19 21:55 ALT 67 U/L (<35) H 12/06/19 21:55 Alkaline Phosphatase 30 U/L (38-126) L 12/06/19 21:55 Troponin I < 0.012 ng/mL 12/09/19 12:10 NT-Pro-B Natriuret Pep 858 pg/mL (<125) H 12/10/19 11:25 Total Protein 3.1 g/dL (6.3-8.2) L 12/06/19 21:55 Albumin 1.5 g/dL (3.5-5.0) L 12/06/19 21:55 Prealbumin 6.7 mg/dL (17.6-36.0) L 12/13/19 04:35 TSH 1.47 uIU/mL (0.47-4.68) 12/07/19 02:06 Random Cortisol 62.70 ug/dL (None Established) 12/07/19 02:06 Urine Color DESTINY 12/12/19 18:22 Urine Appearance SLIGHTLY-CLOUDY 12/12/19 18:22 Urine pH 6.0 (5.0-9.0) 12/12/19 18:22 Ur Specific [place] 1.021 12/12/19 18:22 Urine Protein 30 mg/dL (NEGATIVE) H 12/12/19 18:22 Urine Glucose (UA) NEGATIVE mg/dL (NEGATIVE) 12/12/19 18: Urine Ketones NEGATIVE mg/dL (NEGATIVE) 12/12/19 18:22 Urine Blood MODERATE (NEGATIVE) H 12/12/19 18:22 Urine Nitrite (Reflex) POSITIVE (NEGATIVE) H 12/12/19 18:22 Urine Bilirubin NEGATIVE (NEGATIVE) 12/12/19 18:22 Urine Urobilinogen 4.0 mg/dL (<2.0) H 12/12/19 18:22 Leukocyte Esterase Rfl SMALL (NEGATIVE) H 12/12/19 18:22 Urine RBC (Auto) 127 /HPF 12/12/19 18:22 Urine WBC (Reflex) 17 /HPF 12/12/19 18:22 Squamous Epi Cells Auto <1 /HPF 12/12/19 18:22 Urine Mucus (Auto) OCC /LPF 12/12/19 18:22 Urine Ascorbic Acid 40 (NEGATIVE) H 12/12/19 18:22 Valproic Acid 52.1 ug/mL (50.0-120.0) 12/13/19 04:35 Blood Type O POSITIVE 12/10/19 04:50 Antibody Screen NEGATIVE 12/10/19 04:50 Crossmatch See Detail 12/10/19 04:50 12/08/19 12/09/19 12/10/19 12:18 12:10 11:25 Troponin I < 0.012 < 0.012 NT-Pro-B Natriuret Pep 858 H Impressions: Chest X-Ray 12/06/19 00:00 IMPRESSION: Endotracheal tube and nasogastric tube are in satisfactory position.. There also appears be a left basilar chest drain. Chest X-Ray 12/08/19 05:00 IMPRESSION: Extubation. Low lung volumes with bibasilar opacities, likely atelectasis. Chest X-Ray 12/10/19 00:00 IMPRESSION: Findings are consistent with vascular congestion new from yesterday. NG tube remains in place. Abdomen/Pelvis CT 12/11/19 00:00 IMPRESSION: No identified leak at the anastomotic site. There is a small pouch containing contain contrast which communicates. Large bilateral pleural effusions and basilar opacities. Upper GI Series-Limited 12/11/19 00:00 IMPRESSION: NO EXTRAVASATION OF CONTRAST. SMALL POUCH CONTAINING CONTRAST.
[2019-12-16] MEDS: CEFEPIME 1 GM/D5W RTU 1 GM/50 ML RTUPB IV SCH (09:24)
[2019-12-16] MEDS: FUROSEMIDE INJ/PF 20 MG/2 ML SDV IV SCH (09:24)
[2019-12-16] MEDS: LOSARTAN POTASSIUM 50 MG TABLET PO SCH (09:26)
[2019-12-16] MEDS: HYDROCHLOROTHIAZIDE 12.5 MG TABLET PO SCH (09:27)
[2019-12-16] MEDS: SERTRALINE HCL 50 MG TABLET PO SCH (09:27)
[2019-12-16 11:03] VITALS: BP 150/75
== END 2019-12-16 11:35 | disposition home or self-care (01) | DRG 326 ==
LOC: ER 13:51 → EH 16:22 → ICU 20:27 → 4S 12-14 12:30
PROVIDERS: ADMIT Surgery; ATTEND Surgery
PROC: 04L20ZZ Occlusion of Gastric Artery, Open Approach (ICD-10-PCS; 2019-12-06)
PROC: 0DHA0UZ Insertion of Feeding Device into Jejunum, Open Approach (ICD-10-PCS; 2019-12-06)
PROC: 0DJ08ZZ Inspection of Upper Intestinal Tract, Via Natural or Artificial Opening Endoscopic (ICD-10-PCS; 2019-12-06)
PROC: 06HM33Z Insertion of Infusion Device into Right Femoral Vein, Percutaneous Approach (ICD-10-PCS; 2019-12-06)
PROC: 03HC33Z Insertion of Infusion Device into Left Radial Artery, Percutaneous Approach (ICD-10-PCS; 2019-12-06)
PROC: 30243N1 Transfusion of Nonautologous Red Blood Cells into Central Vein, Percutaneous Approach (ICD-10-PCS; 2019-12-06)
PROC: 30243K1 Transfusion of Nonautologous Frozen Plasma into Central Vein, Percutaneous Approach (ICD-10-PCS; 2019-12-06)
PROC: 0DB60ZZ Excision of Stomach, Open Approach (ICD-10-PCS; principal; 2019-12-06 17:30)
PROC: 0DBA0ZZ Excision of Jejunum, Open Approach (ICD-10-PCS; 2019-12-06 17:30)
DX: K95.89 Other complications of other bariatric procedure (principal); K28.4 Chronic or unspecified gastrojejunal ulcer with hemorrhage; R57.8 Other shock; R57.1 Hypovolemic shock; D62 Acute posthemorrhagic anemia; J98.11 Atelectasis; J90 Pleural effusion, not elsewhere classified; R78.81 Bacteremia; N30.00 Acute cystitis without hematuria; D68.8 Other specified coagulation defects; G40.909 Epilepsy, unspecified, not intractable, without status epilepticus; I10 Essential (primary) hypertension; Y83.2 Surgical operation with anastomosis, bypass or graft as the cause of abnormal reaction of the patient, or of later complication, without mention of misadventure at the time of the procedure; K44.9 Diaphragmatic hernia without obstruction or gangrene; K43.9 Ventral hernia without obstruction or gangrene; Z98.84 Bariatric surgery status; E03.9 Hypothyroidism, unspecified; I95.89 Other hypotension; G89.18 Other acute postprocedural pain; Z79.890 Hormone replacement therapy; R09.02 Hypoxemia; R41.0 Disorientation, unspecified; R07.2 Precordial pain; B96.1 Klebsiella pneumoniae [K. pneumoniae] as the cause of diseases classified elsewhere
CPT/HCPCS: 00790; 36415; 36430; 36620; 43235; 71045; 74176; 74240; 80048; 80053; 80164; 81001; 82330; 82533; 82803; 83605; 83735; 83880; 84100; 84134; 84443; 84484; 85025; 85027; 85384; 85610; 85730; 86850; 86900; 86901; 86920; 87040; 87070; 87077; 87086; 87088; 87150; 87186; 88307; 88341; 88342; 93005; 93010; 94002; 94003; 94640; 94799; 96361; 96374; 99140; 99291; 99292; J0610; C9113; J0131; J0171; J0330; J0690; J0692; J1100; J1170; J1630; J1642; J1940; J2250; J2270; J2370; J2405; J2704; J2800; J3010; J3475; J3480; J3486; J3490; J7030; J7040; J7120; P9016; P9017; P9035; P9047; Q9968

== ENCOUNTER → 2019-12-28 | Outpatient (CLI) | payer MEDICARE, OTHER ==
[2019-12-28 14:28] LABS: ABSOLUTE BASOPHILS # (AUTO) 0.1 10^3/uL (0.0-0.2); ABSOLUTE EOSINOPHILS # (AUTO) 0.1 10^3/uL (0.0-0.6); ABSOLUTE LYMPHOCYTES (AUTO) 1.2 10^3/uL (0.5-4.7); ABSOLUTE MONOCYTES (AUTO) 1.4 10^3/uL (0.1-1.4); ABSOLUTE NEUT (AUTO) 6.7 10^3/uL (1.7-8.2); BASOPHILS % (AUTO) 1.1 % (0-2); EOSINOPHILS % (AUTO) 0.6 % (0-6); HEMATOCRIT 32.9 % (36.0-47.0); HEMOGLOBIN 11.2 g/dL (12.0-15.5); LYMPHOCYTES % (AUTO) 12.2 % (13-45); MEAN CORPUSCULAR HEMOGLOBIN 29.9 pg (27.0-33.4); MEAN CORPUSCULAR VOLUME 88 fl (80-97); MONOCYTES % (AUTO) 15.2 % (3-13); PLATELET COUNT 805 10^3/uL (150-450); RED BLOOD COUNT 3.74 10^6/uL (3.72-5.28); RED CELL DISTRIBUTION WIDTH 15.7 % (11.5-14.0); SEGMENTED NEUTROPHILS % (AUTO) 70.9 % (42-78); TOTAL CELLS COUNTED % (AUTO) 100 %; WHITE BLOOD COUNT 9.5 10^3/uL (4.0-10.5)
[2019-12-28 15:20] LABS: ALBUMIN 3.2 g/dL (3.5-5.0); ALKALINE PHOSPHATASE 79 U/L (38-126); ANION GAP 8 (5-19); ASPARTATE AMINO TRANSFERASE 17 U/L (14-36); BILIRUBIN,DIRECT 0.1 mg/dL (0.0-0.4); BILIRUBIN,TOTAL 0.4 mg/dL (0.2-1.3); BLOOD UREA NITROGEN 7 mg/dL (7-20); CARBON DIOXIDE 27 mmol/L (22-30); CHLORIDE 97 mmol/L (98-107); GLUCOSE 90 mg/dL (75-110); POTASSIUM 4.6 mmol/L (3.6-5.0); TOTAL PROTEIN 6.5 g/dL (6.3-8.2)
== END ==
LOC: OD 13:38
PROVIDERS: ATTEND Physician Assistant Surgical
DX: K92.2 Gastrointestinal hemorrhage, unspecified (principal); R53.83 Other fatigue
CPT/HCPCS: 36415; 80053; 85025